=== PATIENT | female | born 1940 | race Caucasian/White ===

== ENCOUNTER 2019-10-26 15:22 | Emergency (ER) | payer MEDICARE, OTHER, SELFPAY ==
--- NOTE | ~2019-10-26 | XR_ITS ---
EXAMINATION: XR chest 2V INDICATION: Wheezing and cough for 5 days PROCEDURE: 2 view chest COMPARISON: No prior studies for comparison. FINDINGS: The lungs are clear. Postsurgical changes consistent with CABG. The lungs are hyperinflated which is consistent with, but not diagnostic of chronic obstructive pulmonary disease. The cardiomed iastinal silhouette is within normal limits. There are no pleural effusions. There is no pneumothor ax suspected. IMPRESSION: 1: NO ACUTE CARDIOPULMONARY DISEASE. Reviewed, dictated and finalized at location A.
[2019-10-26 15:30] VITALS: BP 154/79; PULSE 75; RESP 16; TEMP 36.8; O2SAT 98
--- NOTE | 2019-10-26 15:44 | ED.URI ---
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 Patient her cough is from sinus drainage in her throat; denies fever nausea vomiting diarrhea, her O2 sats are stable at 90% Related Data Home Medications Medication Instructions Recorded Confirmed aspirin 81 mg PO DAILY 10/26/19 10/26/19 hydrochlorothiazide 25 mg PO DAILY 10/26/19 10/26/19 hydroxychloroquine 200 mg PO BID 10/26/19 10/26/19 leflunomide 20 mg PO DAILY 10/26/19 10/26/19 Allergies Allergy/AdvReac Type Severity Reaction Status Date / Time No Known Allergies Allergy Verified 10/26/19 15:41 Review of Systems Review of Systems: Narrative: CONSTITUTIONAL: Denies fever, chills, sweats. EYES: Denies visual changes, redness, discharge. ENT: Has rhinorrhea, sinus congestion, sore throat, otalgia. CARDIOVASCULAR: Denies chest pain, palpitations, edema. RESPIRATORY: Denies dyspnea, wheezing, occasional cough GASTROINTESTINAL: Denies abdominal pain, nausea, vomiting, diarrhea. GENITOURINARY: Denies dysuria, hematuria, abnormal discharge SKIN: Denies rash or itching. NEUROLOGIC: Denies numbness, or focal weakness. PSYCHIATRIC: Denies anxiety or depression. [facility] Past Medical History Medical History (Updated 10/26/19 @ 16:31 by Kelly Casiano CNP) Chronic anticoagulation HTN (hypertension) Surgical History Surgical History (Updated 10/26/19 @ 15:52 by Kelly Casiano CNP) Heart valve replaced Family History Family History Other Diabetes mellitus Social History Social History (Updated 10/26/19 @ 15:54 by Kelly Casiano CNP) Smoking status: Former smoker Alcohol intake: never Comments At time of signature, I agree with nursing past medical, surgical, social and family history. There is no relevant family history pertinent to the presenting complaint. Exam Narrative: Exam Narrative: GENERAL: This is a well-nourished, well-developed patient, in mild distress. Patient is very hard of hearing HEAD: normocephalic, atraumatic. EYES: PERRL. Sclera clear/white. Vision is grossly intact. EARS: External ears normal, auditory canals clear and without drainage, TMs normal without perforation. Hearing grossly intact. NOSE: External nose normal without nasal discharge, nares without redness, no rhinorrhea. THROAT: Mucous membranes moist, posterior pharynx NECK: Neck supple, non-tender CARDIOVASCULAR: Regular rate and rhythm without murmurs, gallops, or rubs. RESPIRATORY: Diminished to auscultation. Breath sounds equal bilaterally. Has random wheezes, no rales, or rhonchi. GASTROINTESTINAL: Abdomen soft, non-tender, SKIN: warm, intact with no suspicious lesions or rash, good texture and turgor. NEURO: awake, alert, and oriented to person, place and time. There were no obvious focal neurologic abnormalities. Steady gait EXTREMITIES: Normal range of motion. BACK: Nontender without deformity Course Course Emergency Course: Chest [id number] Vital Signs Vital signs: Vital Signs Temperature 98.3 F 10/26/19 15:30 Pulse Rate 75 10/26/19 15:30 Respiratory Rate 16 10/26/19 15:30 Blood Pressure 154/79 H 10/26/19 15:30 Pulse Oximetry 98 10/26/19 15:30 Temperature 98.3 F 10/26/19 15:30 Pulse Rate 75 10/26/19 15:30 Respiratory Rate 16 10/26/19 15:30 Blood Pressure 154/79 H 10/26/19 15:30 Pulse Oximetry 98 10/26/19 15:30 MDM
== END 2019-10-26 16:38 | disposition home or self-care (01) ==
PROVIDERS: Emergency Provider Nurse Practitioner; PCP Family Medicine
DX: J05.0 Acute obstructive laryngitis [croup] (principal); J01.10 Acute frontal sinusitis, unspecified; Z87.891 Personal history of nicotine dependence; I10 Essential (primary) hypertension; Z95.2 Presence of prosthetic heart valve; Z79.01 Long term (current) use of anticoagulants
CPT/HCPCS: 71046; 99203; G0463

== ENCOUNTER 2020-11-28 17:19 | Emergency (ER) | payer MEDICARE, OTHER, SELFPAY ==
--- NOTE | ~2020-11-28 | XR_ITS ---
EXAMINATION: XR chest 2V DATE: 11/28/2020 17:47 INDICATION: Cough and coarse breath sounds TECHNIQUE: PA and lateral views of the chest are obtained. COMPARISON: 10/26/2019 FINDINGS: The lungs are free of acute opacities. There is no pleural effusion or pneumothorax. The ca rdiomediastinal silhouette is normal. There is mild thoracic spondylosis. IMPRESSION: 1. No acute cardiopulmonary abnormality. Reviewed, dictated and finalized at location A.
[2020-11-28 17:29] VITALS: BP 157/83; PULSE 77; RESP 16; TEMP 36.8; O2SAT 99
[2020-11-28 17:41] VITALS: BP 157/83; PULSE 77; RESP 16; TEMP 36.8; O2SAT 99
--- NOTE | 2020-11-28 17:43 | ED.URI ---
HPI - URI/Sore Throat General Chief Complaint: Upper Respiratory Infection Stated Complaint: cough History of Present Illness HPI Narrative: This is a 80-year-old female presents to the urgent care complaining of cough congestion has been going on for approximately 2 to 3 weeks. Patient denies any fever nausea and/or vomiting 2 weeks ago patient states she was diagnosed with Covid. Related Data Home Medications Medication Instructions Recorded Confirmed aspirin 81 mg PO DAILY 10/26/19 11/28/20 hydrochlorothiazide 25 mg PO DAILY 10/26/19 11/28/20 hydroxychloroquine 200 mg PO BID 10/26/19 11/28/20 leflunomide 20 mg PO DAILY 10/26/19 11/28/20 cholecalciferol (vitamin D3) 25 mcg PO DAILY 11/28/20 11/28/20 [Vitamin D3] tramadol 50 mg PO Q6H PRN 11/28/20 11/28/20 Allergies Allergy/AdvReac Type Severity Reaction Status Date / Time No Known Allergies Allergy Verified 11/28/20 17:40 Review of Systems Review of Systems: CONSTITUTIONAL: Denies fever, chills, or sweats. EYES: Denies visual changes, redness, or discharge. ENT: Denies rhinorrhea, congestion, sore throat, or otalgia. CARDIOVASCULAR:Denies chest pain, palpitations, or edema. RESPIRATORY: Reports cough or dyspnea. GASTROINTESTINAL: Denies abdominal pain, nausea, vomiting, or diarrhea. GENITOURINARY: Denies dysuria or hematuria. SKIN:[Denies rash or itching. MUSCULOSKELETAL:Denies back pain, joint pain, or myalgia. NEUROLOGIC: Denies headache, numbness, or weakness. PSYCHIATRIC:Denies anxiety or depression [facility] Past Medical History Medical History (Updated 11/29/20 @ 00:01 by Serene Quintero) Chronic anticoagulation HTN (hypertension) Surgical History Surgical History (Updated 10/26/19 @ 15:52 by Kelly Casiano CNP) Heart valve replaced Family History Family History Other Diabetes mellitus Social History Social History (Updated 10/26/19 @ 15:54 by Kelly Casiano CNP) Smoking status: Former smoker Alcohol intake: never Comments At time as signature, I have reviewed and agree with nursing past medical, social, surgical and family history. Please see nursing chart for further information. There is no relevant family history pertinent to the presenting complaint. Exam Narrative: GENERAL:Well-appearing, well-nourished, and in no acute distress. HEAD:Normocephalic, atraumatic. EYES: PERRLA ENT: Nares clear, no rhinorrhea or epistaxis. Mucous membranes moist. NECK: Supple. CHEST: Clear to auscultation in upper lobes decrease in lower lobes. No respiratory distress. HEART: Regular rate and rhythm.Normal peripheral pulses. ABDOMEN: Soft, nontender, nondistended, normal active bowel sounds. EXTREMITIES: Normal range of motion. Trace edema. SKIN: Warm, dry, no rash. NEURO: No focal deficits. Alert and oriented x3. Course Course Emergency Course: Ordering Physician: Nate Mckeon APN Date of Service: 11/28/20 Procedure(s): XR chest 2V Accession Number(s): [id number] cc: Nate Mckeon APN; Venus, Esdras Douglass MD~ EXAMINATION: XR chest 2V DATE: 11/28/2020 17:47 INDICATION: Cough and coarse breath sounds TECHNIQUE: PA and lateral views of the chest are obtained. COMPARISON: 10/26/2019 FINDINGS: The lungs are free of acute opacities. There is no pleural effusion or pneumothorax. The cardiomediastinal silhouette is normal. There is mild thoracic spondylosis. IMPRESSION: 1. No acute cardiopulmonary abnormality. Vital Signs Vital signs: Vital Signs Temperature 98.3 F 11/28/20 17:29 Pulse Rate 77 11/28/20 17:29 Respiratory Rate 16 11/28/20 17:29 Blood Pressure 157/83 H 11/28/20 17:29 Pulse Oximetry 99 11/28/20 17:29 Temperature 98.3 F 11/28/20 17:41 Pulse Rate 77 11/28/20 17:41 Respiratory Rate 16 11/28/20 17:41 Blood Pressure 157/83 H 11/28/20 17:41 Pulse Oximetry 99 11/28/20 17:41 MDM - URI/So
== END 2020-11-28 18:27 | disposition home or self-care (01) ==
PROVIDERS: Emergency Provider Nurse Practitioner Family; PCP Family Medicine
DX: U07.1 COVID-19 (principal); R05.9 Cough, unspecified; Z87.891 Personal history of nicotine dependence; Z79.01 Long term (current) use of anticoagulants; I10 Essential (primary) hypertension; Z95.2 Presence of prosthetic heart valve
CPT/HCPCS: 71046; 99213; G0463

== ENCOUNTER 2021-07-19 10:06 | Emergency (ER) | payer MEDICARE, OTHER, SELFPAY ==
--- NOTE | ~2021-07-19 | XR_ITS ---
EXAMINATION: XR chest 2V DATE: 07/19/2021 11:31 INDICATION: Cough. TECHNIQUE: Frontal and lateral views of the chest were obtained. COMPARISON: Chest 2 views 11/28/2020 FINDINGS: There is mild atelectasis at left lung base. No pleural effusion or pneumothorax. The heart size is normal. There are surgical clips in the mediastinum. Radiopaque markers overlying the heart may be from aortic valve replacement. IMPRESSION: 1. Mild atelectasis at left lung base. Reviewed, dictated and finalized at location A.
[2021-07-19 10:11] VITALS: BP 164/64; PULSE 72; RESP 16; TEMP 36.2; O2SAT 100
--- NOTE | 2021-07-19 11:10 | ED.URI ---
HPI - URI/Sore Throat General Chief Complaint: Upper Respiratory Infection Stated Complaint: sinus infection Time Seen by Provider: 07/19/21 11:10 Source: patient and RN notes reviewed Mode of arrival: ambulatory Limitations: no limitations History of Present Illness HPI Narrative: 81-year-old female presents with concern for 4 to 5-day history of sinus congestion, headache, sinus pressure, green nasal drainage, ear fullness, muffled hearing, postnasal drainage. Is not vaccinated for flu or COVID. She denies taking her temperature, she denies nausea, vomiting, abdominal pain, fever. MD elicited complaint: cough and nasal congestion Related Data Home Medications Medication Instructions Recorded Confirmed aspirin 81 mg tablet,delayed 81 mg PO DAILY 10/26/19 07/19/21 release hydrochlorothiazide 25 mg tablet 25 mg PO DAILY 10/26/19 07/19/21 hydroxychloroquine 200 mg tablet 200 mg PO BID 10/26/19 07/19/21 leflunomide 20 mg tablet 20 mg PO DAILY 10/26/19 07/19/21 cholecalciferol (vitamin D3) 25 25 mcg PO DAILY 11/28/20 07/19/21 mcg (1,000 unit) tablet (Vitamin D3) tramadol 50 mg tablet 50 mg PO Q6H PRN Pain (Scale Score 11/28/20 07/19/21 7-10) Allergies Allergy/AdvReac Type Severity Reaction Status Date / Time No Known Allergies Allergy Verified 07/19/21 10:17 Review of Systems Review of Systems: CONSTITUTIONAL: Report malaise. Denies chills, sweats, or fever. EYES: Denies visual changes, redness, or discharge. ENT: Reports rhinorrhea, congestion, sinus pain, otalgia. Denies sore throat. CARDIOVASCULAR: Denies chest pain, palpitations, or edema. RESPIRATORY: Reports cough. Denies dyspnea. GASTROINTESTINAL: Denies abdominal pain, nausea, vomiting, diarrhea SKIN: Denies rash or itching. MUSCULOSKELETAL: Denies myalgia. NEUROLOGIC: Reports headache. All systems reviewed & are unremarkable except as noted in HPI and below PMFSH Past Medical History Medical History (Updated 07/19/21 @ 12:04 by Brielle Ross NP) Chronic anticoagulation HTN (hypertension) Surgical History Surgical History (Updated 10/26/19 @ 15:52 by Kelly Casiano CNP) Heart valve replaced Family History Family History Other Diabetes mellitus Social History Social History (Updated 10/26/19 @ 15:54 by Kelly Casiano CNP) Smoking status: Former smoker Alcohol intake: never Comments At time of signature, agree with nursing past medical, surgical, social and family history. There is no relevant family history pertinent to the presenting complaint Exam Narrative: GENERAL: Nontoxic-appearing and in no acute distress. HEAD: Normocephalic EYES: PERRLA, conjunctivae clear ENT: Nares clear, turbinates edematous and erythematous, clear discharge. Mucous membranes moist. TM pearly sifuentes with dull light reflex bilaterally; no tragal tenderness. Oropharynx not erythematous without lesions. Tonsils not enlarged and without exudate, no drooling, no hoarseness, no trismus, uvula midline. NECK: Supple. No lymphadenopathy CHEST: Clear to auscultation, breath sounds diminished on the left. No wheezing, rhonchi, rales, or stridor. No respiratory distress, speaks in full sentences. HEART: Regular rate and rhythm. No murmur heard. SKIN: Warm, dry, no rash. NEURO: Alert and oriented x3. PSYCH: Normal mood and affect Course Course Emergency Course: Patient is aware of diagnosis, understands and agrees to treatment plan. Anticipatory guidance given. Patient agrees to follow-up as directed and is aware of reasons to seek care at the emergency department. Portions of this record may have been created with voice recognition software Level of Care: Express Care Visit Vital Signs Vital signs: Vital Signs Temperature 97.2 F L 07/19/21 10:11 Pulse Rate 72 07/19/21 10:11 Respiratory Rate 16 07/19/21 10:11 Blood Pressure 164/64 H 07/19/21 10:11 Pulse Oximetry 100 05/2
== END 2021-07-19 12:10 | disposition home or self-care (01) ==
PROVIDERS: Emergency Provider Nurse Practitioner; PCP Family Medicine
DX: J06.9 Acute upper respiratory infection, unspecified (principal); R05.9 Cough, unspecified; Z20.822 Contact with and (suspected) exposure to COVID-19; Z87.891 Personal history of nicotine dependence; I10 Essential (primary) hypertension; Z79.82 Long term (current) use of aspirin
CPT/HCPCS: 71046; 87426; 87804; 99213; C9803; G0463

== ENCOUNTER 2021-12-05 10:57 | Emergency (ER) | payer MEDICARE, OTHER, SELFPAY ==
--- NOTE | 2021-12-05 11:03 | ED.URI ---
HPI - URI/Sore Throat General Chief Complaint: Upper Respiratory Infection Stated Complaint: sinus issues Time Seen by Provider: 12/05/21 11:03 Source: patient and RN notes reviewed History of Present Illness HPI Narrative: Patient is an 81-year-old female who presents the urgent care with complaints of sinus pressure, drainage and postnasal drainage. Patient states its been ongoing for approximately 1 week and she does tend to get it every time the weather changes. Patient states that she has been using Claritin without much relief. Denies of any fevers, nausea, vomiting, shortness of breath. No other acute complaints. No acute distress noted. Patient aware of the plan of care. Some parts of this dictation were generated by voice recognition software and may contain typographical and/or grammatical inaccuracies. Related Data Home Medications Medication Instructions Recorded Confirmed aspirin 81 mg tablet,delayed 81 mg PO DAILY 10/26/19 12/05/21 release hydrochlorothiazide 25 mg tablet 25 mg PO DAILY 10/26/19 12/05/21 hydroxychloroquine 200 mg tablet 200 mg PO BID 10/26/19 12/05/21 leflunomide 20 mg tablet 20 mg PO DAILY 10/26/19 12/05/21 cholecalciferol (vitamin D3) 25 25 mcg PO DAILY 11/28/20 12/05/21 mcg (1,000 unit) tablet (Vitamin D3) tramadol 50 mg tablet 50 mg PO Q6H PRN Pain (Scale Score 11/28/20 12/05/21 7-10) Allergies Allergy/AdvReac Type Severity Reaction Status Date / Time No Known Allergies Allergy Verified 12/05/21 11:16 Review of Systems Review of Systems: CONSTITUTIONAL: Denies fever, chills, or sweats. EYES: Denies visual changes, redness, or discharge. ENT: Reports of postnasal drainage, intermittent rhinorrhea and sinus congestion/pressure CARDIOVASCULAR: Denies chest pain, palpitations, or edema. RESPIRATORY: Denies cough or dyspnea. GASTROINTESTINAL: Denies abdominal pain, nausea, vomiting, or diarrhea. GENITOURINARY: Denies dysuria or hematuria. SKIN: Denies rash or itching. MUSCULOSKELETAL: Denies back pain, joint pain, or myalgia. NEUROLOGIC: Denies headache, numbness, or weakness. All other systems reviewed are negative, except as documented in HPI. PMFSH Past Medical History Medical History (Updated 12/05/21 @ 11:21 by EKATERINA Allen) Chronic anticoagulation HTN (hypertension) Surgical History Surgical History (Updated 10/26/19 @ 15:52 by Kelly Casiano, HENNY) Heart valve replaced Family History Family History Other Diabetes mellitus Social History Social History (Updated 10/26/19 @ 15:54 by Kelly Casiano, HENNY) Smoking status: Former smoker Alcohol intake: never Comments At the time of my signature, I reviewed and agree with the nursing past medical, surgical, social, and family history. There is no relevant family history pertinent to the patient complaint. Exam Narrative: GENERAL: This is a well-nourished, well-developed patient, in no apparent distress. HEAD: normocephalic, atraumatic. Frontal sinus tenderness EYES: PERRL. Sclera clear/white. Vision is grossly intact. EARS: External ears normal, auditory canals clear and without drainage, TMs normal without perforation. Hearing grossly intact. NOSE: External nose normal with no obvious nasal discharge, nares without redness, clear rhinorrhea. THROAT: Mucous membranes moist, posterior pharynx clear. Moderate postnasal drainage NECK: Neck supple, CARDIOVASCULAR: Regular rate and rhythm with murmur RESPIRATORY: Clear to auscultation. Breath sounds equal bilaterally. No wheezes, rales, or rhonchi. SKIN: warm, intact with no suspicious lesions or rash, good texture and turgor. NEURO: awake, alert, and oriented to person, place and time. There were no obvious focal neurologic abnormalities. EXTREMITIES: No clubbing, cyanosis, or edema. Course Course Level of Care: Express Care Visit Vital Signs Vital signs: Vital Signs
[2021-12-05 11:04] VITALS: BP 157/65; PULSE 98; RESP 14; TEMP 36.9; O2SAT 100
== END 2021-12-05 11:23 | disposition home or self-care (01) ==
PROVIDERS: Emergency Provider Nurse Practitioner Family
DX: J32.9 Chronic sinusitis, unspecified (principal); I10 Essential (primary) hypertension; Z79.01 Long term (current) use of anticoagulants; Z87.891 Personal history of nicotine dependence; Z79.82 Long term (current) use of aspirin
CPT/HCPCS: 99213; G0463

== ENCOUNTER 2021-12-10 09:01 | Emergency (ER) | payer MEDICARE, OTHER, SELFPAY ==
[2021-12-10 09:36] VITALS: BP 156/70; PULSE 88; RESP 20; TEMP 36.8; O2SAT 99
--- NOTE | 2021-12-10 10:03 | ED.GENADULT ---
HPI - General Adult General Chief complaint: Upper Respiratory Infection Stated complaint: Cough/Chest Congestion Source: patient Mode of arrival: ambulatory Limitations: no limitations History of Present Illness HPI narrative: Patient presents for evaluation of sick symptoms. She was seen here on 12/05/2021 was diagnosed with sinusitis. She was given steroids. She states that her symptoms of not improved with those. She reports sinus congestion, mucopurulent discharge from her nares, and productive cough of green/yellow sputum. She denies any fever, chills, nausea, vomiting, sore throat. No recent sick contacts. She does not smoke. She did not receive COVID vaccination. No additional complaints or concerns. Related Data Home Medications Medication Instructions Recorded Confirmed aspirin 81 mg tablet,delayed 81 mg PO DAILY 10/26/19 12/05/21 release hydrochlorothiazide 25 mg tablet 25 mg PO DAILY 10/26/19 12/05/21 hydroxychloroquine 200 mg tablet 200 mg PO BID 10/26/19 12/05/21 leflunomide 20 mg tablet 20 mg PO DAILY 10/26/19 12/05/21 cholecalciferol (vitamin D3) 25 25 mcg PO DAILY 11/28/20 12/05/21 mcg (1,000 unit) tablet (Vitamin D3) tramadol 50 mg tablet 50 mg PO Q6H PRN Pain (Scale Score 11/28/20 12/05/21 7-10) Allergies Allergy/AdvReac Type Severity Reaction Status Date / Time No Known Allergies Allergy Verified 12/05/21 11:16 Review of Systems Review of Systems: CONSTITUTIONAL: Denies fever, chills, or sweats. EYES: Denies visual changes, redness, or discharge. ENT: Reports sinus congestion and mucopurulent discharge from nares. CARDIOVASCULAR: Denies chest pain, palpitations, or edema. RESPIRATORY: Reports productive cough of green/yellow sputum. Denies SOB. GASTROINTESTINAL: Denies abdominal pain, nausea, vomiting, or diarrhea. GENITOURINARY: Denies dysuria or hematuria. SKIN: Denies rash or itching. MUSCULOSKELETAL: Denies back pain, joint pain, or myalgia. NEUROLOGIC: Denies headache, numbness, dizziness, or weakness. PSYCHIATRIC: Denies anxiety or depression. [facility] Past Medical History Medical History (Updated 12/10/21 @ 10:03 by Armin Arceo, [employer], [employer]) Chronic anticoagulation HTN (hypertension) Surgical History Surgical History (Updated 10/26/19 @ 15:52 by Kelly Casiano, HENNY) Heart valve replaced Family History Family History Other Diabetes mellitus Social History Social History (Updated 10/26/19 @ 15:54 by Kelly Casiano, HENNY) Smoking status: Former smoker Alcohol intake: never Course Course Emergency Course: This is an 81-year-old female who presented for evaluation of sick symptoms. I recommended she have a chest x-ray to rule out pneumonia. She refused. She states that her insurance will charge her $1200 for that. She has rales on exam and is coughing up green/yellow sputum. Clinically, her exam is consistent with pneumonia. I will treat her for this. Her saturations are normal. Advised to go to the emergency department for worsening symptoms. She should follow-up this coming week regarding her hydroxychloroquine to see if she can restart it as there appears to be a potential interaction with her antibiotics. She is in agreement with plan of care Level of Care: Express Care Visit Vital Signs Vital signs: Vital Signs Temperature 36.8 C 12/10/21 09:36 Pulse Rate 88 12/10/21 09:36 Respiratory Rate 20 12/10/21 09:36 Blood Pressure 156/70 H 12/10/21 09:36 Pulse Oximetry 99 12/10/21 09:36 Oxygen Delivery Room Air 12/10/21 09:36 Temperature 36.8 C 12/10/21 09:36 Pulse Rate 88 12/10/21 09:36 Respiratory Rate 20 12/10/21 09:36 Blood Pressure 156/70 H 12/10/21 09:36 Pulse Oximetry 99 12/10/21 09:36 Oxygen Delivery Room Air 12/10/21 09:36 Medical Decision Making Vital Signs Vital Signs: Vital Signs Temperature 36.8 C 12/10/21 09:36
== END 2021-12-10 10:09 | disposition home or self-care (01) ==
PROVIDERS: Emergency Provider Nurse Practitioner; PCP Family Medicine
DX: J18.9 Pneumonia, unspecified organism (principal); I10 Essential (primary) hypertension; Z79.01 Long term (current) use of anticoagulants; Z28.310 Unvaccinated for COVID-19
CPT/HCPCS: 99213; G0463

== ENCOUNTER 2023-01-08 09:35 | Emergency (ER) | payer MEDICARE, OTHER, SELFPAY ==
[2023-01-08 09:42] VITALS: BP 148/67; PULSE 91; RESP 18; TEMP 36.6; O2SAT 96
--- NOTE | 2023-01-08 10:02 | ED.URI ---
HPI - URI/Sore Throat General Chief Complaint: Upper Respiratory Infection Stated Complaint: Sinus Congestion/Ear Problem/Cough Time Seen by Provider: 01/08/23 10:12 Source: patient and RN notes reviewed Mode of arrival: ambulatory Limitations: no limitations History of Present Illness HPI Narrative: 82-year-old female presents concern for 4 day history of nasal congestion, cough, ears feeling full, decreased hearing. She reports she has taken Benadryl without relief. She denies fever, aches, chills, sweats. MD elicited complaint: cough and nasal congestion Related Data Home Medications Medication Instructions Recorded Confirmed aspirin 81 mg tablet,delayed 81 mg PO DAILY 10/26/19 12/05/21 release hydrochlorothiazide 25 mg tablet 25 mg PO DAILY 10/26/19 12/05/21 hydroxychloroquine 200 mg tablet 200 mg PO BID 10/26/19 12/05/21 leflunomide 20 mg tablet 20 mg PO DAILY 10/26/19 12/05/21 cholecalciferol (vitamin D3) 25 25 mcg PO DAILY 11/28/20 12/05/21 mcg (1,000 unit) tablet (Vitamin D3) Allergies Allergy/AdvReac Type Severity Reaction Status Date / Time No Known Allergies Allergy Verified 12/05/21 11:16 Review of Systems Review of Systems: CONSTITUTIONAL: Reports malaise. Denies chills, sweats, or fever. EYES: Denies visual changes, redness, or discharge. ENT: Reports rhinorrhea, congestion, sinus pain, otalgia CARDIOVASCULAR: Denies chest pain, palpitations, or edema. RESPIRATORY: Reports cough and chest congestion. Denies dyspnea. GASTROINTESTINAL: Denies abdominal pain, nausea, vomiting, diarrhea SKIN: Denies rash or itching. MUSCULOSKELETAL: Denies myalgia. NEUROLOGIC: Denies headache. All systems reviewed & are unremarkable except as noted in HPI and below PMFSH Past Medical History Medical History (Updated 01/08/23 @ 10:21 by Brielle Ross NP) Chronic anticoagulation HTN (hypertension) Surgical History Surgical History (Updated 10/26/19 @ 15:52 by Kelly Casiano, [employer]) Heart valve replaced Family History Family History Other Diabetes mellitus Social History Social History (Updated 10/26/19 @ 15:54 by Kelly Casiano, [employer]ER) Smoking status: Former smoker Alcohol intake: never Comments At time of signature, agree with nursing past medical, surgical, social and family history. There is no relevant family history pertinent to the presenting complaint Exam Narrative: GENERAL: Nontoxic appearing and in no acute distress. HEAD: Normocephalic EYES: PERRLA, conjunctivae clear ENT: Nares clear, turbinates edematous and erythematous. Mucous membranes moist. TM pearly sifuentes with dull light reflex bilaterally; no tragal tenderness. Oropharynx not erythematous without lesions. Tonsils not enlarged and without exudate, no drooling, no hoarseness, no trismus, uvula midline. NECK: Supple. No lymphadenopathy CHEST: Scattered rhonchi and wheeze, breath sounds equal. No rales, or stridor. No respiratory distress, speaks in full sentences. HEART: Regular rate and rhythm. No murmur heard. SKIN: Warm, dry, no rash. NEURO: Alert and oriented x3. PSYCH: Normal mood and affect Course Course Emergency Course: Patient is aware of diagnosis, understands and agrees to treatment plan. Anticipatory guidance given. Patient agrees to follow-up as directed and is aware of reasons to seek care at the emergency department. Portions of this record may have been created with voice recognition software Level of Care: Express Care Visit Vital Signs Vital signs: Vital Signs Temperature 97.9 F 01/08/23 09:42 Pulse Rate 91 01/08/23 09:42 Respiratory Rate 18 01/08/23 09:42 Blood Pressure 148/67 H 01/08/23 09:42 Pulse Oximetry 96 01/08/23 09:42 Oxygen Delivery Room Air 01/08/23 09:42 Temperature 97.9 F 01/08/23 09:42 Pulse Rate 91 01/08/23 09:42 Respiratory Rate 18 01/08/23 09:42 Blood Pressure
== END 2023-01-08 10:27 | disposition home or self-care (01) ==
PROVIDERS: Emergency Provider Nurse Practitioner; PCP Family Medicine
DX: J06.9 Acute upper respiratory infection, unspecified (principal); R05.9 Cough, unspecified; Z87.891 Personal history of nicotine dependence; I10 Essential (primary) hypertension; Z79.82 Long term (current) use of aspirin
CPT/HCPCS: 99213; G0463

== ENCOUNTER 2023-05-05 08:03 | Emergency (ER) | payer MEDICARE, OTHER, SELFPAY ==
--- NOTE | 2023-05-05 08:07 | ED.URI ---
HPI - URI/Sore Throat General Chief Complaint: Upper Respiratory Infection Stated Complaint: cough / sob Time Seen by Provider: 05/05/23 08:13 Source: patient, RN notes reviewed and old records reviewed Mode of arrival: ambulatory Limitations: no limitations History of Present Illness HPI Narrative: 82-year-old female who presents to [facility] with complaints of cough with some dyspnea at times for the past 4-5 days. Patient reports that she has some sinus drainage, denies any fevers chills or sweats or body aches. Patient reports that she does have an inhaler and has used it a few times in the past few days. Patient reports that her cough does seem worse at night or if she is supine, reports cough is productive at times of clear mucous. MD elicited complaint: cough, rhinorrhea and nasal congestion Pertinent past history: immunosuppression and other (former smoker) Onset (ago): day(s) (4-5 days) Consistency: intermittent Severity: moderate Able to tolerate fluids by mouth: Yes Treatments prior to arrival: other (has used her inhaler) Related Data Home Medications Medication Instructions Recorded Confirmed aspirin 81 mg tablet,delayed 81 mg PO DAILY 10/26/19 05/05/23 release hydrochlorothiazide 25 mg tablet 25 mg PO DAILY 10/26/19 05/05/23 hydroxychloroquine 200 mg tablet 200 mg PO BID 10/26/19 05/05/23 leflunomide 20 mg tablet 20 mg PO DAILY 10/26/19 05/05/23 cholecalciferol (vitamin D3) 25 25 mcg PO DAILY 11/28/20 05/05/23 mcg (1,000 unit) tablet (Vitamin D3) cyanocobalamin (vitamin B-12) 500 500 mcg PO DAILY 05/05/23 05/05/23 mcg tablet gabapentin 100 mg capsule 100 mg PO TID 05/05/23 05/05/23 tramadol 50 mg tablet 50 mg PO QID PRN Pain 05/05/23 05/05/23 Allergies Allergy/AdvReac Type Severity Reaction Status Date / Time No Known Allergies Allergy Verified 12/05/21 11:16 Review of Systems Review of Systems: CONSTITUTIONAL: Reports malaise, no chills, sweats, or fever. EYES: Denies visual changes, redness, or discharge. ENT: Reports rhinorrhea, congestion, no sinus pain, no otalgia and no sore throat. CARDIOVASCULAR: Denies chest pain, palpitations, or edema. RESPIRATORY: Reports cough.? states some dyspnea at times GASTROINTESTINAL: Denies abdominal pain, nausea, vomiting, diarrhea SKIN: Denies rash or itching. MUSCULOSKELETAL: Denies myalgia. NEUROLOGIC: Denies headache. All systems reviewed & are unremarkable except as noted in HPI and below PMFSH Past Medical History Medical History Chronic anticoagulation HTN (hypertension) Rheumatoid arthritis Surgical History Surgical History Heart valve replaced Family History Family History Other Diabetes mellitus Social History Social History (Updated 05/05/23 @ 09:01 by Mirlande Sandhu NP) Smoking status: Former smoker Alcohol intake: never Living arrangements: alone Occupation/Education: retired Gender identity (if verbalized by the patient): Female Comments At time of signature, agree with nursing past medical, surgical, social and family history. There is no relevant family history pertinent to the presenting complaint Exam Narrative: GENERAL: Well-appearing, well-nourished, and in no acute distress. HEAD: Normocephalic EYES: PERRLA, conjunctivae clear ENT: Nares clear, turbinates edematous and erythematous, clear discharge. Mucous membranes moist. TM pearly sifuentes with dull light reflex bilaterally; no tragal tenderness. Oropharynx erythematous without lesions. Tonsils not enlarged and without exudate, no drooling, no hoarseness, no trismus, uvula midline.post nasal drainage NECK: Supple. No lymphadenopathy CHEST: Clear to auscultation, breath sounds equal. No wheezing, rhonchi, rales, or stridor. No respiratory distress, speaks i
[2023-05-05 08:08] VITALS: BP 148/72; PULSE 94; RESP 20; TEMP 36.1; O2SAT 97
[2023-05-05 08:15] VITALS: BP 148/72; PULSE 94; RESP 20; TEMP 36.1; O2SAT 97
== END 2023-05-05 08:35 | disposition home or self-care (01) ==
PROVIDERS: Emergency Provider Registered Nurse; PCP Family Medicine
DX: J06.9 Acute upper respiratory infection, unspecified (principal); Z87.891 Personal history of nicotine dependence; I10 Essential (primary) hypertension; M06.9 Rheumatoid arthritis, unspecified; Z79.82 Long term (current) use of aspirin
CPT/HCPCS: 99213; G0463

== ENCOUNTER 2023-08-11 09:36 | Emergency (ER) | payer MEDICARE, OTHER, SELFPAY ==
[2023-08-11 09:42] VITALS: BP 119/79; PULSE 61; RESP 20; TEMP 37; O2SAT 96
--- NOTE | 2023-08-11 09:47 | ED.URI ---
HPI - URI/Sore Throat General Chief Complaint: Upper Respiratory Infection Stated Complaint: head cold Time Seen by Provider: 08/11/23 09:47 Source: patient, RN notes reviewed and old records reviewed Mode of arrival: ambulatory Limitations: no limitations History of Present Illness HPI Narrative: 83 year old female who presents to [facility] with complaints of cough which is productive and also some nasal congestion with drainage, sinus pressure for the past week duration. Patient reports that she had noted some wheezing initially but that has improved, but cough is productive and is constant denies any dyspnea. Patient reports that nasal congestion and drainage is constant and is also been yellow tinged. Patient reports no fevers, chills or sweats. Patient states that she has an inhaler at home but it is old. MD elicited complaint: cough, rhinorrhea and nasal congestion Pertinent past history: pneumonia, sinusitis and immunosuppression Onset (ago): week(s) (1) Consistency: constant Severity: moderate Description of mucous: clear and yellow Able to tolerate fluids by mouth: Yes Treatments prior to arrival: none Related Data Home Medications Medication Instructions Recorded Confirmed aspirin 81 mg tablet,delayed 81 mg PO DAILY 10/26/19 05/05/23 release hydrochlorothiazide 25 mg tablet 25 mg PO DAILY 10/26/19 05/05/23 hydroxychloroquine 200 mg tablet 200 mg PO BID 10/26/19 05/05/23 leflunomide 20 mg tablet 20 mg PO DAILY 10/26/19 05/05/23 cholecalciferol (vitamin D3) 25 25 mcg PO DAILY 11/28/20 05/05/23 mcg (1,000 unit) tablet (Vitamin D3) cyanocobalamin (vitamin B-12) 500 500 mcg PO DAILY 05/05/23 05/05/23 mcg tablet gabapentin 100 mg capsule 100 mg PO TID 05/05/23 05/05/23 tramadol 50 mg tablet 50 mg PO QID PRN Pain 05/05/23 05/05/23 Allergies Allergy/AdvReac Type Severity Reaction Status Date / Time No Known Allergies Allergy Verified 12/05/21 11:16 Review of Systems Review of Systems: CONSTITUTIONAL: Denies malaise, chills, sweats, or fever. EYES: Denies visual changes, redness, or discharge. ENT: Reports rhinorrhea, congestion, sinus pain,no otalgia and no sore throat. CARDIOVASCULAR: Denies chest pain, palpitations, or edema. RESPIRATORY: Reports productive cough.? Denies dyspnea. GASTROINTESTINAL: Denies abdominal pain, nausea, vomiting, diarrhea SKIN: Denies rash or itching. MUSCULOSKELETAL: Denies myalgia. NEUROLOGIC: Denies headache. All systems reviewed & are unremarkable except as noted in HPI and below PMFSH Past Medical History Medical History Chronic anticoagulation HTN (hypertension) Rheumatoid arthritis Surgical History Surgical History Heart valve replaced Family History Family History Other Diabetes mellitus Social History Social History (Updated 05/05/23 @ 09:01 by Mirlande Sandhu NP) Smoking status: Former smoker Alcohol intake: never Living arrangements: alone Occupation/Education: retired Gender identity (if verbalized by the patient): Female Comments At time of signature, agree with nursing past medical, surgical, social and family history. There is no relevant family history pertinent to the presenting complaint Exam Narrative: GENERAL: Well-appearing, well-nourished, and in no acute distress. HEAD: Normocephalic EYES: PERRLA, conjunctivae clear ENT: Nares clear, turbinates edematous and erythematous, clear to yellow discharge. Mucous membranes moist. TM pearly sifuentes with dull light reflex bilaterally; no tragal tenderness. Oropharynx erythematous without lesions. Tonsils not enlarged and without exudate, no drooling, no hoarseness, no trismus, uvula midline.post nasal drainage noted. NECK: Supple. No lymphadenopathy CHEST: Clear to auscultation, breat
== END 2023-08-11 10:17 | disposition home or self-care (01) ==
PROVIDERS: Emergency Provider Registered Nurse; PCP Family Medicine
DX: R05.9 Cough, unspecified (principal); J01.40 Acute pansinusitis, unspecified; I10 Essential (primary) hypertension; M06.9 Rheumatoid arthritis, unspecified; Z95.2 Presence of prosthetic heart valve; Z79.82 Long term (current) use of aspirin
CPT/HCPCS: 99213; G0463

== ENCOUNTER 2024-04-14 10:21 | Emergency (ER) | payer MEDICARE, OTHER, SELFPAY ==
--- NOTE | ~2024-04-14 | XR_ITS ---
XR chest 2V 04/14/2024 12:28 Indication: Cough and congestion Procedure: 2 view chest Comparison: 07/19/2021 Findings: Heart size normal. There is left basilar atelectasis. No focal pneumonia, pleural effusion or pneumothorax. No acute osseous abnormality. The lungs are hyperinflated which is consistent with, but not diagnostic of chronic obstructive pulmonary disease. Impression: 1: Left basilar atelectasis. Reviewed, dictated and finalized at location B. UNICATIONS OFFICER Impression: 1: Left basilar atelectasis.
[2024-04-14 10:27] VITALS: BP 137/54; PULSE 63; RESP 20; TEMP 36.6; O2SAT 98
--- NOTE | 2024-04-14 12:11 | ED_ITS ---
HPI - URI/Sore Throat General Chief Complaint: Upper Respiratory Infection Stated Complaint: Cough/Chest Congestion Time Seen by Provider: 04/14/24 12:00 Source: patient, RN notes reviewed and old records reviewed Mode of arrival: ambulatory Limitations: no limitations History of Present Illness HPI Narrative: 83-year-old female who presents to [facility] with complaints cough and congestion for the past 2 days with expectoration of yellow mucous. Patient reports no known fevers or chills or body aches states that she feels tired. Patient has noted harsh productive cough denies any shortness of breath has noted some wheezes at time.Patient has not taken any OTC medication for her symptoms MD elicited complaint: cough, rhinorrhea, nasal congestion and other (productive cough) Pertinent past history: COPD and other (aortic valve replacement) Onset (ago): day(s) (2) Severity: moderate Description of mucous: yellow Able to tolerate fluids by mouth: Yes Treatments prior to arrival: none Related Data Home Medications ?Medication ?Instructions ?Recorded ?Confirmed ?Last Taken ?Type aspirin 81 mg tablet,delayed 81 mg PO DAILY 10/26/19 05/05/23 Unknown History release hydrochlorothiazide 25 mg tablet 25 mg PO DAILY 10/26/19 05/05/23 Unknown History leflunomide 20 mg tablet 20 mg PO DAILY 10/26/19 05/05/23 Unknown History cyanocobalamin (vitamin B-12) 500 500 mcg PO DAILY 05/05/23 05/05/23 Unknown History mcg tablet gabapentin 100 mg capsule 100 mg PO TID 05/05/23 05/05/23 Unknown History tramadol 50 mg tablet 50 mg PO QID PRN Pain 05/05/23 05/05/23 Unknown History carvedilol 3.125 mg tablet mg 04/14/24 Unknown History Allergies Allergy/AdvReac Type Severity Reaction Status Date / Time No Known Allergies Allergy Verified 04/14/24 10:32 Review of Systems Review of Systems: CONSTITUTIONAL: Reports malaise,no chills, sweats, or fever. reports feels tired EYES: Denies visual changes, redness, or discharge. ENT: Reports rhinorrhea, congestion,no sinus pain, no otalgia and no sore throat. CARDIOVASCULAR: Denies chest pain, palpitations, or edema. RESPIRATORY: Reports productive cough.? Denies dyspnea. GASTROINTESTINAL: Denies abdominal pain, nausea, vomiting, diarrhea SKIN: Denies rash or itching. MUSCULOSKELETAL: Denies myalgia. NEUROLOGIC: Denies headache. All systems reviewed & are unremarkable except as noted in HPI and below PMFSH Past Medical History Medical History Rheumatoid arthritis Chronic anticoagulation HTN (hypertension) Surgical History Surgical History Heart valve replaced Family History Family History Other Diabetes mellitus Social History Social History Smoking status: Former smoker Alcohol intake: never Living arrangements: alone Occupation/Education: retired Gender identity (if verbalized by the patient): Female Comments At time of signature, agree with nursing past medical, surgical, social and family history. There is no relevant family history pertinent to the presenting complaint Exam Narrative: GENERAL: Chronic ill appearing, well-nourished, and in no acute distress. HEAD: Normocephalic EYES: PERRLA, conjunctivae clear ENT: Nares clear, turbinates edematous and erythematous, clear discharge. Mucous membranes moist. TM pearly sifuentes with dull light reflex bilaterally; no tragal tenderness. Oropharynx erythematous without lesions. Tonsils not enlarged and without exudate, no drooling, no hoarseness, no trismus, uvula midline.post nasal drainage noted NECK: Supple. No lymphadenopathy CHEST: Scattered rhonchi on auscultation, breath sounds equal. No wheezing, +rhonchi,no rales, or stridor. No respiratory distress, speaks in full sentences.productive cough SAO2 98% on room air HEART: Regular rate and rhythm. No murmur heard. SKIN: Warm, dry, no rash. NEURO: Alert and oriented x3. PSYCH: Normal mood and affect Course Course Emergency Course: Patient is aware of diagnosis, understands and agrees to treatment plan.? Anticipatory guidance given.? Patient agrees to follow-up as directed and is aware of reasons to seek care at the emergency department. Portions of this record may have been created with voice recognition software Level of Care: Express Care Visit Vital Signs Vital signs: Vital Signs Temperature 36.6 C 04/14/24 10:27 Pulse Rate 63 04/14/24 10:27 Respiratory Rate 20 04/14/24 10:27 Blood Pressure 137/54 L 04/14/24 10:27 Pulse Oximetry 98 04/14/24 10:27 Oxygen Delivery Room Air 04/14/24 10:27 Temperature 36.6 C 04/14/24 10:27 Pulse Rate 63 04/14/24 10:27 Respiratory Rate 20 04/14/24 10:27 Blood Pressure 137/54 L 04/14/24 10:27 Pulse Oximetry 98 04/14/24 10:27 Oxygen Delivery Room Air 04/14/24 10:27 Reviewed MDM - URI/Sore Throat MDM Narrative Medical decision making narrative: Differential diagnosis considered: Cole virus, strep pharyngitis, allergic rhinitis, upper respiratory tract infection, sinusitis, rhinosinusitis, nasopharyngitis. viral pharyngitis, otitis media, otitis externa, pneumonia, bronchitis, viral cough syndrome, viral syndrome, and influenza.? Exam findings show no acute concerns or changes; patient is non-toxic appearing and is in no distress.? Patient is appropriate for outpatient treatment and follow-up. Differential Diagnosis Differential diagnosis: Likely upper respiratory infection, viral infection, bronchitis, influenza and other (COVID, cough and congestion, exacerbation of COPD) Medical Records Attestation: I reviewed the patient's medical records. Lab Data Attestation: I reviewed the patient's lab results. Lab results narrative: Influenza A negative, Influenza B negative, COVID antigen negative Labs: Lab Results 04/14/24 Range/Units 10:47 POC Influenza A Ag Negative (Negative) POC Influenza B Ag Negative (Negative) POC SARS CoV-2 Ag Negative (Negative) reviewed Imaging Data Attestation: I personally reviewed and interpreted this imaging study as follows: My impression: left basilar atelectasis Radiologist's impression: [facility] [address] [place] [address] XRay Report Signed Patient: Jocelyn Tlelo : 1940 MR#: [id number] Age: 83 Acct:[id number] Loc: [facility] ADM Date: 04/14/24Attending Dr: Ordering Physician: Mirlande Sandhu APRN Date of Service: 04/14/24 Procedure(s): XR chest 2V Accession Number(s): [id number] cc: Venus, Esdras Douglass MD; Mirlande Sandhu APRN~ XR chest 2V 04/14/2024 12:28 Indication: Cough and congestion Procedure: 2 view chest Comparison: 07/19/2021 Findings: Heart size normal. There is left basilar atelectasis. No focal pneumonia, pleural effusion or pneumothorax. No acute osseous abnormality. The lungs are hyperinflated which is consistent with, but not diagnostic of chronic obstructive pulmonary disease. Impression: 1: Left basilar atelectasis. Reviewed, dictated and finalized at location B. E ENTERTAINER Please be advised this is a medical document. It is intended for [id number] communication. It is written in medical language and may contain unfamiliar abbreviations or verbiage. Medical documents are intended to carry relevant information, facts as evident, and the clinical opinion of the practitioner at the time of the encounter. This report may have been done utilizing a voice recognition system. Attempts have been made to correct errors. However, there may be uncorrected grammatical, spelling, and recognition errors present. The file time of this note does not necessarily represent the time of service. Dictated By: Darion Warren MD 04/14/24 1228 Signed By: <Electronically signed by Darion Warren MD in OV> Critical Care Time Critical Care Time Critical Care Time: No Discharge Plan Discharge Clinical Impression: Upper respiratory infection with cough and congestion Patient Disposition: Home, Self-Care Condition: Stable Instructions: Antibiotic Form, Upper Respiratory Infection (ED), Acute Cough (ED) Additional Instructions: Increase fluids especially juices and water Cjjw-[id number] cough and cold medicine of your choice for your symptoms Mucinex daily and increase oral fluids while taking Continue your inhaler/nebulizer as directed Steroids as directed--take with food heat to the face 20-30 minutes 4-6 times a day for pain Salt water gargles, throat lozenges or throat sprays as desired Antibiotic as directed--finished the medication If your symptoms persist, change or worsen significantly before you can contact your personal physician then please, without delay, go to the emergency department for further evaluation. Follow-up with PCP in 7-10 days or sooner if needed Follow up with PCP soon in regards to your blood pressure which is elevated above threshold for referral. Blood pressure above 120/80 may indicate pre- hypertension. 137/54 Patient Language: Icelandic Prescriptions: New prednisone 20 mg tablet 20 mg PO BID Qty: 10 0RF amoxicillin-pot clavulanate 875-125 mg tablet 1 tablet PO Q12H Qty: 20 0RF albuterol sulfate [Ventolin HFA] 90 mcg/actuation HFA aerosol inhaler 2 puff inhalation QID PRN (Reason: shortness of breath or wheezing) Qty: 6.7 0RF Rx Instructions: use for any shortness of breath No Action gabapentin 100 mg capsule 100 mg PO TID tramadol 50 mg tablet 50 mg PO QID PRN (Reason: Pain) cyanocobalamin (vitamin B-12) 500 mcg tablet 500 mcg PO DAILY carvedilol 3.125 mg tablet aspirin 81 mg Tablet,Delayed Release (Dr/Ec) 81 mg PO DAILY leflunomide 20 mg Tablet 20 mg PO DAILY hydrochlorothiazide 25 mg Tablet 25 mg PO DAILY (DME) BreatheRite Spacer-Mask,Adult Spacer See Rx Instructions .Route Qty: 1 0RF Rx Instructions: As directed Follow-up/Referrals: Venus,Esdras Douglass MD [Primary Care Provider] - Time of Disposition: 12:45 Quality [place] Coma Scale Eyes: Open Verbal: Oriented and Alert Motor: Follows Commands Laura Coma Total Score: 15
--- OUTSIDE RECORDS SUMMARY | 2024-04-14 13:22 | XMS_ITS | Encounter Summary ---
Author Organization [facility] Address [address] [place], [place] [address] [place] [address] Phone Care Team Providers Care Film Painter Name Role Phone Esdras Donovan MD Primary Care Provider [phone] Murray Saab MD Unavailable Unavailabl e Geronimo Coe MD Unavailable [phone] Ravi Tanner PAC Unavailable [phone] Reason for Visit * Reason Comments Medication Refill Encounter Details Date Type Department Care Team (Late st Contact Info) Description 09/22/2021 Refill [facility] - Family Medicine [facility] [address] [place] [address] Esdras Donovan MD [address] [address] Medication Refill Social History Tobacco Use Types Packs/Day Years Used Date Smoking Tobacco: Never Smokeless Tobacco: Never Alcohol Use Standard Drinks/Week Comments No 0 (1 standard drink = 0.6 oz pur e alcohol) PHQ-2 Answer Date Recorded Total Score - Questions 1-9 0 08/27 Sexually Active Control Partners Comments Not Currently Comments No Sex and Gender Information Value Date Recorded Sex Assigned at Not on file Legal Sex Female 9:52 PM CDT Gender Identity Not on file Sexual Orientation Not on file COVID-19 Exposure Response Date Recorded In the last 10 days, have yo u been in contact with someone who was confirmed or suspected to have Coronavirus/COVID-19? No / Unsure 09/14/2021 8:52 AM CDT documented as of this encounter Miscellaneous Notes * Telephone Encounter - Laura Rizvi RN - 09/23/2021 9:02 AM CDT Medication failed the protocol, provider to review and approve the medication order if appropriate. Requested Prescriptions Pending Prescriptions Disp Refills hydroCHLOROthiazide 25 MG Tablet [Pharmacy Med Name: HYDROCHLOROTHIAZIDE TABS 25MG] 90 Tablet 3 Sig: TAKE 1 TABLET DAILY Diuretics Protocol Failed - 09/22/2021 11:19 PM Failed - Serum potassium on record in past 12 months No results found for: POTASSIUM, POCTK Failed - Serum sodium on record in past 12 months No results found for: SODIUM Failed - GFR on record in past 12 months No results found for: GFRNA Passed - Blood pressure on record in past 12 months Clinician-entered: BP Readings from Last 3 Encounters: 09/14/21 138/72 12/31/20 132/84 09/30/20 122/66 Patient-entered: No data recorded Passed - Visit with relevant provider in past 12 months or upcoming 90 days Recent Visits Date Type Provider Dept 09/14/21 Office Visit Esdras Donovan MD [facility] 12/31/20 Office Visit Esdras Donovan MD [facility] 09/30/20 Office Visit Jono Maynard APRN, RELIGIOUS EDUCATION COORDINATOR [facility] Showing recent visits within past 365 days and meeting all other requirements Future Appointments Date Type Provider Dept 12/19/21 Appointment Esdras Donovan MD [facility] Showing future appointments within next 90 days and meeting all other requirements documented in this encounter Plan of Treatment Upcoming Encounters Date Type Department Care Team (Late st Contact Info) Description 04/22/2024 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 Office Visit [facility] - Family Medicine - [place] [address] [place] [address] Esdras Donovan MD [id number] [place] [address] documented as of this encounter Visit Diagnoses Not on filedocumented in this encounter Additional Health Concerns Assessment Noted Time PHQ-9 Depression Total Score: 0 04/02/19 20 8:40 AM SANDING MACHINE BUFFER documented as of this encounter Care Teams Film Painter Relationship Specialty Start Date End Date Esdras Donovan MD [address] [address] PCP - General Family Medicine 09/06/16 Murray Saab MD [address] [address] Pain Medicine-Pain Management 09/06/16 Geronimo Coe MD [address] [address] Rheumatology 09/06/16 Ravi Tanner PAC [address] [place] [address] Physician Paper Box Maker Physician Paper Box Maker 12/20/23 documented as of this encounter
--- OUTSIDE RECORDS SUMMARY | 2024-04-14 13:22 | XMS_ITS | Patient Health Summary ---
Author Organization [facility] Address [address] [place] [address] Care Team Providers Care Armature Tester Name Role Phone Evangelina Coe MD Unavailable Juan Miguel Monique MD Unavailable [phone] Esdras Donovan MD Primary Care Provider [phone] Note from [facility],non-owned Affiliates and Associated Physician Practices is amultiple site organization consisting of ambulatory clinics and hospital sitesin [place], [place], [place]. This disclosure is being madepursuant to the Care Everywhere program and may not contain all information available regarding this patient. Last updated 17.[facility] Allergies No known active allergies* Hydroxychloroquine(Other),Inactive * Leflunomide(Other),Inactive Medications * Be aware that medications may not be up to date on this document. Alwaysverify current medications with the patient. * hydroCHLOROthiazide (HYDRODIURIL) 25 MG tablet(Started 10/08/2017) Take 1 (one) tablet by mouth once daily * aspirin EC (ECOTRIN) 81 MG tablet Take 1 (one) tablet by mouth once daily * vitamin D, cholecalciferol, 2000 units tablet Take 0.5 (one-half) tablet by mouth once daily * fluticasone propionate (FLONASE) 50 MCG/ACT nasal spray(Started 12/09/2018) [place] 2 sprays into each nostril once daily * D 1000 25 MCG (1000 UT) capsule(Started 03/22/2019) Take 1 (one) capsule by mouth once daily * cyanocobalamin (VITAMIN B-12) 500 MCG tablet(Started 09/19/2019) * predniSONE (Deltasone) 10 MG tablet(Started 03/02/2022) 1 tab po qday for 10 days * gabapentin (Neurontin) 100 MG capsule(Started 07/06/2022) Take 1 (one) capsule by mouth * traMADol (Ultram) 50 MG tablet(Started 07/06/2022) Take 1 (one) tablet by mouth every 6 hours as needed * hydroxychloroquine (Plaquenil) 200 MG tablet(Started 03/27/2023) Take 1 (one) tablet by mouth 2 times daily * albuterol HFA (Proventil; Ventolin; Proair) 108 (90 Base) MCG/ACT inhaler (Started 08/11/2023) Inhale 2 (two) puffs by mouth every 6 hours as needed * carvedilol (Coreg) 3.125 MG tablet(Started 05/18/2023) Take 1 (one) tablet by mouth 2 times daily * empagliflozin (Jardiance) 10 MG tablet(Started 05/18/2023) Take 1 (one) tablet by mouth once daily * furosemide (Lasix) 40 MG tablet(Started 05/18/2023) Take 1 (one) tablet by mouth once daily * pantoprazole EC (Protonix) 40 MG tablet(Started 05/18/2023) Take 1 (one) tablet by mouth once daily * sacubitril-valsartan (Entresto) 24-26 MG tablet(Started 05/18/2023) Take 1 (one) tablet by mouth every morning * predniSONE (Deltasone) 10 MG tablet(Started 10/09/2023) 1 tab po q day as needed 1 refill by 10/08/2024 * leflunomide (Arava) 20 MG tablet(Started 10/12/2023) Take 1 (one) tablet by mouth once daily * leflunomide (Arava) 20 MG tablet(Started 12/20/2023) Take 1 (one) tablet by mouth once daily Active Problems Problem Noted Date Diagnosed Date B12 deficiency 09/20/2018 Rheumatoid arthritis with positive rheumatoid fa ctor 10/11/2017 High blood pressure 06/14/2017 Vitamin D insufficiency 05/27/2017 Chronic pain disorder 09/06/2016 Sciatica 09/06/2016 Rheumatoid arthritis involvi ng multiple sites with positive rheumatoid factor 04/27/2015 Aortic valve disorder 07/12/2013 Chronic rhinitis 07/12/2013 Hyperlipidemia 07/12/2013 Immunizations * INFLUENZA VACCINE, TRIV. (AFLURIA, FLUZONE TRIVALENT; 6MO+) (IIV3)(Given 11/27/2011, 11/25/2010, 12/11/2008) * PNEUMOCOCCAL PPSV23(Given 11/27/2011) * TD (ADULT), 5 LF TETANUS TOXOID, ADSORBED, PF(Given 10/04/2012) * TD (AGE 6-ADULT)(Given 10/04/2012) * Td (Adult), 2 Lf Tetanus Toxoid, Adsorbed, Pf(Given 10/04/2012) Social History Tobacco Use Types Packs/Day Years Used Date Smoking Tobacco: Former Cigarettes Q uit: 04/26/2005 Smokeless Tobacco: Never Tobacco Cessation:Counseling Given: Not Answered Alcohol Use Standard Drinks/Week Comments No 0 (1 standard drink = 0.6 oz pur e alcohol) PHQ-2 Answer Date Recorded Patient Health Questionnaire-2 Score 0 10/09/2023 Sex and Gender Information Value Date Recorded Sex Assigned at Not on file Gender Identity Not on file Sexual Orientation Not on file Last Filed Vital Signs Vital Sign Reading Time Taken Comments Blood Pressure 154/78 12/20/2023 10:49 AM CDT Pulse 51 12/20/2023 10:49 AM CDT Temperature 36.2 C (97.2 F) 03/01/2021 8:51 AM TELEPHONE INTERVIEWER Respiratory Rate 18 12/20/2023 10:49 AM CDT Oxygen Saturation 98% 12/20/2023 10:49 AM CDT Inhaled Oxygen Concentration - - Weight 57 kg (125 lb 9.6 oz) 12/20/2023 10:49 AM CDT Height 157.5 cm (5' 2 ) 12/20/2023 10:49 AM CDT Body Mass Index 22.97 12/20/2023 10:49 AM CDT Procedures * C-REACTIVE PROTEIN(Performed 02/28/2023) * CBC W AUTO DIFFERENTIAL(Performed 02/28/2023) * ERYTHROCYTE SEDIMENTATION RATE(Performed 02/28/2023) * COMPREHENSIVE METABOLIC PANEL(Performed 02/28/2023) * ERYTHROCYTE SEDIMENTATION RATE(Performed 09/04/2022) Performed for Rheumatoid arthritis involving multiple sites with positive rheumatoid factor (HCC) * C-REACTIVE PROTEIN(Performed 09/04/2022) Performed for Rheumatoid arthritis involving multiple sites with positive rheumatoid factor (HCC) * COMPREHENSIVE METABOLIC PANEL(Performed 09/04/2022) Performed for Rheumatoid arthritis involving multiple sites with positive rheumatoid factor (HCC) * CBC W AUTO DIFFERENTIAL(Performed 09/04/2022) Performed for Rheumatoid arthritis involving multiple sites with positive rheumatoid factor (HCC) * HEPATITIS SCREEN ACUTE(Performed 03/30/2022) * ERYTHROCYTE SEDIMENTATION RATE(Performed 03/30/2022) Performed for Rheumatoid arthritis involving multiple sites with positive rheumatoid factor (HCC) * C-REACTIVE PROTEIN(Performed 03/30/2022) Performed for Rheumatoid arthritis involving multiple sites with positive rheumatoid factor (HCC) * COMPREHENSIVE METABOLIC PANEL(Performed 03/30/2022) Performed for Rheumatoid arthritis involving multiple sites with positive rheumatoid factor (HCC) * CBC W AUTO DIFFERENTIAL(Performed 03/30/2022) Performed for Rheumatoid arthritis involving multiple sites with positive rheumatoid factor (HCC) * C-REACTIVE PROTEIN(Performed 12/21/2021) Performed for Rheumatoid arthritis involving multiple sites with positive rheumatoid factor (HCC), Medication monitoring encounter * CBC W AUTO DIFFERENTIAL(Performed 12/21/2021) Performed for Rheumatoid arthritis involving multiple sites with positive rheumatoid factor (HCC), Medication monitoring encounter * ERYTHROCYTE SEDIMENTATION RATE(Performed 12/21/2021) Performed for Rheumatoid arthritis involving multiple sites with positive rheumatoid factor (HCC), Medication monitoring encounter * COMPREHENSIVE METABOLIC PANEL(Performed 12/21/2021) Performed for Rheumatoid arthritis involving multiple sites with positive rheumatoid factor (HCC), Medication monitoring encounter * C-REACTIVE PROTEIN(Performed 08/16/2021) * CBC W AUTO DIFFERENTIAL(Performed 08/16/2021) * ERYTHROCYTE SEDIMENTATION RATE(Performed 08/16/2021) * COMPREHENSIVE METABOLIC PANEL(Performed 08/16/2021) * C-REACTIVE PROTEIN(Performed 02/08/2021) * CBC W AUTO DIFFERENTIAL(Performed 02/08/2021) * ERYTHROCYTE SEDIMENTATION RATE(Performed 02/08/2021) * COMPREHENSIVE METABOLIC PANEL(Performed 02/08/2021) * C-REACTIVE PROTEIN(Performed 01/29/2020) * CBC W AUTO DIFFERENTIAL(Performed 01/29/2020) * ERYTHROCYTE SEDIMENTATION RATE(Performed 01/29/2020) * COMPREHENSIVE METABOLIC PANEL(Performed 01/29/2020) * C-REACTIVE PROTEIN(Performed 09/15/2019) * CBC W AUTO DIFFERENTIAL(Performed 09/15/2019) * ERYTHROCYTE SEDIMENTATION RATE(Performed 09/15/2019) * COMPREHENSIVE METABOLIC PANEL(Performed 09/15/2019) * C-REACTIVE PROTEIN(Performed 05/16/2019) * CBC W AUTO DIFFERENTIAL(Performed 05/16/2019) * ERYTHROCYTE SEDIMENTATION RATE(Performed 05/16/2019) * COMPREHENSIVE METABOLIC PANEL(Performed 05/16/2019) * COMPREHENSIVE METABOLIC PANEL(Performed 11/29/2018) Performed for Rheumatoid arthritis involving multiple sites with positive rheumatoid factor (HCC) * CBC W AUTO DIFFERENTIAL(Performed 11/29/2018) Performed for Rheumatoid arthritis involving multiple sites with positive rheumatoid factor (HCC) * COMPREHENSIVE METABOLIC PANEL(Performed 06/03/2018) Performed for Rheumatoid arthritis involving multiple sites with positive rheumatoid factor (HCC) * CBC W AUTO DIFFERENTIAL(Performed 06/03/2018) Performed for Rheumatoid arthritis involving multiple sites with positive rheumatoid factor (HCC) * CBC W AUTO DIFFERENTIAL(Performed 03/04/2018) * COMPREHENSIVE METABOLIC PANEL(Performed 03/04/2018) * COMPREHENSIVE METABOLIC PANEL(Performed 09/07/2017) Performed for Rheumatoid arthritis involving multiple sites with positive rheumatoid factor (HCC) * CBC W AUTO DIFFERENTIAL(Performed 09/07/2017) Performed for Rheumatoid arthritis involving multiple sites with positive rheumatoid factor (HCC) * COMPREHENSIVE METABOLIC PANEL(Performed 05/23/2017) Performed for Rheumatoid arthritis involving multiple sites with positive rheumatoid factor (HCC) * CBC W AUTO DIFFERENTIAL(Performed 05/23/2017) Performed for Rheumatoid arthritis involving multiple sites with positive rheumatoid factor (HCC) * CBC W AUTO DIFFERENTIAL(Performed 03/28/2017) * COMPREHENSIVE METABOLIC PANEL(Performed 02/23/2017) Performed for Rheumatoid arthritis involving multiple sites with positive rheumatoid factor (HCC) * CBC W AUTO DIFFERENTIAL(Performed 02/23/2017) Performed for Rheumatoid arthritis involving multiple sites with positive rheumatoid factor (HCC) * COMPREHENSIVE METABOLIC PANEL(Performed 11/24/2016) Performed for Rheumatoid arthritis involving multiple sites with positive rheumatoid factor (HCC) * CBC W AUTO DIFFERENTIAL(Performed 11/24/2016) Performed for Rheumatoid arthritis involving multiple sites with positive rheumatoid factor (HCC) * CBC W AUTO DIFFERENTIAL(Performed 08/21/2016) * COMPREHENSIVE METABOLIC PANEL(Performed 08/21/2016) * CBC W AUTO DIFFERENTIAL(Performed 04/05/2016) * COMPREHENSIVE METABOLIC PANEL(Performed 04/05/2016) * HEPATIC FUNCTION PANEL(Performed 11/23/2015) Performed for Rheumatoid arthritis involving multiple sites with positive rheumatoid factor (HCC) * CBC W AUTO DIFFERENTIAL(Performed 11/23/2015) Performed for Rheumatoid arthritis involving multiple sites with positive rheumatoid factor (HCC) * BASIC METABOLIC PANEL (CALCIUM TOTAL)(Performed 10/04/2015) * CBC W AUTO DIFFERENTIAL(Performed 08/26/2015) * COMPREHENSIVE METABOLIC PANEL(Performed 08/26/2015) * HEPATITIS SCREEN ACUTE W/ REFLX CONFIRM(Performed 04/27/2015) * ERYTHROCYTE SEDIMENTATION RATE(Performed 04/27/2015) Performed for Rheumatoid arthritis involving multiple sites with positive rheumatoid factor (HCC), Malaise and fatigue * C-REACTIVE PROTEIN(Performed 04/27/2015) Performed for Rheumatoid arthritis involving multiple sites with positive rheumatoid factor (HCC), Malaise and fatigue * CBC W AUTO DIFFERENTIAL(Performed 04/27/2015) Performed for Rheumatoid arthritis involving multiple sites with positive rheumatoid factor (HCC), Malaise and fatigue * COMPREHENSIVE METABOLIC PANEL(Performed 04/27/2015) Performed for Rheumatoid arthritis involving multiple sites with positive rheumatoid factor (HCC), Malaise and fatigue * GROSS + MICRO EXAM(Performed 04/02/2007) Results * C-REACTIVE PROTEIN (02/28/2023 7:08 AM TELEPHONE INTERVIEWER) Only the most recent of10 resultswithin the time period is included. Pathologist [facility] C-Reactive Protein 3.3 <8.0 mg/L [facility] Comment: REPORT COMMENT: FASTING:YES Test Performed at: [facility] [place] [address] [place]OR[place] CHAU MD 02/28/2023 7:08 AM TELEPHONE INTERVIEWER 02/28/2023 7:11 AM TELEPHONE INTERVIEWER Evangelina Coe MD LAB - CHEMISTRY ARMAND LOPEZ [facility] [address] [place] [address] * ERYTHROCYTE SEDIMENTATION RATE (02/28/2023 7:08 AM TELEPHONE INTERVIEWER) Only the most recent of10 resultswithin the time period is included. Pathologist [facility] Erythrocyte Sedimentation Rate Westergren 11 < OR = 30 mm/h [facility] Comment: Test Performed at: [place] [address] [place]OR[place] CHAU MD 02/28/2023 7:08 AM TELEPHONE INTERVIEWER 02/28/2023 7:11 AM TELEPHONE INTERVIEWER Evangelina Coe MD LAB - HEMATOLOGY ORD ERABLES Performing Organization Address [facility] Co de Phone Number [facility] [address] [place] [phone] * CBC WITH DIFFERENTIAL (02/28/2023 7:08 AM TELEPHONE INTERVIEWER) Only the most recent of22 resultswithin the time period is included. White Blood Cell Count 5.2 3.8 - 10.8 Thousand/u L [facility] RBC 4.34 3.80 - 5.10 Million/uL [facility] Hemoglobin 11.9 11.7 - 15.5 g/dL [facility] Hematocrit 36.5 35.0 - 45.0 % [facility] MCV 84.1 80.0 - 100.0 fL [facility] MCH 27.4 27.0 - 33.0 pg [facility] MCHC 32.6 32.0 - 36.0 g/dL [facility] RDW 14.8 11.0 - 15.0 % [facility] Platelet Count 245 140 - 400 Thousand/u L [facility] MPV 11.4 7.5 - 12.5 fL [facility] Neutrophil Absolute 2673 1500 - 7800 cells/uL [facility] Lymphocytes Absolute 1742 850 - 3900 cells/uL [facility] Absolute Monocytes 504 200 - 950 cells/uL [facility] Eosinophils Absolute 250 15 - 500 cells/uL [facility] Basophils Absolute 31 0 - 200 cells/uL [facility] Granulocytes % 51.4 % [facility] Lymphocytes % 33.5 % [facility] Monocytes % 9.7 % [facility] Eosinophils % 4.8 % [facility] Basophils % 0.6 % [facility] Comment: Test Performed at: [facility] [address] [facility] [address] [place]OR[place] CHAU MD 02/28/2023 7:08 AM TELEPHONE INTERVIEWER 02/28/2023 7:11 AM TELEPHONE INTERVIEWER Evangelina Coe MD LAB - HEMATOLOGY ORD ERABLES Performing Organization Address [facility] Co de Phone Number [facility] [address] [place] [phone] * (ABNORMAL) COMPREHENSIVE METABOLIC PANEL (02/28/2023 7:08 AM TELEPHONE INTERVIEWER) Only the most recent of20 resultswithin the time period is included. Pathologist [facility] Glucose 105(H) 65 - 99 mg/dL [facility] Comment: Fasting reference interval For someone without known diabetes, a glucose value between 100 and 125 mg/dL is consistent with prediabetes and should be confirmed with a follow-up test. BUN 19 7 - 25 mg/dL [facility] Creatinine 1.27(H) 0.60 - 0.95 mg/dL [facility] eGFR by Cystatin C 42(L) > OR = 60 mL/min/1.7 3m2 [facility] BUN/Creatinine Ratio 15 6 - 22 (calc) [facility] Sodium 141 135 - 146 mmol/L [facility] Potassium 4.7 3.5 - 5.3 mmol/L [facility] Chloride 106 98 - 110 mmol/L [facility] CO2 26 20 - 32 mmol/L [facility] Calcium 9.6 8.6 - 10.4 mg/dL [facility] Protein Total 6.5 6.1 - 8.1 g/dL [facility] Albumin 3.8 3.6 - 5.1 g/dL [facility] Globulin Total 2.7 1.9 - 3.7 g/dL (calc) [facility] Albumin/Globulin Ratio 1.4 1.0 - 2.5 (calc) [facility] Bilirubin Total 0.4 0.2 - 1.2 mg/dL [facility] Alkaline Phosphatase 147 37 - 153 U/L [facility] AST 19 10 - 35 U/L [facility] ALT 15 6 - 29 U/L [facility] Comment: Test Performed at: [facility] [address] [place] [address] [place]OR[place] CHAU MD 02/28/2023 7:08 AM TELEPHONE INTERVIEWER 02/28/2023 7:11 AM TELEPHONE INTERVIEWER Evangelina Coe MD LAB - CHEMISTRY ARMAND LOPEZ [facility] Organization Address City/State/ZIP Co de Phone Number [facility] [address] [place] [address] * HEPATITIS SCREEN ACUTE (03/30/2022 7:39 AM TELEPHONE INTERVIEWER) [facility] Hepatitis A Virus Antibody IgM NON-REACTI VE NON-REACT JIM [facility] Comment: For additional information, please refer to http://education.[employer]/faq/JVK314 (This link is being provided for informational/ educational purposes only.) Hepatitis B Virus Surface Antigen NON-REACTI VE NON-REACT JIM [facility] Hepatitis B Core Virus Antibody IgM NON-REACTI VE NON-REACT JIM [facility] Hepatitis C Antibody NON-REACTI VE NON-REACT JIM [facility] Signal to Cut-Off 0.04 <1.00 [facility] Comment: HCV antibody was non-reactive. There is no laboratory evidence of HCV infection. In most cases, no further action is required. However, if recent HCV exposure is suspected, a test for HCV RNA (test code 70313) is suggested. For additional information please refer to http://education.SpiceCSM/faq/MCF86k9 (This link is being provided for informational/ educational purposes only.) Test Performed at: [facility] [address] [place] [address] FLOR[place] CHAU MD 03/30/2022 7:39 AM TELEPHONE INTERVIEWER 03/30/2022 7:39 AM TELEPHONE INTERVIEWER Evangelina Coe MD [facility] Organization Address City/State/ZIP Co de Phone Number [facility] [address] [place] [phone] * HEPATIC FUNCTION PANEL (11/23/2015 1:45 PM CDT) Protein Total 6.8 6.1 - 8.1 g/dL [facility] Albumin 4.0 3.6 - 5.1 g/dL [facility] Globulin Total 2.8 1.9 - 3.7 g/dL (calc) [facility] Albumin/Globulin Ratio 1.4 1.0 - 2.5 (calc) [facility] Bilirubin Total 0.4 0.2 - 1.2 mg/dL [facility] Bilirubin Direct 0.1 < OR = 0.2 mg/dL [facility] Bilirubin Indirect 0.3 0.2 - 1.2 mg/dL (calc) [facility] Alkaline Phosphatase 70 33 - 130 U/L [facility] AST 25 10 - 35 U/L [facility] ALT 19 6 - 29 U/L [facility] Comment: Test Performed at: [facility] [address] [place] [address] GERHARD MEIER DO,MPH Blood specimen (specimen) BLOOD SPECIMEN / Unknown 11/23/2015 1:45 PM CDT 11/23/2015 1:46 PM CDT Evangelina Coe MD LAB - CHEMISTRY ARMAND LOPEZ Performing Organization Address [facility] Co de Phone Number [facility] [address] [place] [address] * (ABNORMAL) BASIC METABOLIC PANEL (CALCIUM TOTAL) (10/04/2015 8:04 AM CDT) Pathologist [facility] Glucose 99 65 - 99 mg/dL [facility] Comment: Fasting reference interval BUN 15 7 - 25 mg/dL [facility] Creatinine 1.21(H) 0.60 - 0.93 mg/dL [facility] Comment: For patients >49 years of age, the reference limit for Creatinine is approximately 13% higher for people identified as -Ugandan. eGFR by MDRD 43(L) > OR = 60 mL/min/1. 73m2 [facility] eGFR by MDRD 50(L) > OR = 60 mL/min/1. 73m2 [facility] BUN/Creatinine Ratio 12 6 - 22 (calc) [facility] Sodium 139 135 - 146 mmol/L [facility] Potassium 4.3 3.5 - 5.3 mmol/L [facility] Chloride 106 98 - 110 mmol/L [facility] CO2 25 20 - 31 mmol/L [facility] Calcium 9.5 8.6 - 10.4 mg/dL [facility] Comment: REPORT COMMENT: FASTING:NO Test Performed at: [facility] [address] GERHARD MEIER DO,MPH 10/04/2015 8:04 AM CDT 10/04/2015 8:05 AM CDT Evangelina Coe MD LAB - CHEMISTRY ARMAND LOPEZ Performing Organization Address [facility] Co de Phone Number [facility] [address] [place] [address] * HEPATITIS SCREEN ACUTE W/ REFLX CONFIRM (04/27/2015 1:40 PM TELEPHONE INTERVIEWER) Pathologist [facility] Hepatitis A Virus Antibody IgM NON-REACTI VE NON-REACT JIM [facility] Comment: Test Performed at: [facility] [address] GERHARD MEIER DO,MPH Hepatitis B Virus Surface Antigen NON-REACTI VE NON-REACT JIM [facility] Hepatitis B Core Virus Antibody IgM NON-REACTI VE NON-REACT JIM [facility] Hepatitis C Antibody NON-REACTI VE NON-REACT JIM [facility] Signal to Cut-Off 0.02 <1.00 [facility] Comment: REPORT COMMENT: FASTING:NO 04/27/2015 1:40 PM TELEPHONE INTERVIEWER 04/27/2015 1:55 PM TELEPHONE INTERVIEWER Evangelina Coe MD LAB - CHEMISTRY ARMAND LOPEZ [facility] [address] [place] [address] * GROSS + MICRO EXAM (04/02/2007 3:06 PM TELEPHONE INTERVIEWER) Result CASE NUMBER [id number] Comment: ORDERING PHYSICIAN AUGIE JOE SPECIMEN TYPE Tissue-aortic valve Surgeon DR. AUGIE JOE Gross Exam JESSICA NEW Gross Report COPY TO INDICATION FOR PROCEDURE OPERATION AORTIC VALVE REPLACEMENT GROSS THE SPECIMEN IS RECEIVED IN ONE CONTAINER LABELED WITH THE PATIENT'S NAME AND AORTIC VALVE TISSUE . THE SPECIMEN IS RECEIVED IN FORMALIN AND CONSISTS OF A 3 X 3 X 2 CM. AGGREGATE OF MULTIPLE GRITTY CALCIFIED YELLOW, KNOWLES FRAGMENTS OF TISSUE, GROSSLY RESEMBLING SEMILUNAR VALVE. AREAS OF THICKENING MEASURING UP TO 1 CM. IS SEEN ON THE CUT SURFACES. A LIEUTENANT SHIFT SUPERVISOR PORTION OF THE SPECIMEN IS SUBMITTED IN A SINGLE CASSETTE FOLLOWING DECALCIFICATION. 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 A FOCUS OF CHRONIC INFLAMMATION COMPOSED OF LYMPHOCYTES AND PLASMA CELLS ARE ALSO NOTED. 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 JW/CS Released By ARGENIS MCCRACKEN CPT Code 31561 MISCELLANEOUS SAMPLES / Unknown 04/02/2007 3:06 PM TELEPHONE INTERVIEWER 04/02/2007 3:07 PM TELEPHONE INTERVIEWER Historical Provider LAB - PATHOLOGY/C YTOLOGY ORDERABLES Care Teams Armature Tester Relationship Specialty Start Date End Date Esdras Donovan MD [address] [place] [address] PCP - General Family Medicine 08/28/16 [place] [address] [address] [facility] [address] [place] [address] Consulting Physician Internal Medicine 04/27/15 Juan Miguel Monique MD [address] [place] [address] Ophthalmology 09/13/15
--- OUTSIDE RECORDS SUMMARY | 2024-04-14 13:22 | XMS_ITS | Encounter Summary ---
Author Organization [facility] Address [address] [place], [place] [address] [place] [address] Phone Care Team Providers Care Hospice Art Therapist Name Role Phone Esdras Donovan MD Primary Care Provider [phone] Murray Saab MD Unavailable Unavailabl e Geronimo Coe MD Unavailable [phone] Ravi Tanner PAC Unavailable [phone] Reason for Visit * Reason Comments Medication Refill Encounter Details Date Type Department Care Team (Late st Contact Info) Description 01/04/2021 Refill [facility] - Family Medicine [facility] [address] [place] [address] Esdras Donovan MD [address] [address] Medication Refill Social History Tobacco Use Types Packs/Day Years Used Date Smoking Tobacco: Never Smokeless Tobacco: Never Alcohol Use Standard Drinks/Week Comments No 0 (1 standard drink = 0.6 oz pur e alcohol) PHQ-2 Answer Date Recorded PHQ-2 Score 0 11/09/2018 Sexually Active Control Partners Comments Not Currently Comments No Sex and Gender Information Value Date Recorded Sex Assigned at Not on file Legal Sex Female 9:52 PM CDT Gender Identity Not on file Sexual Orientation Not on file COVID-19 Exposure Response Date Recorded In the last month, have you been in contact with someone who was confirmed or suspected to have Coronavirus / COVID-19? No / Unsure 12/31/2020 8:26 AM CDT documented as of this encounter Plan of Treatment Upcoming Encounters Date Type Department Care Team (Late st Contact Info) Description 04/22/2024 1:00 PM FARM EQUIPMENT TECHNICIAN Office Visit [facility] - Family Medicine [facility] [address] [place] [address] Esdras Donovan MD [address] [address] documented as of this encounter Visit Diagnoses Not on filedocumented in this encounter Additional Health Concerns Assessment Noted Time PHQ-9 Depression Total Score: 0 04/02/19 8:40 AM FARM EQUIPMENT TECHNICIAN documented as of this encounter Care Teams Hospice Art Therapist Relationship Specialty Start Date End Date Esdras Donovan MD [address] [address] PCP - General Family Medicine 09/06/16 Murray Saab MD [address] [place] [address] Pain Medicine-Pain Management 09/06/16 Geronimo Coe MD [address] [address] Rheumatology 09/06/16 Ravi Tanner PAC [address] [facility] [place] [address] Physician House Servant Physician House Servant 12/20/23 documented as of this encounter
--- OUTSIDE RECORDS SUMMARY | 2024-04-14 13:22 | XMS_ITS | Encounter Summary ---
Author Organization [facility] Health Address [address] [place] [address] Care Team Providers Care Derrick Man Name Role Phone Unknown, Provider Primary Care Provider Unavaila Evangelina Lin MD Unavailable Esdras Donovan MD Primary Care Provider [phone] Juan Miguel Monique MD Unavailable [phone] Esdras Donovan MD Primary Care Provider [phone] Encounter Details Date Type Department Care Team (Late st Contact Info) Description 11/25/2014 [facility] [address] [place] [address] [place] [address] [facility] [address] [address] Social History Tobacco Use Types Packs/Day Years Used Date Smoking Tobacco: Never Assessed Sex and Gender Information Value Date Recorded Sex Assigned at Not on file Gender Identity Not on file Sexual Orientation Not on file documented as of this encounter Plan of Treatment Upcoming Encounters Date Type Department Care Team (Late Contact Info) Description 04/29/2024 10:00 AM REMOTE SENSING SPECIALIST Office Visit [facility] - Rheumatology [id number] [place] [address] [place] [address] [address] documented as of this encounter Visit Diagnoses Not on filedocumented in this encounter Care Teams Derrick Man Relationship Specialty Start Date End Date Unknown, Provider PCP - General 04/27/15 04/29/15 [place] [address] [place] [address] PCP - General Family Medicine 05/04/15 08/27/16 Esdras Donovan MD [address] [place] [place] [address] PCP - General Family Medicine 08/28/16 [place] [address] [place] [id number] Consulting Physician Internal Medicine 04/27/15 Juan Miguel Monique MD [address] [place] [place] [address] Ophthalmology 09/13/15 documented as of this encounter
--- OUTSIDE RECORDS SUMMARY | 2024-04-14 13:22 | XMS_ITS | Encounter Summary ---
Author Organization [facility] Health Address [address] [place] [address] Care Team Providers Care Small Craft Operator Name Role Phone Evangelina Coe MD Unavailable Juan Miguel Monique MD Unavailable [phone] Esdras Donovan MD Primary Care Provider [phone] Encounter Details Date Type Department Care Team ([facility] Contact Info) Description 07/02/2017 [facility] Outpatient Visit [facility] [address] [place] [address] [place] [address] [address] Social History Tobacco Use Types Packs/Day Years Used Date Smoking Tobacco: Former Cigarettes Q uit: 04/26/2005 Smokeless Tobacco: Never Alcohol Use Standard Drinks/Week Comments No 0 (1 standard drink = 0.6 oz pur e alcohol) Sex and Gender Information Value Date Recorded Sex Assigned at Not on file Gender Identity Not on file Sexual Orientation Not on file documented as of this encounter Plan of Treatment Upcoming Encounters Date Type Department Care Team ([facility] Contact Info) Description 04/29/2024 10:00 AM MIRROR FABRICATION SUPERVISOR Office Visit [facility] - Rheumatology [id number] [place] [address] [place] [address] [place] [address] [facility] [address] [place] [address] documented as of this encounter Visit Diagnoses Not on filedocumented in this encounter Care Teams Small Craft Operator Relationship Specialty Start Date End Date Esdras Donovan MD [address] [place] [place] [address] PCP - General Family Medicine 08/28/16 [place] [address] [place] [address] Consulting Physician Internal Medicine 04/27/15 Juan Miguel Monique MD [address] [place] [place] [address] Ophthalmology 09/13/15 documented as of this encounter
--- OUTSIDE RECORDS SUMMARY | 2024-04-14 13:22 | XMS_ITS | Encounter Summary ---
Author Organization [facility] Address [address] [place], [place] [address] [place] [address] Phone Care Team Providers Care Natural Gas Engineer Name Role Phone Esdras Donovan MD Primary Care Provider Murray Saab MD Unavailable Unavailabl e Geronimo Coe MD Unavailable [phone] Ravi Tanner PAC Unavailable [phone] Reason for Visit * Reason Comments Medication Refill Encounter Details Date Type Department Care Team (Late st Contact Info) Description 03/13/2021 [facility]ill [facility] [address] [place] [address] Esdras Donovan MD [address] [address] Medication Refill Social History Tobacco Use Types [...] on file documented as of this encounter Miscellaneous Notes * Telephone Encounter - Jayna Amezcua RN - 03/14/2021 11:03 AM CST Medication failed the protocol, provider to review and approve the medication order if appropriate. Requested Prescriptions Pending Prescriptions Disp Refills vitamin b-12 (CYANOCOBALAMIN) 500 MCG Tablet [Pharmacy Med Name: VITAMIN B-12 TABS 500MCG] 90 Tablet 3 Sig: TAKE 1 TABLET DAILY Not Delegated - Off Protocol Failed - 03/13/2021 11:23 PM Failed - This refill cannot be delegated Passed - Visit with relevant provider in past 12 months or upcoming 90 days Recent Visits Date Type Provider Dept 12/31/20 Office Visit Esdras Donovan MD [facility] 09/30/20 Office Visit Jono Maynard APRN, CNP [facility] 04/02/20 Office Visit Jono Maynard APRN, HENNY [facility] Showing recent visits within past 365 days and meeting all other requirements Future Appointments No visits were found meeting these conditions. Showing future appointments within next 90 days and meeting all other requirements BASE MARKETING ANALYST documented in this encounter Plan of Treatment Upcoming Encounters Date Type Department Care Team (Late st Contact Info) Description 04/22/2024 1:00 PM DATABASE MARKETING ANALYST Office Visit [facility] - Family Medicine - [place] [address] [place] [address] Esdras Donovan MD [address] [address] documented as of this encounter Visit Diagnoses Not on filedocumented in this encounter Additional Health Concerns Assessment Noted Time PHQ-9 Depression Total Score: 0 04/02/19 20 8:40 AM DATABASE MARKETING ANALYST documented as of this encounter Care Teams Natural Gas Engineer Relationship Specialty Start Date End Date Esdras Donovan MD [address] [address] PCP - General Family Medicine 09/06/16 Murray Saab MD #[address] [address] Pain Medicine-Pain Management 09/06/16 Geronimo Coe MD #[address] [address] Rheumatology 09/06/16 Ravi Tanner PAC [address] [place] [address] Physician Manufacturing Team Member Physician Manufacturing Team Member 12/20/23 documented as of this encounter
--- OUTSIDE RECORDS SUMMARY | 2024-04-14 13:23 | XMS_ITS | Encounter Summary ---
Author Organization [facility] Address [address] [facility] [place] [address] Phone Care Team Providers Care Exhibit Builder Name Role Phone Esdras Donovan MD Primary Care Provider Murray Saab MD Unavailable Unavailabl e Geronimo Coe MD Unavailable [phone] Ravi Tanner PAC Unavailable [phone] Reason for Visit * Reason Comments Medication Refill Encounter Details Date Type Department Care Team (Late st Contact Info) Description 09/17/2022 Refill [facility] [address] [place] [address] Esdras Donovan MD [address] [address] Medication Refill Social History Tobacco Use Types Packs/Day Years Used Date Smoking Tobacco: Never Smokeless Tobacco: Never Alcohol Use Standard Drinks/Week Comments No 0 (1 standard drink = 0.6 oz pur e alcohol) PHQ-2 Answer Date Recorded Total Score - Questions 1-9 0 08/27 Education Answer Date Recorded What is the highest level of school you have completed or the highest degree you have received? 12th grade 07/26/2022 Sexually Active Control Partners Comments Not Currently Comments No Sex and Gender Information Value Date Recorded Sex Assigned at Not on file Legal Sex Female 9:52 PM CDT Gender Identity Not on file Sexual Orientation Not on file documented as of this encounter Miscellaneous Notes * Telephone Encounter - Sehr, Laura L, RN - 09/18/2022 11:40 AM CDT Medication failed the protocol, provider to review and approve the medication order if appropriate. Requested Prescriptions Pending Prescriptions Disp Refills hydroCHLOROthiazide 25 MG Tablet [Pharmacy Med Name: HYDROCHLOROTHIAZIDE TABS 25MG] 90 Tablet 3 Sig: TAKE 1 TABLET DAILY Diuretics Protocol Failed - 09/17/2022 11:22 PM Failed - Serum potassium on record in past 12 months No results found for: POTASSIUM, POCTK Failed - Serum sodium on record in past 12 months No results found for: SODIUM Failed - GFR on record in past 12 months No results found for: GFRNA Passed - Blood pressure on record in past 12 months Clinician-entered: BP Readings from Last 3 Encounters: 07/26/22 136/54 03/23/22 138/82 01/09/22 146/86 Patient-entered: No data recorded Passed - Visit with relevant provider in past 12 months or upcoming 90 days Recent Visits Date Type Provider Dept 07/26/22 Office Visit [facility] 03/23/22 Office Visit [facility]as [facility] MD [facility] 01/09/22 Office Visit Jono Maynard APRN, CNP [facility] 12/22/21 Office Visit Jono Maynard APRN, HENNY [facility] Showing recent visits within past 365 days and meeting all other requirements Future Appointments No visits were found meeting these conditions. Showing future appointments within next 90 days and meeting all other requirements documented in this encounter Plan of Treatment Upcoming Encounters Date Type Department Care Team (Late st Contact Info) Description 04/22/2024 1:00 PM EMERGENCY ROOM TECH Office Visit [facility] - Family Medicine - [place] [address] [place] [address] Esdras Donovan MD [address] [address] documented as of this encounter Visit Diagnoses Not on filedocumented in this encounter Additional Health Concerns Assessment Noted Time PHQ-9 Depression Total Score: 0 04/02/19 20 8:40 AM EMERGENCY ROOM TECH documented as of this encounter Care Teams Exhibit Builder Relationship Specialty Start Date End Date Esdras Donovan MD [address] [address] PCP - General Family Medicine 09/06/16 Murray Saab MD #[address] [address] Pain Medicine-Pain Management 09/06/16 Geronimo Coe MD #[address] [address] Rheumatology 09/06/16 Ravi Tanner PAC [address] [place] [address] Physician Grinder Operator External Tool Physician Grinder Operator External Tool 12/20/23 documented as of this encounter
--- OUTSIDE RECORDS SUMMARY | 2024-04-14 13:23 | XMS_ITS | Clinical Summary ---
Author Organization [facility] Address [address] [place] [address] Care Team Providers Care Mold Making Supervisor Name Role Phone Evangelina Coe MD Unavailable Juan Miguel Monique MD Unavailable [phone] Esdras Donovan MD Primary Care Provider [phone] Source Comments [facility],non-owned Affiliates and Associated Physician Practices is amultiple site organization consisting of ambulatory clinics and hospital sitesin [place], [place], [place] and [place]. This disclosure is being madepursuant to the Care Everywhere program and may not contain all information available regarding this patient. Last updated 17.[facility] Allergies No known active allergies Medications * Be aware that medications may not be up to date on this document. Alwaysverify current medications with the patient. Medication Sig Dispensed Refills Start Date End Date Status hydroCHLOROthiazid e (HYDRODIURIL) 25 MG tabletIndications: Rheumatoid arthritis involving multiple sites with positive rheumatoid factor (HCC) Take 1 (one) tablet by mouth once daily 10/08/2017 Active aspirin EC (ECOTRIN) 81 MG tablet Take 1 (one) tablet by mouth once daily Active vitamin D, cholecalciferol, 2000 units tablet Take 0.5 (one-half) tablet by mouth once daily Active fluticasone propionate (FLONASE) 50 MCG/ACT nasal spray [place] 2 sprays into each nostril once daily 1 bottles 12/09/2018 Active D 1000 25 MCG (1000 UT) capsule Take 1 (one) capsule by mouth once daily 03/22/2019 Active cyanocobalamin (VITAMIN B-12) 500 MCG tablet 09/19/2019 Active predniSONE (Deltasone) 10 MG tablet 1 tab po qday for 10 days 10 tablet 03/02/2022 Active Additional Information Patient not taking.Reported on 12/20/2023 gabapentin (Neurontin) 100 MG capsule Take 1 (one) capsule by mouth 07/06/2022 Active traMADol (Ultram) 50 MG tablet Take 1 (one) tablet by mouth every 6 hours as needed 07/06/2022 Active hydroxychloroquine (Plaquenil) 200 MG tablet Take 1 (one) tablet by mouth 2 times daily 180 tablet 03/27/2023 Active albuterol HFA (Proventil; Ventolin; Proair) 108 (90 Base) MCG/ACT inhaler Inhale 2 (two) puffs by mouth every 6 hours as needed 08/11/2023 Active carvedilol (Coreg) 3.125 MG tablet Take 1 (one) tablet by mouth 2 times daily 05/18/2023 Active empagliflozin (Jardiance) 10 MG tablet Take 1 (one) tablet by mouth once daily 05/18/2023 Active furosemide (Lasix) 40 MG tablet Take 1 (one) tablet by mouth once daily 05/18/2023 Active pantoprazole EC (Protonix) 40 MG tablet Take 1 (one) tablet by mouth once daily 05/18/2023 Active sacubitril-valsart an (Entresto) 24-26 MG tablet Take 1 (one) tablet by mouth every morning 05/18/2023 Active predniSONE (Deltasone) 10 MG tablet 1 tab po q day as needed 60 tablet 1 10/09/2023 Active Additional Information Patient not taking.Reported on 12/20/2023 leflunomide (Arava) 20 MG tablet Take 1 (one) tablet by mouth once daily 90 tablet 10/12/2023 Active leflunomide (Arava) 20 MG tablet Take 1 (one) tablet by mouth once daily 90 tablet 12/20/2023 Active Active Problems Problem Noted Date Diagnosed Date B12 deficiency 09/20/2018 Rheumatoid arthritis with positive rheumatoid fa ctor 10/11/2017 High blood pressure 06/14/2017 Vitamin D insufficiency 05/27/2017 Chronic pain disorder 09/06/2016 Sciatica 09/06/2016 Rheumatoid arthritis involvi ng multiple sites with positive rheumatoid factor 04/27/2015 Aortic valve disorder 07/12/2013 Overview (10/11/2017): Overview: AORTIC VALVE DISORDER Chronic rhinitis 07/12/2013 Overview (10/11/2017): Overview: CHRONIC RHINITIS Hyperlipidemia 07/12/2013 Overview (10/11/2017): Overview: HYPERLIPIDEMIA NEC/NOS Immunizations Name Administration Dates Next Due INFLUENZA VACCINE, TRIV. (AF LURIA, FLUZONE TRIVALENT; 6MO+) (IIV3) 11/27/2011,11/25/2010,12/11/2008 PNEUMOCOCCAL PPSV23 11/27/2011 TD (ADULT), 5 LF TETANUS TOX OID, ADSORBED, PF 10/04/2012 TD (AGE 6-ADULT) 10/04/2012 Td (Adult), 2 Lf Tetanus Tox oid, Adsorbed, Pf 10/04/2012 Family History Medical History Relation Name Comments Negative Family History Other for RA, Systmeic Lupus Erythematosus Relation Name Status Comments Other Social History Tobacco Use Types Packs/Day Years [...] 36.2 C (97.2 F) 03/01/2021 8:51 AM PHARMACY ACCOUNT DIRECTOR Respiratory Rate 18 12/20/2023 10:49 AM CDT Oxygen Saturation 98% 12/20/2023 10:49 AM CDT Inhaled Oxygen Concentration - - Weight 57 kg (125 lb 9.6 oz) 12/20/2023 10:49 AM CDT Height 157.5 cm (5' 2 ) 12/20/2023 10:49 AM CDT Body Mass Index 22.97 12/20/2023 10:49 AM CDT Plan of Treatment Upcoming Encounters Date Type Department Care Team (Late st Contact Info) Description 04/29/2024 10:00 AM PHARMACY ACCOUNT DIRECTOR Office Visit [facility] - Rheumatology [address] [facility] [facility] [address] [place] [address] [place] [address] [facility] [address] [place] [address] Health Maintenance Due Date Last Done Comments BONE DENSITY TESTING 1940 MEDICARE AWV 12 MONTHS 1940 ZOSTER VACCINE (1 of 2) 05/30/1989 PNEUMOCOCCAL VACCINE 50+ (2 of 2 - PCV) 11/26/2012 11/27/2011 Respiratory Syncytial Virus (RSV) Vaccine Pt: or over 60 yrs (1 - 1-dose 75+ series) 05/30/2014 DTAP/TDAP/TD VACCINES (4 - T d or Tdap) 10/04/2022 10/04/2012, 10/04/2012, 10/04/2012 COVID-19 VACCINE (2023-2 5 season) 2023 INFLUENZA VACCINE (#1) 2023 2, 11/25/2010, 12/11/2008 DEPRESSION SCREENING 02/27/2024 10/09/2023 HEPATITIS B VACCINE Aged Out No longe r eligible based on patient's age to complete this topic HIB VACCINE Aged Out No longer eligi ble based on patient's age to complete this topic HPV VACCINE Aged Out No longer eligi ble based on patient's age to complete this topic MENINGOCOCCAL (Group B) VACCINE Aged Out No longer eligible b ased on patient's age to complete this topic MENINGOCOCCAL VACCINE Aged Out No anjel tia eligible based on patient's age to complete this topic Care Teams Mold Making Supervisor Relationship Specialty Start Date End Date Esdras Donovan MD [address] [place] [place] [address] PCP - General Family Medicine 08/28/16 [place] [address] [address] Consulting Physician Internal Medicine 04/27/15 Juan Miguel Monique MD [address] [place] [address] Ophthalmology 09/13/15
--- OUTSIDE RECORDS SUMMARY | 2024-04-14 13:23 | XMS_ITS | Encounter Summary ---
Author Organization [facility] Healthcare Address [address] [place] [address] Care Team Providers Care Educational Director Name Role Phone Esdras Donovan MD Primary Care Provider [phone] Ajit Rivero MD Unavailable [phone] Antwan Keller MD Unavailable [phone] Slim Corado MD Unavailable Encounter Details Date Type Department Care Team (Late st Contact Info) Description 06/13/2022 Telephone [facility] [address] [place] [address] Ольга Coffey, RT Social History Tobacco Use Types Packs/Day Years Used Date Smoking Tobacco: Former Smokeless Tobacco: Never Alcohol Use Standard Drinks/Week Comments No 0 (1 standard drink = 0.6 oz pur e alcohol) PHQ-2 Answer Date Recorded PHQ-2 Total Score (If total score is 3 or more points, staff should administer the PHQ-9) 0 07/08/2020 Comments No Sex and Gender Information Value Date Recorded Sex Assigned at Not on file Legal Sex Female 6:40 PM FUEL PILOT ENGINEER Gender Identity Not on file Sexual Orientation Not on file documented as of this encounter Plan of Treatment Not on file documented as of this encounter Visit Diagnoses Not on filedocumented in this encounter Additional Health Concerns Infection Onset Date Last Indicated Resolved Time COVID: Suspected 05/05/2023 05/05/2023 05/05/2023 10:15 PM FUEL PILOT ENGINEER documented as of this encounter Care Teams Educational Director Relationship Specialty Start Date End Date Esdras Donovan MD [address] [place] [address] PCP - General 09/05/16 Ajit Rivero MD [address] [facility] [facility] [address] [place] [address] Consulting Physician Cardiovascular Disease 05/18/23 Antwan Keller MD [address] [facility] [facility] [address] [place] [address] Consulting Physician Nephrology 05/18/23 Slim Corado MD [address] [facility] [address] [place] [address] Consulting Physician Pulmonary Disease 05/18/23 documented as of this encounter
--- OUTSIDE RECORDS SUMMARY | 2024-04-14 13:23 | XMS_ITS | Clinical Summary ---
Author Organization [facility] Facility Address [address] [place] [address] Care Team Providers Care Software Design Manager Name Role Phone Esdras Donovan MD MPH Primary Care Provider [phone] Allergies No known active allergies Medications aspirin (ST DENZEL) 81 MG EC tablet Take 81 mg by mouth 1 (one) time each day Active cholecalcifero l (VITAMIN D-3) 25 MCG (1000 UT) tablet Take 1,000 Units by mouth in the morning. 04/06/19 19 Active cyanocobalamin 500 MCG tablet Take 1 tablet by mouth 1 (one) time each day 09/19/19 20 Active fluticasone (FLONASE) 50 MCG/ACT nasal spray Administer 1 spray into affected nostril(s) in the morning. 01/26/20 23 Active furosemide (LASIX) 40 MG tablet Take 40 mg by mouth in the morning. 05/18/19 24 Active gabapentin (NEURONTIN) 100 MG capsule Take 100 mg by mouth in the morning and 100 mg at noon and 100 mg in the evening. 07/07/19 23 Active leflunomide (ARAVA) 20 MG tablet 04/28/19 21 Active carvedilol (COREG) 3.125 MG tablet Take 3.125 mg by mouth in the morning and 3.125 mg in the evening. 05/18/19 24 025 Discontinued (Discontinue d by another clinician (does not appear on AVS)) midodrine (PROAMATINE) 10 MG tablet Take 10 mg by mouth in the morning and 10 mg at noon and 10 mg in the evening. 05/18/19 24 025 Discontinued (Therapy completed) Active Problems Problem Noted Date Diagnosed Date Acute nontraumatic kidney injury 05/09/2023 Serum creatinine above reference range 7 Aortic valve disorder 07/12/2013 Overview (05/30/2023): AORTIC VALVE DISORDER Overview: AORTIC VALVE DISORDER Chronic rhinitis Encounters Date Type Department Care Team Description 04/04/2024 Orders Only [facility]. [address] [facility] [address] [place] [id number] Antwan Keller MD Stage 3b chronic kidney disease (HCC); Hypertension; Anemia in chronic kidney disease; Secondary hyperparathyroidism of renal origin (HCC); Hypertensive chronic kidney disease, unspecified, with chronic kidney disease stage I through stage IV, or unspecified; Type 2 diabetes mellitus with diabetic chronic kidney disease (HCC) 04/02/2024 Orders Only [facility]. [address] [facility] [place] [id number] Antwan Keller MD Stage 3b chronic kidney disease (HCC); Hypertension; Anemia in chronic kidney disease; Secondary hyperparathyroidism of renal origin (HCC); Hypertensive chronic kidney disease, unspecified, with chronic kidney disease stage I through stage IV, or unspecified; Type 2 diabetes mellitus with diabetic chronic kidney disease (HCC) 04/01/2024 1:00 PM FLASK PUSHER Office Visit [facility]. [address] [facility] [place] [phone] Antwan Keller MD Stage 3b chronic kidney disease (HCC) (Primary Dx); Hypertension; Anemia in chronic kidney disease; Secondary hyperparathyroidism of renal origin (HCC); Hypertensive chronic kidney disease, unspecified, with chronic kidney disease stage I through stage IV, or unspecified; Type 2 diabetes mellitus with diabetic chronic kidney disease (HCC) from Last 3 Months Immunizations Name Administration Dates Next Due Influenza, Unspecified 11/27/2011,11/25/2010, Pneumococcal Polysaccharide 11/27/2011 TD Preservative Free 10/04/2012 Td 10/04/2012 Td, Unspecified 10/04/2012 Family History Medical History Relation Comments Heart disease Child Heart disease Father Dementia Mother Relation Status Comments Child Alive pacemaker Father Mother Social History Tobacco Use Types Packs/Day Years Used Date Smoking Tobacco: Former Cigarettes Smokeless Tobacco: Never Tobacco Cessation:Counseling Given: Not Answered Alcohol Use Standard Drinks/Week Comments Not Currently 0 (1 standard drink = 0.6 oz pur e alcohol) Comments Unknown Sex and Gender Information Value Date Recorded Sex Assigned at Not on file Legal Sex Female 11:17 AM EDT Gender Identity Not on file Sexual Orientation Not on file Last Filed Vital Signs Vital Sign Reading Time Taken Comments Blood Pressure 143/71 04/01/2024 12:35 PM FLASK PUSHER Pulse 67 04/01/2024 12:35 PM FLASK PUSHER Temperature 36.7 C (98 F) 04/01/2024 12:35 PM FLASK PUSHER Respiratory Rate - - Oxygen Saturation 97% 04/01/2024 12:35 PM FLASK PUSHER Inhaled Oxygen Concentration - - Weight 60.1 kg (132 lb 8 oz) 04/01/2024 12:35 PM FLASK PUSHER Height 157.5 cm (5' 2 ) 04/01/2024 12:35 PM FLASK PUSHER Body Mass Index 24.23 04/01/2024 12:35 PM FLASK PUSHER Plan of Treatment Upcoming Encounters Date Type Department Care Team (Late st Contact Info) Description 09/23/2024 1:15 PM CDT Office Visit [facility] [address] [facility] [address] [place] [address] Antwan Keller MD [address] [facility] [address] [place] [address] Health Maintenance Due Date Last Done Comments Pneumococcal Vaccine: 65+ Years (2 of 2 - PCV) 11/26/2012 11/27/2011 Influenza Vaccine (#1) 2023 2, 11/25/2010, 12/11/2008 Diabetes: Hemoglobin A1C 04/01/2024 Diabetes: Ophthalmology Exam 04/01/2024 Diabetes: Pedal Pulse Checked 04/01/2024 Diabetes: Sensory Foot Exam 04/01/2024 Diabetes: Visual Foot Exam 04/01/2024 Hepatitis B Vaccine Aged Out No longe r eligible based on patient's age to complete this topic Insurance MEDICARE [facility] MEDICARE Care Teams Software Design Manager Relationship Specialty Start Date End Date Esdras Donovan MD MPH [address] [address] PCP - General Family Medicine 05/14/23
--- OUTSIDE RECORDS SUMMARY | 2024-04-14 13:23 | XMS_ITS | Encounter Summary ---
Author Organization [facility] Address [address] [place] [address] Phone Care Team Providers Care Stone Rubber Name Role Phone Esdras Donovan MD Primary Care Provider Murray Saab MD Unavailable Unavailabl e Geronimo Coe MD Unavailable [phone] Ravi Tanner PAC Unavailable [phone] Reason for Visit * Reason Comments Medication Refill Encounter Details Date Type Department Care Team (Late st Contact Info) Description 09/27/2020 Refill [facility] [address] [place] [address] Esdras Donovan MD [address] [address] Medication Refill Social History Tobacco Use Types [...] have Coronavirus / COVID-19? No / Unsure 09/30/2020 8:01 AM CDT documented as of this encounter Miscellaneous Notes * Telephone Encounter - Jennifer Vickers RN - 09/28/2020 2:55 PM CDT Medication failed the protocol, provider to review and approve the medication order if appropriate. Requested Prescriptions Pending Prescriptions Disp Refills hydroCHLOROthiazide 25 MG Tablet [Pharmacy Med Name: HYDROCHLOROTHIAZIDE TABS 25MG] 90 Tablet 3 Sig: TAKE 1 TABLET DAILY Diuretics Protocol Failed - 09/28/2020 2:55 PM Failed - Serum potassium on record in past 12 months No results found for: POTASSIUM, POCTK Failed - Serum sodium on record in past 12 months No results found for: SODIUM Failed - GFR on record in past 12 months No results found for: GFRNA Passed - Blood pressure on record in past 12 months Clinician-entered: BP Readings from Last 3 Encounters: 04/02/20 128/90 10/01/19 124/70 04/02/19 130/80 Patient-entered: No data recorded Passed - Visit with relevant provider in past 12 months or upcoming 90 days Recent Visits Date Type Provider Dept 04/02/20 Office Visit Jono Maynard APN, [facility] 10/01/19 Office Visit Esdras Donovan MD [facility] Showing recent visits within past 365 days and meeting all other requirements Future Appointments Date Type Provider Dept 09/30/20 Appointment Jono Maynard APN, [facility] Showing future appointments within next 90 days and meeting all other requirements documented in this encounter Plan of Treatment Upcoming Encounters Date Type Department Care Team (Late st Contact Info) Description 04/22/2024 1:00 PM BATTERY WRECKER OPERATOR Office Visit [facility] - Family Medicine - [address] [place] [address] Esdras Donovan MD [id number] [address] documented as of this encounter Visit Diagnoses Not on filedocumented in this encounter Additional Health Concerns Assessment Noted Time PHQ-9 Depression Total Score: 0 04/02/19 20 8:40 AM BATTERY WRECKER OPERATOR documented as of this encounter Care Teams Stone Rubber Relationship Specialty Start Date End Date Esdras Donovan MD [address] [address] PCP - General Family Medicine 09/06/16 Murray Saab MD [address] [address] Pain Medicine-Pain Management 09/06/16 Geronimo Coe MD [address] [address] Rheumatology 09/06/16 Ravi Tanner PAC [address] [place] [address] Physician Plant Biology Professor Physician Plant Biology Professor 12/20/23 documented as of this encounter
--- OUTSIDE RECORDS SUMMARY | 2024-04-14 13:23 | XMS_ITS | Encounter Summary ---
Author Organization [facility] Address [address] [facility] [place] [address] Phone Care Team Providers Care Caustic Pump Operator Name Role Phone Esdras Donovan MD Primary Care Provider Murray Saab MD Unavailable Unavailabl e Geronimo Coe MD Unavailable [phone] aRvi Tanner PAC Unavailable Reason for Visit * Reason Comments Medication Refill Encounter Details Date Type Department Care Team (Late st Contact Info) Description 03/16/2020 Refill [facility] [address] [place] [address] Esdras Donovan MD [address] [address] Medication Refill Social History Tobacco Use Types [...] Telephone Encounter - Laura Rizvi RN - 03/17/2020 11:19 AM CST Medication failed the protocol, provider to review and approve the medication order if appropriate. Requested Prescriptions Pending Prescriptions Disp Refills vitamin b-12 (CYANOCOBALAMIN) 500 MCG Tablet [Pharmacy Med Name: VITAMIN B-12 TABS 500MCG] 90 Tab 3 Sig: TAKE 1 TABLET DAILY Off-Protocol Failed - 03/16/2020 11:18 PM Failed - Medication not assigned to a protocol, review manually. Passed - Valid encounter within last 12 months Past Office Visits Recent Outpatient Visits 5 months ago [facility]lipidemia, unspecified [facility] B12 deficiency [facility] Esdras Blackburn MD 1 year ago Vitamin D insufficiency [facility] Esdras Blackburn MD 1 year ago [facility] D [facility] 2 years [facility] Hyperlipidemia, unspecified hyper[facility] Upcoming Appointments Future Appointments In 2 weeks Jono Maynard APN, HEALTH CARE MARKETING SPECIALIST [facility] Saad [facility] EDI DEVELOPER - Recent and Past Visits Recent Visits Date Type Provider Dept 10/01/19 Office Visit Esdras Donovan MD [facility] 04/02/19 Office Visit Esdras Donovan MD [facility] 12/24/18 Office Visit Esdras Donovan MD [facility] Showing recent visits within past 460 days with a meds authorizing provider and meeting all other requirements Future Appointments Date Type Provider Dept 04/02/20 Appointment Jono Maynard APN, HEALTH CARE MARKETING SPECIALIST [facility] Showing future appointments within next 90 days with a meds authorizing provider and meeting all other requirements OWER DEVELOPMENT MANAGER documented in this encounter Plan of Treatment Upcoming Encounters Date Type Department Care Team (Late st Contact Info) Description 04/22/2024 1:00 PM MANPOWER DEVELOPMENT MANAGER Office Visit [facility] [address] [place] [address] Esdras Donovan MD [address] [address] documented as of this encounter Visit Diagnoses Not on filedocumented in this encounter Additional Health Concerns Assessment Noted Time PHQ-9 Depression Total Score: 0 04/02/19 20 8:40 AM MANPOWER DEVELOPMENT MANAGER documented as of this encounter Care Teams Caustic Pump Operator Relationship Specialty Start Date End Date Esdras Donovan MD [address] [address] PCP - General Family Medicine 09/06/16 Murray Saab MD [address] [place] [address] Pain Medicine-Pain Management 09/06/16 Geronimo Coe MD #[address] [address] Rheumatology 09/06/16 Ravi Tanner PAC [address] [place] [address] Physician Ross Carrier Driver Physician Ross Carrier Driver 12/20/23 documented as of this encounter
--- OUTSIDE RECORDS SUMMARY | 2024-04-14 13:23 | XMS_ITS | Referral Summary ---
Author Organization [facility] Address [address] [place] [address] Care Team Providers Care Supervisor Files Name Role Phone Esdras Donovan MD Primary Care Provider [phone] Ajit Rivero MD Unavailable [phone] Antwan Keller MD Unavailable [phone] Slim Corado MD Unavailable Encounters Date Type Department Care Team Description 04/10/2024 10:14 AM HOOK AND EYE ATTACHER - 04/10/2024 11:59 PM HOOK AND EYE ATTACHER Hospital Encounter [facility] [address] [place] [address] B[address], [address] [place] [address] Keshav Le MD Sacroiliitis (HCC) (Primary Dx); Lumbar radiculopathy; DDD (degenerative disc disease), lumbar Discharge Disposition: Discharge to home or self care 03/13/2024 10:00 AM HOOK AND EYE ATTACHER Office Visit [facility] at [address] [place] [id number] Mary Lou Costa MD Cardiomyopathy, dilated, nonischemic (CMS/HCC) (HCC) (Primary Dx) 03/10/2024 8:30 AM HOOK AND EYE ATTACHER Lab [facility] [address] [place] [address] 03/10/2024 8:15 AM HOOK AND EYE ATTACHER Lab [facility] [address] [place] [id number] from Last 3 Months Allergies No known active allergies Medications aspirin 81 mg enteric coated tablet daily Active cholecalciferol (VITAMIN D-3) 1,000 unit capsule Take 1 capsule (1,000 Units total) by mouth daily 0 Active cyanocobalamin (Vitamin B-12) 500 mcg tablet TAKE 1 TABLET DAILY 0 Active leflunomide (ARAVA) 20 mg tabletIndication s:hold at this time, discuss with rheumatology when it will be safe to resume 1 Active hydrOXYchloroQUI NE (PLAQUENIL) 200 mg tabletIndication s:hold at this time, discuss with rheumatology when safe to resume 1 Active carvediloL (COREG) 3.125 mg tablet Take 1 tablet (3.125 mg total) by mouth 2 (two) times a day with meals 60 tablet 3 4 Active empagliflozin (JARDIANCE) 10 mg tabletIndication s:Heart Failure Take 1 tablet (10 mg total) by mouth daily 30 tablet [address] (PROTONIX) 40 mg EC tabletIndication s:Treatment of Non-Bleeding Gastric Disorder Take 1 tablet (40 mg total) by mouth daily 30 tablet 3 4 Active sacubitriL-valsa rtan (ENTRESTO) 24-26 mg tabletIndication s:chronic heart failure Take 1 tablet by mouth daily 30 tablet 3 4 Active amoxicillin-clav ulanate (AUGMENTIN) 875-125 mg per tablet Take 1 tablet by mouth every 12 (twelve) hours 4 Active fluticasone propionate (FLONASE) 50 mcg/actuation nasal spray Administer 1 spray into affected nostril(s) daily 3 Active albuterol HFA (PROVENTIL HFA,VENTOLIN HFA,PROAIR HFA) 90 mcg/actuation inhaler Inhale 2 puffs every 6 (six) hours as needed 4 Active furosemide (LASIX) 40 mg tablet TAKE 1 TABLET(40 MG) BY MOUTH DAILY 30 tablet 3 4 Active midodrine (PROAMATINE) 10 mg tabletIndication s:Symptomatic Orthostatic Hypotension Take 1 tablet (10 mg total) by mouth as needed (Use as needed) 5 026 Active gabapentin (NEURONTIN) 300 mg capsuleIndicatio ns:Sacroiliitis (HCC),DDD (degenerative disc disease), lumbar Take 1 capsule (300 mg total) by mouth 3 (three) times a day 90 capsule 5 5 025 Active traMADoL (ULTRAM) 50 mg tabletIndication s:Sacroiliitis (HCC),DDD (degenerative disc disease), lumbar Take 1 tablet (50 mg total) by mouth every 6 (six) hours as needed for pain 120 tablet 5 5 025 Active traMADoL (ULTRAM) 50 mg tabletIndication s:Sacroiliitis (HCC),Lumbar radiculopathy,DD D (degenerative disc disease), lumbar Take 1 tablet (50 mg total) by mouth every 6 (six) hours as needed for pain 120 tablet 5 4 025 Discontin ued(Reord er) gabapentin (NEURONTIN) 300 mg capsuleIndicatio ns:Sacroiliitis (HCC),Lumbar radiculopathy,DD D (degenerative disc disease), lumbar Take 1 capsule (300 mg total) by mouth 3 (three) times a day 90 capsule 5 4 025 Discontin ued(Reord er) Active Problems Problem Noted Date Diagnosed Date H/O aortic valve replacement 05/11/2023 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) 05/11/2023 Atrial fibrillation (CMS/HCC) 05/11/2023 Acute renal failure with acu te tubular necrosis superimposed on stage 3a chronic kidney disease 05/11/2023 Ovarian mass 05/09/2023 Kidney lesion 05/09/2023 Lung mass 05/09/2023 Electrolyte abnormality 05/09/2023 WHITNEY (acute kidney injury) 05/09/2023 Degenerative lumbar spinal stenosis 04/21/2021 DDD (degenerative disc disease), lumbar 04/21/19 Rheumatoid arthritis involving multiple sites (C MS/HCC) 04/12/2021 Lumbar radiculopathy 02/09/2021 Sacroiliitis 07/08/2020 Chronic left-sided low back pain without sciatic a 07/08/2020 Chronic rhinitis 07/12/2013 Overview (06/02/2016): CHRONIC RHINITIS Hyperlipidemia 07/12/2013 Overview (06/02/2016): HYPERLIPIDEMIA NEC/NOS Aortic valve disorder 07/12/2013 Overview (06/02/2016): AORTIC VALVE DISORDER Immunizations Immunization Administration Dates Next Due Influenza, Trivalent, IM (MDV) 11/27/2011,2010,12/11/2008 Pneumococcal Polysaccharide PPV23 11/27/2011 TD Preservative Free 10/04/2012 Social History Tobacco Use Types Packs/Day Years Used Date Smoking Tobacco: Former Smokeless Tobacco: Never Tobacco Cessation:Counseling Given: Not Answered Alcohol Use Standard Drinks/Week Comments No 0 (1 standard drink = 0.6 oz pur e alcohol) OASIS D0700: Social Isolation Answer Da te Recorded Frequency of experiencing loneliness or isolatio n Never 06/07/2023 OASIS A1250: Transportation Answer Date Recorded Lack of Transportation (Medical) No 06/07/2023 Lack of Transportation (Non-Medical) No 06/07/2023 Patient Unable or Declines to Respond No 06/07/2023 OASIS B1300: Health Literacy Answer Robbie e Recorded Frequency of needing help to read materials from doctor or pharmacy Sometimes 06/07/2023 [facility] Utilities Answer Date Recorded In the past 12 months has e [employer], [employer], oil, or water [employer] threatened to shut off services in your home? No 05/10/2023 Social Connection and Isolat ion Panel [NHANES] Answer Date Recorded In a typical week, how many times do you talk on the phone with family, friends, or neighbors? More than three times a week 05/10/2023 How often do you get togethe r with friends or relatives? More than three times a week 05/10/2023 How often do you attend chur or evangelical services? More than 4 times per year 05/10/2023 Do you belong to any clubs o r organizations such as oriental orthodox groups, unions, fraternal or athletic groups, or school groups? No 05/10/2023 How often do you attend meet ings of the clubs or organizations you belong to? Never 05/10/2023 Are you , , di vorced, , never , or living with a partner? 05/10/2023 Overall Financial Resource Strain (CARDIA) Answe r Date Recorded How hard is it for you to pa y for the very basics like food, housing, medical care, and heating? Not hard at all 05/10/2023 PHQ-2 Answer Date Recorded PHQ-2 Total Score (If total score is 3 or more points, staff should administer the PHQ-9) 0 04/10/2024 Hunger Vital Sign Answer Date Recorded Within the past 12 months, y ou worried that your food would run out before you got the money to buy more. Never true 05/10/19 24 Within the past 12 months, t he food you bought just didn't last and you didn't have money to get more. Never true 05/10/2023 PRAPARE - Transportation Answer Date Re corded In the past 12 months, has l ack of transportation kept you from medical appointments or from getting medications? No 04/26 In the past 12 months, has l ack of transportation kept you from meetings, work, or from getting things needed for daily living? No 05/10/2023 Housing Stability Vital Sign Answer Robbie e Recorded In the last 12 months, was t here a time when you were not able to pay the mortgage or rent on time? No 05/10/2023 In the last 12 months, how many places have you lived? 1 05/10/2023 In the last 12 months, was t here a time when you did not have a steady place to sleep or slept in a mcc (including now)? No 05/10/2023 Personal Safety Answer Date Recorded Have you ever been in or are you currently in a harmful physical or emotional relationship or is someone making you feel afraid or unsafe? Denies 05/09/2023 Comments No Sex and Gender Information Value Date Recorded Sex Assigned at Not on file Legal Sex Female 6:40 PM HOOK AND EYE ATTACHER Gender Identity Not on file Sexual Orientation Not on file Last Filed Vital Signs Vital Sign Reading Time Taken Comments Blood Pressure 110/68 04/10/2024 10:41 AM HOOK AND EYE ATTACHER Pulse 70 04/10/2024 10:41 AM HOOK AND EYE ATTACHER Temperature 36.3 C (97.4 F) 08/17/2023 12:45 PM CDT Respiratory Rate 16 04/10/2024 10:41 AM HOOK AND EYE ATTACHER Oxygen Saturation 97% 04/10/2024 10:41 AM HOOK AND EYE ATTACHER Inhaled Oxygen Concentration - - Weight 59 kg (130 lb) 03/13/2024 9:58 AM HOOK AND EYE ATTACHER Height 157.5 cm (5' 2 ) 03/13/2024 9:58 AM HOOK AND EYE ATTACHER Body Mass Index 23.78 03/13/2024 9:58 AM HOOK AND EYE ATTACHER Plan of Treatment Not on file Procedures Procedure Name Priority Date/Time Associated Diagnosis Comments EGFR Routine 03/10/2024 8:42 AM HOOK AND EYE ATTACHER COMPREHENSIVE METABOLIC PANEL Routine 03/10/2024 8:42 AM HOOK AND EYE ATTACHER CRP (ACUTE PHASE) Routine 03/10/2024 8:4 2 AM HOOK AND EYE ATTACHER ERYTHROCYTE SEDIMENTATION RATE Routine 03/10/2024 8:42 AM HOOK AND EYE ATTACHER HEPATITIS PANEL, ACUTE Routine 8:42 AM HOOK AND EYE ATTACHER EGFR Routine 03/10/2024 8:39 AM HOOK AND EYE ATTACHER DIFFERENTIAL AUTO Routine 03/10/2024 8:3 9 AM HOOK AND EYE ATTACHER IRON PROFILE W/ IBC Routine 03/10/2024 8 :39 AM HOOK AND EYE ATTACHER PTH Routine 03/10/2024 8:39 AM HOOK AND EYE ATTACHER RENAL FUNCTION PANEL Routine 03/10/2024 8:39 AM HOOK AND EYE ATTACHER CBC WITH AUTO DIFFERENTIAL Routine 03/10/2024 8:39 AM HOOK AND EYE ATTACHER URINALYSIS AND REFLEX TO MICROSCOPIC AND CULTURE Routine 03/10/2024 8:39 AM HOOK AND EYE ATTACHER from Last 3 Months Results * (ABNORMAL) eGFR (03/10/2024 8:42 AM HOOK AND EYE ATTACHER) eGFR 28(L) >=60 mL/min/1. 73 m2 Comment: Interpretive Data Reference Interval Normal >/= 90 mL/min/1.73m2 Mildly decreased* 60 - 89 mL/min/1.73m2 Mildly to moderately decreased 45 - 59 mL/min/1.73m2 Moderately to severely decreased 30 - 44 mL/min/1.73m2 Severely decreased 15 - 29 mL/min/1.73m2 Kidney Failure < 15 mL/min/1.73m2 *Relative to young adult level Estimated glomerular filtration rate is determined by the 2020 CKD-EPI equation recommended by the National Kidney Foundation (A Unifying Approach to GFR Estimation: Recommendations of the NKF-ASK Task Force on Reassessing the Inclusion of Race in Diagnosing Kidney Disease, JASN 2020). The CKD-EPI equation should not be used for patients with unstable renal function and has not been validated in children and those over 70. Current interpretive data was last reviewed 2020. Testing performed by: [address] [address] Blood 03/10/2024 8:42 AM HOOK AND EYE ATTACHER 03/10/2024 12:52 PM HOOK AND EYE ATTACHER Esdras Donovan MD LAB BLOOD ORDERABLES Nakia lynn Result [facility] 1 [facility] Department [place] [address] * Hepatitis panel, acute Blood (03/10/2024 8:42 AM HOOK AND EYE ATTACHER) Hep A IgM Nonreactive Nonreactive Comment: Interpretive Data: If Hep A IgM Ab is reported as Equivocal, a new sample should be drawn in two weeks for testing. Current interpretive data was last revised on 19. Testing performed by: [address] [address] Hep B core IgM Nonreactive Nonreactive Umang [facility] Comment: Interpretive Data If HepB Core IgM Ab is reported as Equivocal, a new sample should be drawn in two weeks for testing. Current interpretive data was last revised on 19. Testing performed by: [facility], [address] [place] [address]., [address] Hep C Ab Nonreactive Nonreactive [facility] Comment: Interpretive Data Nonreactive: Antibodies to HCV not detected. Does NOT exclude the possibility of recent exposure to HCV. Equivocal: Equivocal for HCV antibodies. Supplemental molecular testing will be automatically performed to determine infection status in accordance with current CDC screening recommendations. Reactive: Positive for HCV antibodies. This may represent current or past HCV infection. Supplemental molecular testing will be automatically performed to determine current infection status in accordance with current CDC screening recommendations. Interpretive data was last revised on 2019. Testing performed by: [facility], [address] [place] [address]., [address] HepBsAg Nonreactive Nonreactive [facility] Comment:Testing performed by : [facility], [address] [place] [address]., [address] Blood 03/10/2024 8:42 AM HOOK AND EYE ATTACHER 03/10/2024 8:42 AM HOOK AND EYE ATTACHER Esdras Donovan MD LAB MICROBIOLOGY - GENERA L ORDERABLES Final Result Performing Organization Address City/[facility]/ZIP Co de Phone Number [facility] 1 [facility] [place] [address] * (ABNORMAL) Erythrocyte sedimentation rate (03/10/2024 8:42 AM HOOK AND EYE ATTACHER) Erythrocyte sedimentation rate 44(H) 1 - 30 mm/hr Comment:Testing performed by : [facility], [address] [place] [address]., [address] Blood 03/10/2024 8:42 AM HOOK AND EYE ATTACHER 03/10/2024 8:42 AM HOOK AND EYE ATTACHER Esdras Donovan MD LAB BLOOD ORDERABLES Nakia l Result [facility] 1 [facility] [place] [address] * (ABNORMAL) CRP (acute phase) (03/10/2024 8:42 AM HOOK AND EYE ATTACHER) CRP 14.4(H) <=10.0 mg/L Comment:Testing performed by : [address], [address] Blood 03/10/2024 8:42 AM HOOK AND EYE ATTACHER 03/10/2024 8:42 AM HOOK AND EYE ATTACHER Esdras Donovan MD LAB BLOOD ORDERABLES Nakia lynn Result [facility] ([place] 1 [facility] Department [place] [address] * (ABNORMAL) Comprehensive metabolic panel (03/10/2024 8:42 AM HOOK AND EYE ATTACHER) Pathologist [facility] Sodium 139 135 - 145 mmol/L Comment:Testing performed by : [address], [address] Potassium, pl 4.1 3.3 - 4.9 mmol/L [facility] ([place] Comment:Testing performed by : [address], [address] Chloride 101 97 - 110 mmol/L [facility] ([place] Comment:Testing performed by : [address] [address] CO2 27 22 - 32 mmol/L [facility] ([place] Comment:Testing performed by : [address], [address] Anion gap 11 2 - 15 mmol/L [facility] ([place]) Comment:Testing performed by : [address], [address] BUN 49(H) 6 - 25 mg/dL [facility] ([place]) Comment:Testing performed by : [address], [address] Creatinine 1.75(H) 0.60 - 1.10 mg/dL [facility] ([place]) Comment:Testing performed by : [address], [address] Glucose 101 70 - 199 mg/dL [facility] ([place]) Comment: Interpretive Data Fasting glucose >/= 126 mg/dl is diagnostic for diabetes. Fasting is defined as no caloric intake for at least 8 hours. Fasting glucose between 100 mg/dl to 125 mg/dl is diagnostic of prediabetes. In a patient with classic symptoms of hyperglycemia or hyperglycemic crisis, a random glucose >/= 200 mg/dl is diagnostic for diabetes. In the absence of unequivocal hyperglycemia, results should be confirmed by repeat testing. The classification and Diagnosis of Diabetes Diabetes Care 2021; 46: S19-S40. Current interpretive data was last revised 2022. Testing performed by: [address] [address] Calcium 9.3 8.5 - 10.3 mg/dL [facility] ([place]) Comment:Testing performed by : [address] [address] Bilirubin, total 0.2 0.1 - 1.2 mg/dL [facility] ([place]) Comment:Testing performed by : [address], [address] Protein, pl 6.8 6.5 - 8.5 g/dL [facility] ([place]) Comment:Testing performed by : [address], [address] Albumin 3.7 3.5 - 5.0 g/dL [facility] ([place]) Comment:Testing performed by : [address] [address] Alk phos 182(H) 40 - 130 Units/L [facility] ([place]) Comment:Testing performed by : [address], [address] ALT 11 7 - 45 Units/L [facility] ([place]) Comment:Testing performed by : [address], [address] AST 22 10 - 45 Units/L [facility] ([place]) Comment:Testing performed by : [address], [address] Blood 03/10/2024 8:42 AM HOOK AND EYE ATTACHER 03/10/2024 8:42 AM HOOK AND EYE ATTACHER Esdras Donovan MD LAB BLOOD ORDERABLES Nakia l Result Performing Organization Address City/[facility]/ZIP Co de Phone Number [facility] 1 [facility] [place] [address] * (ABNORMAL) eGFR (03/10/2024 8:39 AM HOOK AND EYE ATTACHER) eGFR 29(L) >=60 mL/min/1. 73 m2 Comment: Interpretive Data Reference Interval Normal >/= 90 mL/min/1.73m2 Mildly decreased* 60 - 89 mL/min/1.73m2 Mildly to moderately decreased 45 - 59 mL/min/1.73m2 Moderately to severely decreased 30 - 44 mL/min/1.73m2 Severely decreased 15 - 29 mL/min/1.73m2 Kidney Failure < 15 mL/min/1.73m2 *Relative to young adult level Estimated glomerular filtration rate is determined by the 2020 CKD-EPI equation recommended by the National Kidney Foundation (A Unifying Approach to GFR Estimation: Recommendations of the NKF-ASK Task Force on Reassessing the Inclusion of Race in Diagnosing Kidney Disease, JASN 2020). The CKD-EPI equation should not be used for patients with unstable renal function and has not been validated in children and those over 70. Current interpretive data was last reviewed 2020. Testing performed by: [address] [address] Blood 03/10/2024 8:39 AM HOOK AND EYE ATTACHER 03/10/2024 12:52 PM HOOK AND EYE ATTACHER us Antwan Keller MD LAB BLOOD ORDERABLES Final Re sult [facility] 1 [facility] [place] [address] * Differential, auto (03/10/2024 8:39 AM HOOK AND EYE ATTACHER) Neutrophil abs 2.7 1.5 - 6.5 K/cumm Comment:Testing performed by : [address] [address] Imm gran abs 0.0 0.0 - 0.1 K/cumm [facility] Comment:Testing performed by : [facility], [address] [place] [address]., [address] Lymphocyte abs 1.1 0.8 - 3.3 K/cumm [facility] ([place]) Comment:Testing performed by : [facility], [address] [place] [address]., [address] Monocyte abs 0.5 0.2 - 0.8 K/cumm [facility] ([place]) Comment:Testing performed by : [facility], [address] [place] [address]., [address] Eosinophil abs 0.2 0.0 - 0.5 K/cumm [facility] ([place]) Comment:Testing performed by : [facility], [address] [place] [address]., [address] Basophil abs 0.0 0.0 - 0.1 K/cumm [facility] ([place]) Comment:Testing performed by : [address] [address] Neutrophil pct 58.8 % [facility] ([place]) Comment: Interpretive Data Percent cell count reference ranges are not reported, since discordance with absolute values may lead to misinterpretation of CBC data. Current Interpretive Data was last revised on 2017. Testing performed by: [address] [address] Imm gran pct 0.2 % [facility] ([place]) Comment: Interpretive Data Percent cell count reference ranges are not reported, since discordance with absolute values may lead to misinterpretation of CBC data. Current Interpretive Data was last revised on 2017. Testing performed by: [facility], [address] [place] [address]., [address] Lymphocyte pct 24.3 % [facility] ([place]) Comment: Interpretive Data Percent cell count reference ranges are not reported, since discordance with absolute values may lead to misinterpretation of CBC data. Current Interpretive Data was last revised on 2017. Testing performed by: [address] [address] Monocyte pct 11.3 % [facility] ([place]) Comment: Interpretive Data Percent cell count reference ranges are not reported, since discordance with absolute values may lead to misinterpretation of CBC data. Current Interpretive Data was last revised on 2017. Testing performed by: [facility], [address] [place] [address]., [address] Eosinophil pct 5.0 % [facility] ([place]) Comment: Interpretive Data Percent cell count reference ranges are not reported, since discordance with absolute values may lead to misinterpretation of CBC data. Current Interpretive Data was last revised on 2017. Testing performed by: [facility], [address] [place] [address], [address] Basophil pct 0.4 % [facility] ([place]) Comment: Interpretive Data Percent cell count reference ranges are not reported, since discordance with absolute values may lead to misinterpretation of CBC data. Current Interpretive Data was last revised on 2017. Testing performed by: [address], [address] Blood 03/10/2024 8:39 AM HOOK AND EYE ATTACHER 03/10/2024 8:39 AM HOOK AND EYE ATTACHER Antwan Keller MD LAB BLOOD ORDERABLES Final Re sult [facility] 1 [facility] Department [place] [address] * (ABNORMAL) Iron profile w/ IBC (03/10/2024 8:39 AM HOOK AND EYE ATTACHER) Iron 51 35 - 145 mcg/dl Comment:Testing performed by : [address], [address] TIBC 281 250 - 400 mcg/dL [facility] Comment:Testing performed by : [address] [address] Transferrin saturation 18(L) 20 - 50 % [facility]) Comment:Testing performed by : [address] [address] Blood 03/10/2024 8:39 AM HOOK AND EYE ATTACHER 03/10/2024 8:39 AM HOOK AND EYE ATTACHER Antwan Keller MD LAB BLOOD ORDERABLES Final Re sult [facility] 1 [facility] Department [place] [address] * Urinalysis reflex to microscopic and culture Urine, clean voided (03/10/2024 8:39 AM HOOK AND EYE ATTACHER) Color, ur Yellow Yellow Comment:Testing performed by : [address] [address] Clarity, ur Clear Clear [facility] ([place]) Comment:Testing performed by : [address], [address] Specific gravity, ur 1.011 1.003 - 1.030 [facility]) Comment:Testing performed by : [address], [address] pH, urine 6.5 [facility]) Comment: Interpretive Data U rine pH is affected by diet, medications, systemic acid-base disturbances, and renal tubular function. pH may affect urinary stone formation. For example, urine pH below 6.0 may help reduce the tendency for calcium phosphate stones and pH greater than 6.0 may reduce the tendency for uric acid stone formation. Source: [facility] Current Interpretive Data was last revised on 2017 Testing performed by: [address] [address] Protein, ur ql Negative Negative [facility] ([place]) Comment:Testing performed by : [address], [address] Glucose, ur ql Negative Negative [facility] ([place]) Comment:Testing performed by : [address] [address] Ketones, ur Negative Negative [facility] A ([place]) Comment:Testing performed by : [address], [address] Bilirubin, ur Negative Negative [facility] ([place]) Comment:Testing performed by : [address], [address] Blood, ur Negative Negative [facility] ([place]) Comment:Testing performed by : [address], [address] Urobilinogen, ur <2.0 <2.0 mg/dL [facility] ([place]) Comment:Testing performed by : [facility], [address] [place] [address], [address] Nitrite, ur Negative Negative [facility] ([place]) Comment:Testing performed by : [address], [address] Leukocyte esterase, ur Negative Negative [facility] ([place]) Comment:Testing performed by : [address], [address] UA reflex comment Reflex conditions for microscopic UA and culture not met. [facility] ([place]) Comment:Testing performed by : [address], [address] Urine, clean voided 03/10/2024 8:39 AM HOOK AND EYE ATTACHER 03/10/2024 8:40 AM HOOK AND EYE ATTACHER Antwan Keller MD LAB MICROBIOLOGY - GENERAL OR DERABLES Final Result [facility] 1 [facility] Department [place] [address] * (ABNORMAL) CBC with auto differential (03/10/2024 8:39 AM HOOK AND EYE ATTACHER) WBC 4.6 3.8 - 9.9 K/cumm Comment:Testing performed by : [address], [address] Hgb 9.8(L) 11.9 - 15.5 g/dL [facility] ([place]) Comment:Testing performed by : [address], [address] Hct 32.7(L) 35.6 - 45.5 % [facility] ([place]) Comment:Testing performed by : [address], [address] Plt 212 150 - 400 K/cumm [facility] ([place]) Comment:Testing performed by : [address], [address] MPV 11.1 9.1 - 12.3 fL [facility] ([place]) Comment:Testing performed by : [facility], [address] [place] [address], [address] RBC 3.60(L) 3.90 - 5.20 M/cumm [facility] ([place]) Comment:Testing performed by : [facility], [address] [place] [address], [address] MCV 90.8 81.3 - 96.4 fL [facility] ([place]) Comment:Testing performed by : [facility], [address] [place] [address], [address] MCH 27.2 27.1 - 33.3 pg [facility] ([place]) Comment:Testing performed by : [address], [address] MCHC 30.0(L) 32.3 - 35.7 g/dL [facility] ([place]) Comment:Testing performed by : [address], [address] RDW CV 14.2 11.1 - 14.9 % [facility] ([place]) Comment:Testing performed by : [facility], [address] [place] [address], [address] RDW SD 47.3 35.7 - 48.1 fL [facility] ([place]) Comment:Testing performed by : [address], [address] NRBC abs 0.00 0.00 - 0.01 K/cumm [facility] ([place]) Comment:Testing performed by : [address], [address] Blood 03/10/2024 8:39 AM HOOK AND EYE ATTACHER 03/10/2024 8:39 AM HOOK AND EYE ATTACHER us Antwan Keller MD LAB BLOOD ORDERABLES Final Re sult [facility] ([place]) 1 [facility] Department [place] [address] * (ABNORMAL) PTH (03/10/2024 8:39 AM HOOK AND EYE ATTACHER) PTH 199(H) 15 - 65 pg/mL Comment:Testing performed by : [address], [address] Blood 03/10/2024 8:39 AM HOOK AND EYE ATTACHER 03/10/2024 8:39 AM HOOK AND EYE ATTACHER us Antwan Keller MD LAB BLOOD ORDERABLES Final Re sult [facility] 1 [facility] Department [place] [address] * (ABNORMAL) Renal function panel (03/10/2024 8:39 AM HOOK AND EYE ATTACHER) Sodium 138 135 - 145 mmol/L Comment:Testing performed by : [address] [address] Potassium, pl 4.1 3.3 - 4.9 mmol/L [facility] ([place]) Comment:Testing performed by : [address], [address] Chloride 100 97 - 110 mmol/L [facility] ([place]) Comment:Testing performed by : [address], [address] CO2 27 22 - 32 mmol/L [facility] ([place]) Comment:Testing performed by : [address], [address] Anion gap 11 2 - 15 mmol/L [facility] ([place]) Comment:Testing performed by : [address], [address] BUN 51(H) 6 - 25 mg/dL [facility] ([place]) Comment:Testing performed by : [address], [address] Creatinine 1.71(H) 0.60 - 1.10 mg/dL [facility] ([place]) Comment:Testing performed by : [address], [address] Glucose 99 70 - 199 mg/dL [facility] ([place]) Comment: Interpretive Data Fasting glucose >/= 126 mg/dl is diagnostic for diabetes. Fasting is defined as no caloric intake for at least 8 hours. Fasting glucose between 100 mg/dl to 125 mg/dl is diagnostic of prediabetes. In a patient with classic symptoms of hyperglycemia or hyperglycemic crisis, a random glucose >/= 200 mg/dl is diagnostic for diabetes. In the absence of unequivocal hyperglycemia, results should be confirmed by repeat testing. The classification and Diagnosis of Diabetes Diabetes Care 202; 46: S19-S40. Current interpretive data was last revised 2022. Testing performed by: [facility], [address] [place] [address]., [address] Calcium 9.2 8.5 - 10.3 mg/dL [facility] ([place]) Comment:Testing performed by : [facility], [address] [place] [address]., [address] Phosphorus, pl 3.4 2.3 - 4.5 mg/dL [facility] ([place]) Comment:Testing performed by : [facility], [address] [place] [address], [address] Albumin 3.7 3.5 - 5.0 g/dL [facility] ([place]) Comment:Testing performed by : [facility], [address] [place] [address], [address] Blood 03/10/2024 8:39 AM HOOK AND EYE ATTACHER 03/10/2024 8:39 AM HOOK AND EYE ATTACHER Antwan Keller MD LAB BLOOD ORDERABLES Final Re sult [facility] ([place]) 1 [facility] Department [place] [address] from Last 3 Months Insurance MEDICARE [facility] Advance Directives For more information, please contact: [phone] * Full Code (Latest Code Status on File) Date Activated Date Inactivated Comments 05/09/2023 9:56 PM 05/18/2023 12:32 PM Care Teams Supervisor Files Relationship Specialty Start Date End Date Esdras Donovan MD [address] [place] [address] PCP - General 09/05/16 Ajit Rivero MD [address] [place] [address] Consulting Physician Cardiovascular Disease 05/18/23 Antwan Keller MD [address] [place] [address] Consulting Physician Nephrology 05/18/23 Slim Corado MD [address] [place] [address] Consulting Physician Pulmonary Disease 05/18/23
--- OUTSIDE RECORDS SUMMARY | 2024-04-14 13:23 | XMS_ITS | Encounter Summary ---
Author Organization [facility] Address [address] [facility] [facility] [address] [place] [address] Phone Care Team Providers Care Rock Crusher Name Role Phone Esdras Donovan MD Primary Care Provider Murray Saab MD Unavailable Unavailabl e Geronimo Coe MD Unavailable [phone] Ravi Tanner PAC Unavailable [phone] Reason for Visit * Reason Comments Medication Refill Encounter Details Date Type Department Care Team (Late st Contact Info) Description 03/06/2022 Refill [facility] [address] [place] [address] Esdras Donovan MD [address] [address] Medication Refill Social History Tobacco Use Types [...] encounter Miscellaneous Notes * Telephone Encounter - Ольга Cameron RN - 03/07/2022 8:49 AM KITCHEN STEWARD Medication failed the protocol, provider to review and approve the medication order if appropriate. Requested Prescriptions Pending Prescriptions Disp Refills vitamin b-12 (CYANOCOBALAMIN) 500 MCG Tablet [Pharmacy Med Name: VITAMIN B-12 TABS 500MCG] 90 Tablet 3 Sig: TAKE 1 TABLET DAILY Not Delegated - Off Protocol Failed - 03/06/2022 11:20 PM Failed - This refill cannot be delegated Passed - Visit with relevant provider in past 12 months or upcoming 90 days Recent Visits Date Type Provider Dept 01/09/22 Office Visit Jono Maynard APRN, [facility] 12/22/21 Office Visit Jono Maynard APRN, [facility] 09/14/21 Office Visit Esdras Donovan MD [facility] Showing recent visits within past 365 days and meeting all other requirements Future Appointments Date Type Provider Dept 03/23/22 Appointment Esdras Donovan MD [facility] Showing future appointments within next 90 days and meeting all other requirements HEN STEWARD documented in this encounter Plan of Treatment Upcoming Encounters Date Type Department Care Team (Late st Contact Info) Description 04/22/2024 1:00 PM KITCHEN STEWARD Office Visit [facility] - Family Medicine [facility] [address] [place] [address] Esdras Donovan MD #[address] [address] documented as of this encounter Visit Diagnoses Not on filedocumented in this encounter Additional Health Concerns Assessment Noted Time PHQ-9 Depression Total Score: 0 04/02/19 8:40 AM KITCHEN STEWARD documented as of this encounter Care Teams Rock Crusher Relationship Specialty Start Date End Date Esdras Donovan MD #[address] [address] PCP - General Family Medicine 09/06/16 Murray Saab MD #[address] [address] Pain Medicine-Pain Management 09/06/16 Geronimo Coe MD #[address] [address] Rheumatology 09/06/16 Ravi Tanner PAC #1 [place] [address] Physician Guyline Operator Physician Guyline Operator 12/20/23 documented as of this encounter
--- OUTSIDE RECORDS SUMMARY | 2024-04-14 13:23 | XMS_ITS | Encounter Summary ---
Author Organization [facility] Address [address] [facility] [place] [address] Phone Care Team Providers Care Structural Mill Supervisor Name Role Phone Esdras Donovan MD Primary Care Provider [phone] Murray Saab MD Unavailable Unavailabl e Geronimo Coe MD Unavailable [phone] Ravi Tanner PAC Unavailable [phone] Reason for Visit * Reason Comments Medication Refill Encounter Details Date Type Department Care Team (Late st Contact Info) Description 09/10/2022 Refill [facility] [address]2 [place] [address] Esdras Donovan MD #[address] [address] Medication Refill Social History Tobacco Use Types [...] Encounter - Sehr, Laura L, RN - 09/11/2022 3:19 PM CDT Still shows on current medication list and pt is still receiving refills on this medication. Per nursing clinical judgement, provider to review and approve the medication(s) order(s) if appropriate. Requested Prescriptions Pending Prescriptions Disp Refills D 1000 25 MCG (1000 UT) Capsule [Pharmacy Med Name: VIT D-3 CAPS (CHOLECALCIFER) 1,000U] 90 Capsule3 Sig: TAKE 1000 UNITS (1 CAPSULE) DAILY Vitamin Supplements (Adult) Protocol Passed - 09/10/2022 11:23 PM Passed - Visit with relevant provider in past 12 months or upcoming 90 days Recent Visits Date Type Provider Dept 07/26/22 Office Visit Esdras Donovan MD [facility] 03/23/22 [facility]22 Office Visit Jono Maynard APRN, [facility] 12/22/21 Office Visit Jono Maynard APRN, [facility] 09/14/21 [facility] Show[facility] recent visits within past 365 days and meeting all other requirements Future Appointments No visits were found meeting these conditions. Showing future appointments within next 90 days and meeting all other requirements Passed - Vitamin D dose not greater than 1.25mg documented in this encounter Plan of Treatment Upcoming Encounters Date Type Department Care Team (Late st Contact Info) Description 04/22/2024 1:00 PM CHIEF TECHNICIAN Office Visit [facility] - Family Medicine - Saad [address] [place] [address] Esdras Donovan MD [address] [address] documented as of this encounter Visit Diagnoses Not on filedocumented in this encounter Additional Health Concerns Assessment Noted Time PHQ-9 Depression Total Score: 0 04/02/19 20 8:40 AM CHIEF TECHNICIAN documented as of this encounter Care Teams Structural Mill Supervisor Relationship Specialty Start Date End Date Esdras Donovan MD #[address] [address] PCP - General Family Medicine 09/06/16 Murray Saab MD #[address] [address] Pain Medicine-Pain Management 09/06/16 Geronimo Coe MD #[address] [address] Rheumatology 09/06/16 Ravi Tanner PAC [address]1 [place] [address] Physician Bullet Slug Casting Machine Operator Physician Bullet Slug Casting Machine Operator 12/20/23 documented as of this encounter
--- OUTSIDE RECORDS SUMMARY | 2024-04-14 13:23 | XMS_ITS | Referral Summary ---
Author Organization [facility] Address [address] [place] [address] Care Team Providers Care Animal Care Assistant Name Role Phone Evangelina Coe MD Unavailable Juan Miguel Monique MD Unavailable [phone] Esdras Donovan MD Primary Care Provider [phone] [facility],non-owned Affiliates and Associated Physician Practices is amultiple site organization consisting of ambulatory clinics and hospital sitesin [place], [place], [place] and [place]. This disclosure is being madepursuant to the Care Everywhere program and may not contain all information available regarding this patient. Last updated 17.[facility] Yunzhisheng Allergies No known active allergies Medications * [...] fluticasone propionate (FLONASE) 50 MCG/ACT nasal spray [place] 2 sprays into each nostril once daily [...] Lf Tetanus Tox oid, Adsorbed, Pf 10/04/2012 Social History Tobacco Use Types Packs/Day [...] 36.2 C (97.2 F) 03/01/2021 8:51 AM DISASTER DIRECTOR Respiratory Rate 18 12/20/2023 10:49 AM [...] st Contact Info) Description 04/29/2024 10:00 AM DISASTER DIRECTOR Office Visit [facility] - Rheumatology [address] [facility] [address] [place] [address] [place] [address] [place] [address] Care Teams Animal Care Assistant Relationship Specialty Start Date End Date Esdras Donovan MD [address] [address] PCP - General Family Medicine 08/28/16 [place] [address] [facility] [address] [place] [address] Consulting Physician Internal Medicine 04/27/15 Juan Miguel Monique MD [address] [address] Ophthalmology 09/13/15
--- OUTSIDE RECORDS SUMMARY | 2024-04-14 13:23 | XMS_ITS | Encounter Summary ---
Author Organization [facility] Address [address] [place] [address] Phone Care Team Providers Care Bath Mix Operator Name Role Phone Esdras Donovan MD Primary Care Provider Murray Saab MD Unavailable Unavailabl e Geronimo Coe MD Unavailable [phone] Ravi Tanner PAC Unavailable [phone] Reason for Visit * Reason Comments Medication Refill Encounter Details Date Type Department Care Team (Late st Contact Info) Description 09/17/2020 Refill [facility] [address] [place] [address] Esdras Donovan MD [address] [address] Medication Refill Social History Tobacco Use Types [...] Telephone Encounter - Laura Rizvi RN - 09/20/2020 8:44 AM CDT Medication failed the protocol, provider to review and approve the medication order if appropriate. Requested Prescriptions Pending Prescriptions Disp Refills D 1000 25 MCG (1000 UT) Capsule [Pharmacy Med Name: VIT D-3 CAPS (CHOLECALCIFER) 1,000U] 90 Capsule3 Sig: TAKE 1000 UNITS (1 CAPSULE) DAILY healthfinch Off-Protocol Failed - 09/17/2020 11:16 PM Failed - Medication not assigned to a protocol, review manually. Passed - Valid encounter within last 12 months Past Office Visits Recent Outpatient Visits 5 months ago [facility] 11 months [facility] Hyperlipidemia, unspecified [facility]lipidemia [facility] 1 year [facility] B12 [facility] 1 year ago Vitamin D [facility] 2 years ago Vitamin D [facility] Upcoming Appointments Future Appointments In 1 week Jono Maynard APN, H[facility], [facility] TARRING MACHINE OPERATOR - Recent and Past Visits Recent Visits Date Type Provider Dept 04/02/20 Office Visit Jono Maynard APN, [facility] 10/01/19 Office Visit Esdras Donovan MD [facility] Saad Showing recent visits within past 460 days with a meds authorizing provider and meeting all other requirements Future Appointments Date Type Provider Dept 09/30/20 Appointment Jono Maynard APN, [facility] Showing future appointments within next 90 days with a meds authorizing provider and meeting all other requirements documented in this encounter Plan of Treatment Upcoming Encounters Date Type Department Care Team (Late st Contact Info) Description 04/22/2024 1:00 PM TELETRAY OPERATOR Office Visit [facility] [place] [address] Esdras Donovan MD #[address] [address] documented as of this encounter Visit Diagnoses Not on filedocumented in this encounter Additional Health Concerns Assessment Noted Time PHQ-9 Depression Total Score: 0 04/02/19 20 8:40 AM TELETRAY OPERATOR documented as of this encounter Care Teams Bath Mix Operator Relationship Specialty Start Date End Date Esdras Donovan MD #[address] [address] PCP - General Family Medicine 09/06/16 Murray Saab MD #[address] [address] Pain Medicine-Pain Management 09/06/16 Geronimo Coe MD #[address] [address] Rheumatology 09/06/16 Ravi Tanner PAC #1 [place] [address] Physician Senior Application Security Consultant Physician Senior Application Security Consultant 12/20/23 documented as of this encounter
--- OUTSIDE RECORDS SUMMARY | 2024-04-14 13:23 | XMS_ITS | Clinical Summary ---
Author Organization [facility] Address [address] [place] [address] Phone Care Team Providers Care Products Mechanical Design Engineer Name Role Phone Esdras Donovan MD Primary Care Provider Murray Saab MD Unavailable Unavailabl e Geronimo Coe MD Unavailable [phone] Ravi Tanner PAC Unavailable Allergies Active Allergy Reactions Criticality Noted Date Comments Leflunomide Other (see Comments) 09/04/2023 CHF Hydroxychloroquine Other (see Comments) 024 CHF Medications traMADol (ULTRAM) 50 MG Tablet Take 50 mg by mouth every 6 hours as needed. 9 Active Aspirin Low Dose 81 MG Chewable Tablet Take 81 mg by mouth daily. 4 Active albuterol 108 (90 Base) MCG/ACT Aerosol Solution take 2 Puffs by inhalation every 6 hours as needed for Wheezing. 4 Active D3-1000 25 MCG (1000 UT) Capsule TAKE 1000 UNITS (1 CAPSULE) DAILY 90 Capsule 3 4 Active fluticasone (FLONASE) 50 MCG/ACT Suspension 1 [place] by Nasal route daily. Use in each nostril as directed. 16 g 1 4 Active furosemide (LASIX) 40 MG Tablet Take by mouth. 4 Active gabapentin (NEURONTIN) 100 MG Capsule 4 Active vitamin b-12 (CYANOCOBALAMIN ) 500 MCG Tablet TAKE 1 TABLET DAILY 90 Tablet 3 4 Active carvedilol (COREG) 3.125 MG Tablet TAKE 1 TABLET BY MOUTH TWICE DAILY 180 Tablet 1 5 Active Active Problems Problem Noted Date Diagnosed Date Cardiomyopathy 12/19/2023 Dizziness 12/19/2023 Acute maxillary sinusitis 09/19/2023 Chronic kidney disease 09/04/2023 URI, acute 09/04/2023 Systolic congestive heart failure 09/04/2023 Postmenopausal 01/25/2023 Hyperkalemia 01/25/2023 Claudication in peripheral vascular disease 05/27 Leg swelling 03/23/2022 Claudication of both lower extremities 3 Easy bruising 09/14/2021 Fingernail abnormalities 09/14/2021 Ankle mass, left 09/14/2021 Abnormal CXR 09/14/2021 Atelectasis of left lung 09/14/2021 COVID-19 12/31/2020 Stage 3b chronic kidney disease 10/05/2020 Seasonal allergies 10/01/2019 Noncompliance 12/24/2018 B12 deficiency 09/20/2018 Overweight (BMI 25.0-29.9) 09/20/2017 Ex-smoker 09/20/2017 High blood pressure 06/14/2017 Vitamin D insufficiency 05/27/2017 Hyperlipidemia 05/27/2017 Elevated serum creatinine 09/06/2016 Chronic pain syndrome 09/06/2016 Sciatica 09/06/2016 Rheumatoid arthritis with positive rheumatoid fa ctor Encounters Date Type Department Care Team Description 03/12/2024 [facility] [address] [place] [address] Esdras Donovan MD Medication Refill 02/24/2024 [facility] [address] [place] [address] Esdras Donovan MD Medication Refill 01/22/2024 10:15 AM PURCHASING DEPARTMENT CLERK Office Visit [facility] - Orthopedic Surgery - [place] [address] [place] [address] Ravi Tanner, PAC Olecranon bursitis of right elbow (Primary Dx) Discharge Disposition: Discharged to home or Selfcare 01/22/2024 Travel from Last 3 Months Immunizations Immunization Administration Dates Next Due Influenza Vaccine,unspecified Formulation 2011,11/25/2010,12/11/2008 Influenza, Seasonal, Injectable, Undefined 11/26,11/25/2010,12/11/2008 PNEUMONIA ADULT IM [id number] 11/27/2011 Pneumococcal Vaccine Adult - 23 Valent 2 TD VACCINE 10/04/2012 Td (Adult) 10/04/2012 Td Vaccine (preservative free) 10/04/2012 Social History Tobacco Use Types Packs/Day Years Used Date Smoking Tobacco: Never Smokeless Tobacco: Never Alcohol Use Standard Drinks/Week Comments No 0 (1 standard drink = 0.6 oz pur e alcohol) [facility] Utilities Answer Date Recorded In the past 12 months has th e electric, gas, oil, or water company threatened to shut off services in your home? No 11/08/2023 Social Connection and Isolation Panel [NHANES] A nswer Date Recorded In a typical week, how many times do you talk on the phone with family, friends, or neighbors? Once a week 11/08/2023 Frequency of Social Gatherings with Friends and Family Not on file 11/08/2023 Attends Islam Services Not on file 11/07 Active Member of Clubs or Organizations Not on f ile 11/08/2023 Attends Club or Organization Meetings Not on alice e 11/08/2023 Marital Status Not on file 11/08/2023 AUDIT-C Answer Date Recorded Q1: How often do you have a drink containing alc ohol? Never 11/08/2023 Average Number of Drinks Not on file 024 Frequency of Binge Drinking Not on file 10/27 Overall Financial Resource Strain (CARDIA) Answe r Date Recorded How hard is it for you to pa y for the very basics like food, housing, medical care, and heating? Not hard at all 11/08/2023 PHQ-2 Answer Date Recorded Total Score - Questions 1-9 0 08/27 [facility] - Occupational Stress Questionnaire Answer Date Recorded Do you feel stress - tense, restless, nervous, or anxious, or unable to sleep at night because your mind is troubled all the time - these days? Not at all 11/08/2023 Exercise Vital Sign Answer Date Recorde d On average, how many days pe r week do you engage in moderate to strenuous exercise (like a brisk walk)? 5 days Minutes of Exercise per Session Not on file 11/08/2023 Hunger Vital Sign Answer Date Recorded Within the past 12 months, y ou worried that your food would run out before you got the money to buy more. Never true 11/08/19 24 Ran Out of Food in the Last Year Not on file 11/08/2023 PRAPARE - Transportation Answer Date Re corded In the past 12 months, has l ack of transportation kept you from medical appointments or from getting medications? No 11/08/2023 Lack of Transportation (Non-Medical) Not on file 11/08/2023 Housing Stability Vital Sign Answer Robbie e Recorded In the last 12 months, was t here a time when you were not able to pay the mortgage or rent on time? No 11/08/2023 Number of Times Moved in the Last Year Not on fi le 11/08/2023 Homeless in the Last Year Not on file 2023 Education Answer Date Recorded What is the [...] Sign Reading Time Taken Comments Blood Pressure 124/78 01/22/2024 10:03 AM PURCHASING DEPARTMENT CLERK Pulse 74 01/22/2024 10:03 AM PURCHASING DEPARTMENT CLERK Temperature 36.1 C (96.9 F) 01/22/2024 10:03 AM PURCHASING DEPARTMENT CLERK Respiratory Rate 16 01/22/2024 10:03 AM PURCHASING DEPARTMENT CLERK Oxygen Saturation 99% 01/22/2024 10:03 AM PURCHASING DEPARTMENT CLERK Inhaled Oxygen Concentration - - Weight 58.5 kg (129 lb) 01/22/2024 10:03 AM PURCHASING DEPARTMENT CLERK Height 157.5 cm (5' 2 ) 01/22/2024 10:03 AM PURCHASING DEPARTMENT CLERK Body Mass Index 23.59 01/22/2024 10:03 AM PURCHASING DEPARTMENT CLERK Plan of Treatment Upcoming Encounters Date Type Department Care Team (Late st Contact Info) Description 04/22/2024 1:00 PM PURCHASING DEPARTMENT CLERK Office Visit [facility] - Family Medicine - [place] [address] [place] [address] Esdras Donovan MD [address] [facility] [address] [place] [address] Health Maintenance Due Date Last Done Comments DEXA Bone Density 1940 TdaP Immunization 1940 Zoster Immunization (1 of 2) 05/30/1989 Pneumococcal Immunization (50+ years) (3 of 3 - PCV) 11/26/2012 11/27/2011, 11/27/2011 Respiratory Syncytial Virus (RSV) Immunization (Adult) (1 - 1-dose 75+ series) 05/30/2014 Influenza Immunization (#1) 10/28/202302/2011, 11/25/2010, 12/11/2008 SARS-COV-2 Immunization ( season) 2023 Pneumococcal Immunization Combined Discontinued 11/27/2011, 11/27/2011 Hepatitis C Virus (HCV) Screening Completed 03/10/2024, 03/30/2022, 12/30/2013 Hepatitis B Immunization Aged Out No longer eligible based on patient's age to complete this topic Meningococcal Immunization (ACWY) Aged Out No longer eligible based on patient's age to complete this topic Rotavirus Immunization Aged Out No lo nger eligible based on patient's age to complete this topic Procedures Procedure Name Priority Date/Time Associated Diagnosis Comments C-REACTIVE PROTEIN (CRP) QUANT 03/10/2024 12:00 AM PURCHASING DEPARTMENT CLERK HEPATITIS PANEL ACUTE (AHP) 03/10/2024 12:00 AM PURCHASING DEPARTMENT CLERK ERYTHROCYTE SEDIMENTATION RATE (ESR) 03/10/2024 12:00 AM PURCHASING DEPARTMENT CLERK CMP (COMPREHENSIVE METABOLIC PANEL) 03/10/2024 12:00 AM PURCHASING DEPARTMENT CLERK from Last 3 Months Results * ERYTHROCYTE SEDIMENTATION RATE (ESR) (03/10/2024 12:00 AM PURCHASING DEPARTMENT CLERK) 03/10/2024 us Provider Scan HEMATOLOGY ORDERABLES Final Resu lt SCAN * HEPATITIS PANEL ACUTE (AHP) (03/10/2024 12:00 AM PURCHASING DEPARTMENT CLERK) 03/10/2024 us Provider Scan HEMATOLOGY ORDERABLES Final Resu lt SCAN * CMP (COMPREHENSIVE METABOLIC PANEL) (03/10/2024 12:00 AM PURCHASING DEPARTMENT CLERK) 03/10/2024 us Provider Scan CHEMISTRY ORDERABLES Final Resul t SCAN * C-REACTIVE PROTEIN (CRP) QUANT (03/10/2024 12:00 AM PURCHASING DEPARTMENT CLERK) 03/10/2024 us Provider Scan CHEMISTRY ORDERABLES Final Resul t SCAN from Last 3 Months Insurance SHARED carbon sequestration plant manager MEDICARE Care Teams Products Mechanical Design Engineer Relationship Specialty Start Date End Date Esdras Donovan MD [address] [address] PCP - General Family Medicine 09/06/16 Murray Saab MD [address] [address] Pain Medicine-Pain Management 09/06/16 Geronimo Coe MD #[address] [address] Rheumatology 09/06/16 Ravi Tanner PAC [address] [place] [address] Physician Android Architect Physician Android Architect 12/20/23
--- OUTSIDE RECORDS SUMMARY | 2024-04-14 13:24 | XMS_ITS | Encounter Summary ---
Author Organization [facility] Address [address] [place] [address] Phone Care Team Providers Care Epic Kaleidoscope Analyst Name Role Phone Esdras Donovan MD Primary Care Provider Murray Saab MD Unavailable Unavailabl e Geronimo Coe MD Unavailable [phone] Ravi Tanner PAC Unavailable [phone] Encounter Details Date Type Department Care Team (Late Contact Info) Description 06/07/2023 Telephone [facility] [address] [place] [address] Esdras Donovan MD [address] [address] Social History Tobacco Use Types Packs/Day Years [...] Department Care Team (Late Contact Info) Description 04/22/2024 1:00 PM OFFICE SERVICES MANAGER Office Visit [facility] - Family Medicine - [place] [address] [place] [address] Esdras Donovan MD [address] [place] [address] documented as of this encounter Visit Diagnoses Not on filedocumented in this encounter Additional Health Concerns Assessment Noted Time PHQ-9 Depression Total Score: 0 04/02/19 20 8:40 AM OFFICE SERVICES MANAGER documented as of this encounter Care Teams Epic Kaleidoscope Analyst Relationship Specialty Start Date End Date Esdras Donovan MD [address] [address] PCP - General Family Medicine 09/06/16 Murray Saab MD [address] [place] [address] Pain Medicine-Pain Management 09/06/16 Geronimo Coe MD #[address] [address] Rheumatology 09/06/16 Ravi Tanner PAC [address] [place] [address] Physician Garbage Depot Worker Physician Garbage Depot Worker 12/20/23 documented as of this encounter
--- OUTSIDE RECORDS SUMMARY | 2024-04-14 13:24 | XMS_ITS | Encounter Summary ---
Author Organization [facility] Address [address] [place] [address] Phone Care Team Providers Care Ecological Risk Assessor Name Role Phone Esdras Donovan MD Primary Care Provider Murray Saab MD Unavailable Unavailabl e Geronimo Coe MD Unavailable [phone] Ravi Tanner PAC Unavailable [phone] Reason for Visit * Reason Comments Medication Refill Encounter Details Date Type Department Care Team (Late st Contact Info) Description 03/01/2023 [facility]ill [facility] [address] [place] [address] Esdras Donovan MD [address] [address] Medication Refill Social History Tobacco Use Types [...] Encounter - Sehr, Laura L, RN - 03/02/2023 9:55 AM CST Medication failed the protocol, provider to review and approve the medication order if appropriate. Requested Prescriptions Pending Prescriptions Disp Refills vitamin b-12 (CYANOCOBALAMIN) 500 MCG Tablet [Pharmacy Med Name: VITAMIN B-12 TABS 500MCG] 90 Tablet 3 Sig: TAKE 1 TABLET DAILY Not Delegated - Off Protocol Failed - 03/01/2023 11:17 PM Failed - This refill cannot be delegated Passed - Visit with relevant provider in past 12 months or upcoming 90 days Recent Visits Date Type Provider Dept 01/25/23 Office Visit Esdras Donovan MD [facility] 07/26/22 Office Visit Esdras Donovan MD [facility] 03/23/22 Office Visit Esdras Donovan MD [facility] Showing recent visits within past 365 days and meeting all other requirements Future Appointments Date Type Provider Dept 05/09/23 Appointment Esdras Donovan MD [facility] Showing future appointments within next 90 days and meeting all other requirements LINE TEAMSTER documented in this encounter Plan of Treatment Upcoming Encounters Date Type Department Care Team (Late st Contact Info) Description 04/22/2024 1:00 PM LONG LINE TEAMSTER Office Visit [facility] - Family Medicine - [place] [address] [place] [address] Esdras Donovan MD [address] [address] documented as of this encounter Visit Diagnoses Not on filedocumented in this encounter Additional Health Concerns Assessment Noted Time PHQ-9 Depression Total Score: 0 04/02/19 20 8:40 AM LONG LINE TEAMSTER documented as of this encounter Care Teams Ecological Risk Assessor Relationship Specialty Start Date End Date Esdras Donovan MD [address] [address] PCP - General Family Medicine 09/06/16 Murray Saab MD [address] [address] Pain Medicine-Pain Management 09/06/16 Geronimo Coe MD #[address] [address] Rheumatology 09/06/16 Ravi Tanner PAC [address] [place] [address] Physician Enrobing Machine Operator Physician Enrobing Machine Operator 12/20/23 documented as of this encounter
--- OUTSIDE RECORDS SUMMARY | 2024-04-14 13:24 | XMS_ITS | Clinical Summary ---
Author Organization [facility] Address [address] [place] [address] Care Team Providers Care Senior Policy Associate Name Role Phone Esdras Donovan MD Primary Care Provider [phone] Ajit Rivero MD Unavailable [phone] Antwan Keller MD Unavailable [phone] Slim Corado MD Unavailable Allergies No known active allergies Medications aspirin [...] disorder 07/12/2013 Overview (06/02/2016): AORTIC VALVE DISORDER Encounters Date Type Department Care Team Description 04/10/2024 10:14 AM VP SECURITY - 04/10/2024 11:59 PM VP SECURITY Hospital Encounter [facility] [address] [place] [address] Bld[address], [address] [place] [address] Keshav Le MD Sacroiliitis (HCC) (Primary Dx); Lumbar radiculopathy; DDD (degenerative disc disease), lumbar Discharge Disposition: Discharge to home or self care 03/13/2024 10:00 AM VP SECURITY Office Visit [facility] at [address] [place] [address] Mary Lou Costa MD Cardiomyopathy, dilated, nonischemic (CMS/HCC) (HCC) (Primary Dx) 03/10/2024 8:30 AM VP SECURITY Lab [facility] [address] [place] [address] 03/10/2024 8:15 AM VP SECURITY Lab [facility] [address] [place] [address] from Last 3 Months Immunizations Immunization Administration Dates Next Due Influenza, Trivalent, IM (MDV) 11/27/2011,2010,12/11/2008 Pneumococcal Polysaccharide PPV23 11/27/2011 TD Preservative Free 10/04/2012 Surgical History Surgery Date Site/Laterality Comments OTHER SURGICAL HISTORY 02 - cards: Dr Elizabeth OTHER SURGICAL HISTORY Left Hearing Loss: Aid OTHER SURGICAL HISTORY Porcine Aortic valve replacement 2007: declined cardiology, echo f/u; dr coko OTHER SURGICAL HISTORY Heart valve IR INJECTION ARTHROGRAM SI JOINT LEFT INCLUDES IMAGING GUIDANCE 06/14/2022 Left Medical History Medical History Date Comments Hx 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 Hx Other Medical chronic rhiniti s Hx Other Medical Prehypertension Urticaria Urticaria Hx Other Medical 02 - cards Hx Other Medical Left Hearing Lo ss Hx Other Medical Porcine Aortic valve replacement 2007 Arthritis Low back pain Family History Medical History Relation Name Comments Other Father ; Cause of : /Aortic Valve Disease; Dementia Mother Dementia; Other Mother ; Alzheimer's disease Other 1 Family h istory of Alzheimer's Disease; Osteoarthritis Other 2 Family histor y of Osteoarthritis; Other Son pacer placed; Relation Name Status Comments Father (Age 80) Mother Alive Other 1 Other 2 Son Social History Tobacco Use Types Packs/Day Years [...] materials from doctor or pharmacy Sometimes 06/07/2023 [facility] Utilities Answer Date Recorded In the [...] 05/10/2023 How often do you attend chur ch or lutheran services? More than 4 times per year 05/10/2023 Do you belong to any clubs o r organizations such as hinduism groups, unions, fraternal or athletic groups, or [...] place to sleep or slept in a residential (including now)? No 05/10/2023 Personal Safety Answer Date Recorded Have you ever been in or are you currently in a harmful physical or emotional relationship or is someone making you feel afraid or unsafe? Denies 05/09/2023 Comments No Sex and Gender Information Value Date Recorded Sex Assigned at Not on file Legal Sex Female 6:40 PM VP SECURITY Gender Identity Not on file Sexual Orientation Not on file Obstetrics History Last Filed Vital Signs Vital Sign Reading Time Taken Comments Blood Pressure 110/68 04/10/2024 10:41 AM VP SECURITY Pulse 70 04/10/2024 10:41 AM VP SECURITY Temperature 36.3 C (97.4 F) 08/17/2023 12:45 PM CDT Respiratory Rate 16 04/10/2024 10:41 AM VP SECURITY Oxygen Saturation 97% 04/10/2024 10:41 AM VP SECURITY Inhaled Oxygen Concentration - - Weight 59 kg (130 lb) 03/13/2024 9:58 AM VP SECURITY Height 157.5 cm (5' 2 ) 03/13/2024 9:58 AM VP SECURITY Body Mass Index 23.78 03/13/2024 9:58 AM VP SECURITY Plan of Treatment Health Maintenance Due Date Last Done Comments Osteoporosis Screening-Bone Density Scan 1940 Hepatitis B Screening 05/30/1957 Zoster Vaccine (1 of 2) 05/30/1958 Well Visit 65+ 05/30/2004 DTaP/Tdap/Td Vaccine (1 - Tdap) 10/05/2012 3 Pneumococcal vaccine 65+ (2 of 2 - PCV) 11/26/2012 11/27/2011 Influenza Vaccine (#1) 2023 2, 11/25/2010, 12/11/2008 Fall Risk Assessment 05/17/2024 05/18/2023 Depression Screening 04/10/2025 04/10/2024, 04/10/2024, 10/23/2023, Additional history exists Procedures Procedure Name Priority Date/Time Associated Diagnosis Comments EGFR Routine 03/10/2024 8:42 AM VP SECURITY COMPREHENSIVE METABOLIC PANEL Routine 03/10/2024 8:42 AM VP SECURITY CRP (ACUTE PHASE) Routine 03/10/2024 8:4 2 AM VP SECURITY ERYTHROCYTE SEDIMENTATION RATE Routine 03/10/2024 8:42 AM VP SECURITY HEPATITIS PANEL, ACUTE Routine 8:42 AM VP SECURITY EGFR Routine 03/10/2024 8:39 AM VP SECURITY DIFFERENTIAL AUTO Routine 03/10/2024 8:3 9 AM VP SECURITY IRON PROFILE W/ IBC Routine 03/10/2024 8 :39 AM VP SECURITY PTH Routine 03/10/2024 8:39 AM VP SECURITY RENAL FUNCTION PANEL Routine 03/10/2024 8:39 AM VP SECURITY CBC WITH AUTO DIFFERENTIAL Routine 03/10/2024 8:39 AM VP SECURITY URINALYSIS AND REFLEX TO MICROSCOPIC AND CULTURE Routine 03/10/2024 8:39 AM VP SECURITY from Last 3 Months Results * (ABNORMAL) eGFR (03/10/2024 8:42 AM VP SECURITY) eGFR 28(L) >=60 mL/min/1. 73 m2 Comment: [...] was last reviewed 2020. Testing performed by: [address] [address] Blood 03/10/2024 8:42 AM VP SECURITY 03/10/2024 12:52 PM VP SECURITY Esdras Donovan MD LAB BLOOD ORDERABLES Nakia lynn Result [facility] ([place]) 1 [facility] [place] [address] * Hepatitis panel, acute Blood (03/10/2024 8:42 AM VP SECURITY) Hep A IgM Nonreactive Nonreactive Comment: Interpretive Data: If Hep A IgM Ab is reported as Equivocal, a new sample should be drawn in two weeks for testing. Current interpretive data was last revised on 19. Testing performed by: [address] [address] Hep B core IgM Nonreactive Nonreactive [facility] ([place]) Comment: Interpretive Data If HepB Core IgM Ab is reported as Equivocal, a new sample should be drawn in two weeks for testing. Current interpretive data was last revised on 19. Testing performed by: [address] [address] Hep C Ab Nonreactive Nonreactive [facility] ([place]) Comment: Interpretive Data Nonreactive: Antibodies to [...] last revised on 2019. Testing performed by: [facility], [address] [place] [address]., [address] HepBsAg Nonreactive Nonreactive [facility] ([place]) Comment:Testing performed by : [address] [address] Blood 03/10/2024 8:42 AM VP SECURITY 03/10/2024 8:42 AM VP SECURITY Esdras Donovan MD LAB MICROBIOLOGY - GENERA L ORDERABLES Final Result Performing Organization Address [facility]/ZIP Co de Phone Number [facility] ([place]) [address] [place] [address] [place] [address] * (ABNORMAL) Erythrocyte sedimentation rate (03/10/2024 8:42 AM VP SECURITY) Erythrocyte sedimentation rate 44(H) 1 - 30 mm/hr Comment:Testing performed by : [facility], [address] [place] [address], [address] Blood 03/10/2024 8:42 AM VP SECURITY 03/10/2024 8:42 AM VP SECURITY Result [facility] Esdras Donovan MD LAB BLOOD ORDERABLES Nakia l Result Performing Organization Address [facility] Co de Phone Number [facility] ([place]) 1 [facility] [place] [address] * (ABNORMAL) CRP (acute phase) (03/10/2024 8:42 AM VP SECURITY) CRP 14.4(H) <=10.0 mg/L Comment:Testing performed by : [address] [address] Blood 03/10/2024 8:42 AM VP SECURITY 03/10/2024 8:42 AM VP SECURITY Esdras Donovan MD LAB BLOOD ORDERABLES Nakia l Result [facility] ([place]) 1 [facility] Department [place] [address] * (ABNORMAL) Comprehensive metabolic panel (03/10/2024 8:42 AM VP SECURITY) Sodium 139 135 - 145 mmol/L Comment:Testing performed by : [facility], [address] [place] [address]., [address] Potassium, pl 4.1 3.3 - 4.9 mmol/L [facility] ([place]) Comment:Testing performed by : [facility], [address] [place] [address], [address] Chloride 101 97 - 110 mmol/L [facility] ([place]) Comment:Testing performed by : [facility], [address] [place] [address], [address] CO2 27 22 - 32 mmol/L [facility] ([place]) Comment:Testing performed by : [address], [address] Anion gap 11 2 - 15 mmol/L [facility] ([place]) Comment:Testing performed by : [facility], [address] [place] [address], [address] BUN 49(H) 6 - 25 mg/dL [facility] ([place]) Comment:Testing performed by : [address] [address] Creatinine 1.75(H) 0.60 - 1.10 mg/dL [facility] ([place]) Comment:Testing performed by : [address], [address] Glucose 101 70 - 199 mg/dL [facility] ([place]) Comment: Interpretive Data Fasting glucose [...] was last revised 2022. Testing performed by: [facility], [address] [place] [address], [address] Calcium 9.3 8.5 - 10.3 mg/dL [facility] ([place]) Comment:Testing performed by : [address] [address] Bilirubin, total 0.2 0.1 - 1.2 mg/dL [facility] ([place]) Comment:Testing performed by : [facility], [address] [place] [address], [address] Protein, pl 6.8 6.5 - 8.5 g/dL [facility] ([place]) Comment:Testing performed by : [facility], [address] [place] [address], [address] Albumin 3.7 3.5 - 5.0 g/dL [facility] ([place]) Comment:Testing performed by : [address], [address] Alk phos 182(H) 40 - 130 Units/L [facility] ([place]) Comment:Testing performed by : [address], [address] ALT 11 7 - 45 Units/L [facility] ([place]) Comment:Testing performed by : [address], [address] AST 22 10 - 45 Units/L [facility] ([place]) Comment:Testing performed by : [address], [address] Blood 03/10/2024 8:42 AM VP SECURITY 03/10/2024 8:42 AM VP SECURITY Esdras Donovan MD LAB BLOOD ORDERABLES Nakia lynn Result [facility] ([place]) 1 [facility] Department [place] [address] * (ABNORMAL) eGFR (03/10/2024 8:39 AM VP SECURITY) eGFR 29(L) >=60 mL/min/1. 73 m2 Comment: [...] was last reviewed 2020. Testing performed by: [address] [address] Blood 03/10/2024 8:39 AM VP SECURITY 03/10/2024 12:52 PM VP SECURITY us Antwan Keller MD LAB BLOOD ORDERABLES Final Re sult [facility] ([place]) 1 [facility] Department [place] [address] * Differential, auto (03/10/2024 8:39 AM VP SECURITY) Neutrophil abs 2.7 1.5 - 6.5 K/cumm Comment:Testing performed by : [address] [address] Imm gran abs 0.0 0.0 - 0.1 K/cumm [facility] ([place]) Comment:Testing performed by : [address] [address] Lymphocyte abs 1.1 0.8 - 3.3 K/cumm [facility] ([place]) Comment:Testing performed by : [address] [address] Monocyte abs 0.5 0.2 - 0.8 K/cumm [facility] ([place]) Comment:Testing performed by : [address] [address] Eosinophil abs 0.2 0.0 - 0.5 K/cumm [facility] ([place]) Comment:Testing performed by : [facility], [address] [place] [address]., [address] Basophil abs 0.0 0.0 - 0.1 K/cumm [facility] ([place]) Comment:Testing performed by : [facility], [address] [place] [address]., [address] Neutrophil pct 58.8 % [facility] ([place]) Comment: Interpretive Data Percent cell count reference ranges are not reported, since discordance with absolute values may lead to misinterpretation of CBC data. Current Interpretive Data was last revised on 2017. Testing performed by: [facility], [address] [place] [address]., [address] Imm gran pct 0.2 % [facility] ([place]) Comment: Interpretive Data Percent cell count reference ranges are not reported, since discordance with absolute values may lead to misinterpretation of CBC data. Current Interpretive Data was last revised on 2017. Testing performed by: [facility], [address] [place] [address]., [address] Lymphocyte pct 24.3 % [facility] ([place]) Comment: Interpretive Data Percent cell count reference ranges are not reported, since discordance with absolute values may lead to misinterpretation of CBC data. Current Interpretive Data was last revised on 2017. Testing performed by: [facility], [address] [place] [address]., [address] Monocyte pct 11.3 % [facility] ([place]) Comment: Interpretive Data Percent cell count reference ranges are not reported, since discordance with absolute values may lead to misinterpretation of CBC data. Current Interpretive Data was last revised on 2017. Testing performed by: [address] [address] Eosinophil pct 5.0 % [facility] ([place]) Comment: Interpretive Data Percent cell count reference ranges are not reported, since discordance with absolute values may lead to misinterpretation of CBC data. Current Interpretive Data was last revised on 2017. Testing performed by: [address] [address] Basophil pct 0.4 % [facility] ([place]) Comment: Interpretive Data Percent cell count reference ranges are not reported, since discordance with absolute values may lead to misinterpretation of CBC data. Current Interpretive Data was last revised on 2017. Testing performed by: [facility], [address] [place] [address], [address] Blood 03/10/2024 8:39 AM VP SECURITY 03/10/2024 8:39 AM VP SECURITY Antwan Keller MD LAB BLOOD ORDERABLES Final Re sult Performing Organization Address [facility] Co de Phone Number [facility] ([place]) 1 [facility] [place] [address] * (ABNORMAL) Iron profile w/ IBC (03/10/2024 8:39 AM VP SECURITY) Iron 51 35 - 145 mcg/dl Comment:Testing performed by : [facility], [address] [place] [address], [address] TIBC 281 250 - 400 mcg/dL [facility] ([place]) Comment:Testing performed by : [facility], [address] [place] [address], [address] Transferrin saturation 18(L) 20 - 50 % [facility] ([place]) Comment:Testing performed by : [facility], [address] [place] [address], [address] Blood 03/10/2024 8:39 AM VP SECURITY 03/10/2024 8:39 AM VP SECURITY Antwan Keller MD LAB BLOOD ORDERABLES Final Re sult Performing Organization Address [facility] Co de Phone Number [facility] ([place]) 1 [facility] [place] [employer] [place] [address] * Urinalysis reflex to microscopic and culture Urine, clean voided (03/10/2024 8:39 AM VP SECURITY) Color, ur Yellow Yellow Comment:Testing performed by : [address], [address] Clarity, ur Clear Clear [facility] ([place]) Comment:Testing performed by : [address] [address] Specific gravity, ur 1.011 1.003 - 1.030 [facility] ([place]) Comment:Testing performed by : [address], [address] pH, urine 6.5 [facility] ([place]) Comment: Interpretive Data U rine pH is affected by diet, medications, systemic acid-base disturbances, and renal tubular function. pH may affect urinary stone formation. For example, urine pH below 6.0 may help reduce the tendency for calcium phosphate stones and pH greater than 6.0 may reduce the tendency for uric acid stone formation. Source: [facility] [employer] Current Interpretive Data was last revised on 2017 Testing performed by: [address] [address] Protein, ur ql Negative Negative [facility] ([place]) Comment:Testing performed by : [address], [address] Glucose, ur ql Negative Negative [facility] ([place]) Comment:Testing performed by : [address], [address] Ketones, ur Negative Negative [facility] ([place]) Comment:Testing performed by : [address] [address] Bilirubin, ur Negative Negative [facility] ([place]) Comment:Testing performed by : [address], [address] Blood, ur Negative Negative [facility] ([place]) Comment:Testing performed by : [address], [address] Urobilinogen, ur <2.0 <2.0 mg/dL [facility] ([place]) Comment:Testing performed by : [address], [address] Nitrite, ur Negative Negative [facility] A ([place]) Comment:Testing performed by : [address], [address] Leukocyte esterase, ur Negative Negative [facility] ([place]) Comment:Testing performed by : [address], [address] UA reflex comment Reflex conditions for microscopic UA and culture not met. [facility] ([place]) Comment:Testing performed by : [facility], [address] [place] [address], [address] Urine, clean voided 03/10/2024 8:39 AM VP SECURITY 03/10/2024 8:40 AM VP SECURITY Antwan Keller MD LAB MICROBIOLOGY - GENERAL OR DERABLES Final Result [facility] ([place]) 1 [facility] Department [place] [address] * (ABNORMAL) CBC with auto differential (03/10/2024 8:39 AM VP SECURITY) WBC 4.6 3.8 - 9.9 K/cumm Comment:Testing performed by : [address], [address] Hgb 9.8(L) 11.9 - 15.5 g/dL [facility] ([place]) Comment:Testing performed by : [address], [address] Hct 32.7(L) 35.6 - 45.5 % [facility] ([place]) Comment:Testing performed by : [facility], [address] [place] [address], [address] Plt 212 150 - 400 K/cumm [facility] ([place]) Comment:Testing performed by : [address], [address] MPV 11.1 9.1 - 12.3 fL [facility] ([place]) Comment:Testing performed by : [address], [address] RBC 3.60(L) 3.90 - 5.20 M/cumm [facility] ([place]) Comment:Testing performed by : [address], [address] MCV 90.8 81.3 - 96.4 fL [facility] ([place]) Comment:Testing performed by : [facility], [address], [place]., [address] MCH 27.2 27.1 - 33.3 pg [facility] ([place]) Comment:Testing performed by : [facility], [address] [place] [address], [address] MCHC 30.0(L) 32.3 - 35.7 g/dL [facility] ([place]) Comment:Testing performed by : [facility], [address] [place] [address], [address] RDW CV 14.2 11.1 - 14.9 % [facility] ([place]) Comment:Testing performed by : [facility], [address] [place] [address], [address] RDW SD 47.3 35.7 - 48.1 fL [facility] ([place]) Comment:Testing performed by : [facility], [address] [place] [address], [address] NRBC abs 0.00 0.00 - 0.01 K/cumm [facility] ([place]) Comment:Testing performed by : [facility], [address] [place] [address], [address] Blood 03/10/2024 8:39 AM VP SECURITY 03/10/2024 8:39 AM VP SECURITY Antwan Keller MD LAB BLOOD ORDERABLES Final Re sult [facility] ([place]) 1 [facility] [employer] [place] [address] * (ABNORMAL) PTH (03/10/2024 8:39 AM VP SECURITY) PTH 199(H) 15 - 65 pg/mL Comment:Testing performed by : [facility], [address] [place] [address], [address] Blood 03/10/2024 8:39 AM VP SECURITY 03/10/2024 8:39 AM VP SECURITY Anwtan Keller MD LAB BLOOD ORDERABLES Final Re sult [facility] ([place]) 1 [facility] [place] [address] * (ABNORMAL) Renal function panel (03/10/2024 8:39 AM VP SECURITY) Sodium 138 135 - 145 mmol/L Comment:Testing performed by : [address] [address] Potassium, pl 4.1 3.3 - 4.9 mmol/L [facility] ([place]) Comment:Testing performed by : [facility], [address] [place] [address], [address] Chloride 100 97 - 110 mmol/L [facility] ([place]) Comment:Testing performed by : [address], [address] CO2 27 22 - 32 mmol/L [facility] ([place]) Comment:Testing performed by : [address], [address] Anion gap 11 2 - 15 mmol/L [facility] ([place]) Comment:Testing performed by : [address], [address] BUN 51(H) 6 - 25 mg/dL [facility] ([place]) Comment:Testing performed by : [address], [address] Creatinine 1.71(H) 0.60 - 1.10 mg/dL [facility] ([place]) Comment:Testing performed by : [address], [address] Glucose 99 70 - 199 mg/dL [facility] ([place]) [...] was last revised 2022. Testing performed by: [address], [address] Calcium 9.2 8.5 - 10.3 mg/dL [facility] ([place]) Comment:Testing performed by : [facility], [address] [place] [address]., [address] Phosphorus, pl 3.4 2.3 - 4.5 mg/dL [facility] ([place]) Comment:Testing performed by : [facility], [address] [place] [address]., [address] Albumin 3.7 3.5 - 5.0 g/dL [facility] ([place]) Comment:Testing performed by : [facility], [address] [place] [address]., [address] Blood 03/10/2024 8:39 AM VP SECURITY 03/10/2024 8:39 AM VP SECURITY Antwan Keller MD LAB BLOOD ORDERABLES Final Re sult [facility] ([place]) 1 [facility] [place] [address] from Last 3 Months Insurance MEDIC[facility] Address: [facility] [address] [place] [address] [facility] Advance Directives For more information, please contact: [phone] * Full Code (Latest Code Status on File) Date Activated Date Inactivated Comments 05/09/2023 9:56 PM 05/18/2023 12:32 PM Care Teams Senior Policy Associate Relationship Specialty Start Date End Date Esdras Donovan MD [address] [facility] [address] [place] [address] PCP - General 09/05/16 Ajit Rivero MD [address] [facility] [address] [place] [address] Consulting Physician Cardiovascular Disease 05/18/23 Antwan Keller MD [address] [facility] [place] [address] Consulting Physician Nephrology 05/18/23 Slim Corado MD [address] [facility] [place] [address] Consulting Physician Pulmonary Disease 05/18/23
[2024-04-14 13:36] LABS: EDCOVIDSCREEN Negative (Negative); EDINFLUASCREEN Negative (Negative); EDINFLUBSCREEN Negative (Negative)
== END 2024-04-14 12:50 | disposition home or self-care (01) ==
PROVIDERS: Emergency Provider Registered Nurse; PCP Family Medicine
DX: J06.9 Acute upper respiratory infection, unspecified (principal); R05.9 Cough, unspecified; Z20.822 Contact with and (suspected) exposure to COVID-19; I10 Essential (primary) hypertension; M06.9 Rheumatoid arthritis, unspecified; Z87.891 Personal history of nicotine dependence
CPT/HCPCS: 71046; 87426; 87804; 99213; G0463

== ENCOUNTER 2024-07-02 10:55 | Emergency (ER) | payer MEDICARE, SELFPAY ==
--- NOTE | ~2024-07-02 | XR_ITS ---
XR chest 2V Ordering provider: Abelino Enriquez APRN History: 84 years Female with . cough, chills, crackles for 2 days, HX valve replacement . Comparison: April 14, 2024 FINDINGS: MEDIASTINUM: The cardiac silhouette is not enlarged. LUNGS: No , effusions or pneumothorax. Vague opacity in the right perihilar area which may be a nodul e or artifactual is noted. Further evaluation advised. OTHER: No free air under the diaphragm. IMPRESSION: Possible vague opacity in the right perihilar area. Further evaluation advised. Reviewed, dictated and finalized at location A.
[2024-07-02 11:01] VITALS: BP 145/66; PULSE 83; RESP 18; TEMP 36.8; O2SAT 100
--- NOTE | 2024-07-02 11:19 | ED_ITS ---
HPI - URI/Sore Throat General Chief Complaint: Upper Respiratory Infection Stated Complaint: cold symptoms Time Seen by Provider: 07/02/24 11:10 Source: patient and RN notes reviewed Mode of arrival: ambulatory Limitations: no limitations History of Present Illness HPI Narrative: 84-year-old female presents Express Care complaining of cough, congestion, malaise for 2 days. Patient reports having a productive cough and coughing up yellow and green sputum. Patient denies any sore throat, earache, headache, fevers, chest pain, or shortness of breath. Patient has been taking Benadryl home for symptoms with some relief. Patient denies any significant past medical history. Related Data Home Medications ?Medication ?Instructions ?Recorded ?Confirmed ?Last Taken ?Type aspirin 81 mg tablet,delayed 81 mg PO DAILY 10/26/19 07/02/24 Unknown History release hydrochlorothiazide 25 mg tablet 25 mg PO DAILY 10/26/19 07/02/24 Unknown Histo ry leflunomide 20 mg tablet 20 mg PO DAILY 10/26/19 07/02/24 Unknown History cyanocobalamin (vitamin B-12) 500 500 mcg PO DAILY 05/05/23 07/02/24 Unknown History mcg tablet gabapentin 100 mg capsule 100 mg PO TID 05/05/23 07/02/24 Unknown History tramadol 50 mg tablet 50 mg PO QID PRN Pain 05/05/23 07/02/24 Unknown History carvedilol 3.125 mg tablet mg 04/14/24 Unknown History Allergies Allergy/AdvReac Type Severity Reaction Status Date / Time No Known Allergies Allergy Verified 07/02/24 11:08 Review of Systems Review of Systems: CONSTITUTIONAL: Denies fever, or sweats. Positive for chills and malaise. EYES: Denies visual changes, redness, or discharge. ENT: Denies rhinorrhea, or otalgia. Positive for congestion and sore throat. CARDIOVASCULAR: Denies chest pain, palpitations, or edema. RESPIRATORY: Positive for cough, negative for dyspnea. GASTROINTESTINAL: Denies abdominal pain, nausea, vomiting, or diarrhea. GENITOURINARY: Denies dysuria or hematuria. SKIN: Denies rash or itching. MUSCULOSKELETAL: Denies back pain, joint pain, or myalgia. NEUROLOGIC: Denies headache, numbness, or weakness. PSYCHIATRIC: Denies anxiety or depression. All other systems reviewed are negative, except as documented in HPI. [facility] Past Medical History Medical History Rheumatoid arthritis Chronic anticoagulation HTN (hypertension) Surgical History Surgical History Heart valve replaced Family History Family History Other Diabetes mellitus Social History Social History Smoking status: Former smoker Alcohol intake: never Living arrangements: alone Occupation/Education: retired Gender identity (if verbalized by the patient): Female Comments At the time of my signature, I reviewed and agree with the nursing past medical, surgical, social, and family history. There is no relevant family history pertinent to the patient complaint. Exam Narrative: GENERAL: This is a well-nourished, well-developed adult, in no apparent distress. They are non ill-appearing, nontoxic appearing. HEAD: normocephalic, atraumatic. EYES: Sclera clear/white. Conjunctiva normal. Vision is grossly intact. Extraocular movements intact EARS: External ears normal, auditory canals clear and without drainage, TMs normal without perforation. Hearing grossly intact. NOSE: External nose normal with no obvious nasal discharge, nasal turbinates are erythematous bilaterally, no rhinorrhea. THROAT: Mucous membranes moist, posterior pharynx without erythema or swelling. Postnasal drip present. Uvula midline. NECK: Neck supple, non-tender without lymphadenopathy, masses or thyromegaly. CARDIOVASCULAR: Regular rate and rhythm without murmurs, gallops, or rubs. RESPIRATORY: Crackles present to the right lower lobe. Left lung sounds are clear to auscultation. Breath sounds equal bilaterally. No wheezes or rhonchi. Respiratory rate normal, respiratory effort nonlabored, no respiratory distress SKIN: warm, Dry, intact with no suspicious lesions or rash, good texture and turgor. NEURO: awake, alert, and oriented to person, place and time. There were no obvious focal neurologic abnormalities. EXTREMITIES: No joint tenderness, effusion, or edema noted. BACK: Nontender without deformity. Course Course Emergency Course: Portions of this record may have been created with voice recognition software Level of Care: Express Care Visit Vital Signs Vital signs: Vital Signs Temperature 98.2 F 07/02/24 11:01 Pulse Rate 83 07/02/24 11:01 Respiratory Rate 18 07/02/24 11:01 Blood Pressure 145/66 H 07/02/24 11:01 Pulse Oximetry 100 07/02/24 11:01 Oxygen Delivery Room Air 07/02/24 11:01 Temperature 98.2 F 07/02/24 11:01 Pulse Rate 83 07/02/24 11:01 Respiratory Rate 18 07/02/24 11:01 Blood Pressure 145/66 H 07/02/24 11:01 Pulse Oximetry 100 07/02/24 11:01 Oxygen Delivery Room Air 07/02/24 11:01 Reviewed MDM - URI/Sore Throat MDM Narrative Medical decision making narrative: Rapid COVID and flu negative. Chest x-ray shows vague opacity in the right perihilar area, cannot exclude pulmonary nodule. Patient's symptoms clinically are consistent with community-acquired pneumonia. Will treat empirically with Augmentin and azithromycin. Advised patient to follow-up with her primary care provider about her possible pulmonary nodule. Discussed physical exam findings. Advised supportive measures and signs/symptoms to go to the ER. Pt is appropriate for outpt treatment and f/u. Differential Diagnosis Differential diagnosis: Likely upper respiratory infection, viral infection and other (Pneumonia) Lab Data Attestation: I reviewed the patient's lab results. Labs: Lab Results 07/02/24 Range/Units 11:05 POC Influenza A Ag Negative (Negative) POC Influenza B Ag Negative (Negative) POC SARS CoV-2 Ag Negative (Negative) Imaging Data Radiologist's impression: ITS Impressions Chest X-Ray 07/02/24 11:32 IMPRESSION: Possible vague opacity in the right perihilar area. Further evaluation advised. Critical Care Time Critical Care Time Critical Care Time: No Discharge Plan Discharge Clinical Impression: Pneumonia Qualifiers: Pneumonia type: due to unspecified organism Laterality: unspecified laterality Lung location: unspecified part of lung Qualified Code(s): J18.9 - Pneumonia, unspecified organism Patient Disposition: Home Condition: Stable Instructions: Antibiotic Form, Community Acquired Pneumonia (ED) Additional Instructions: Your flu and COVID were negative. Your x-ray showed evidence of pneumonia and possible lung nodule. Please follow-up with her primary care provider for further evaluation of your possible lung nodule. Please take the antibiotics as directed and complete the course even if you start to feel better. You may take Zyrtec or Claritin daily for congestion. Take Flonase daily 2 sprays into each nostril daily. You may take Tylenol as needed for pain or fevers. Please follow-up with your primary care provider in 3-5 days. He developed worsening symptoms, fevers, chest pain, shortness of breath please go to the ER immediately. Patient Language: Sri [place]an Prescriptions: New amoxicillin-pot clavulanate 875-125 mg tablet 1 tablet PO Q12H 5 Days Qty: 10 0RF azithromycin 250 mg tablet See Rx Instructions .ROUTE .COMPLEX Qty: 6 0RF Rx Instructions: For 250 mg dose pack: take 500 mg today (day 1), then 250 mg for 4 days (days 2-5) No Action gabapentin 100 mg capsule 100 mg PO TID tramadol 50 mg tablet 50 mg PO QID PRN (Reason: Pain) cyanocobalamin (vitamin B-12) 500 mcg tablet 500 mcg PO DAILY carvedilol 3.125 mg tablet aspirin 81 mg Tablet,Delayed Release (Dr/Ec) 81 mg PO DAILY leflunomide 20 mg Tablet 20 mg PO DAILY hydrochlorothiazide 25 mg Tablet 25 mg PO DAILY (DME) BreatheRite Spacer-Mask,Adult Spacer See Rx Instructions .Route Qty: 1 0RF Rx Instructions: As directed Follow-up/Referrals: UNKNOWN,DOCTOR [Primary Care Provider] - Time of Disposition: 11:49
[2024-07-02 11:26] LABS: EDCOVIDSCREEN Negative (Negative); EDINFLUASCREEN Negative (Negative); EDINFLUBSCREEN Negative (Negative)
--- OUTSIDE RECORDS SUMMARY | 2024-07-02 11:48 | XMS_ITS | Encounter Summary ---
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 Gender Identity Not on file Sexual Orientation Not on file documented as of this encounter Plan of Treatment Not on file documented as of this encounter Visit Diagnoses Not on filedocumented in this encounter Additional Health Concerns Infection Onset Date Last Indicated Resolved Time COVID: Suspected 05/05/2023 05/05/2023 05/05/2023 10:15 PM CHIEF TECHNICIAN documented as of this encounter Care Teams Livestock Inspector Relationship Specialty Start Date End Date Esdras Donovan MD [address] [facility] [address] [place] [address] PCP - General 09/05/16 Ajit Rivero MD [address] [facility] [address] [place] [address] Consulting Physician Cardiovascular Disease 05/18/23 Antwan Keller MD [address] [facility] [address] [place] [address] Consulting Physician Nephrology 05/18/23 Slim Corado MD [address] [facility] [address] [place] [address] Consulting Physician Pulmonary Disease 05/18/23 documented as of this encounter
--- OUTSIDE RECORDS SUMMARY | 2024-07-02 11:48 | XMS_ITS | Encounter Summary ---
Author Organization [facility] Address [address] [facility] [place] [address] Phone Care Team Providers Care Silk Worker Name Role Phone Esdras Donovan MD Primary Care Provider [phone] Murray Saab MD Unavailable Unavailabl e Geronimo Coe MD Unavailable [phone] Ravi Tanner PAC Unavailable [phone] Reason for Visit * Reason Comments Medication Refill Encounter Details Date Type Department Care Team (Late st Contact Info) Description 09/10/2022 Refill [facility] - Family Medicine [facility] [address] [place] [address] Esdras Donovan MD [address] [address] Medication Refill Social History Tobacco Use Types [...] Dept 07/26/22 [facility]dras [facility] MD [facility] 01/09/22 Office Visit Jono Maynard APRN, [facility] 12/22/21 Office Visit Jono Maynard APRN, [facility] 09/14/21 [facility] Showing recent visits within past 365 days and meeting all other requirements Future Appointments No visits were found meeting these conditions. Showing future appointments within next 90 days and meeting all other requirements Passed - Vitamin D dose not greater than 1.25mg documented in this encounter Plan of Treatment Upcoming Encounters Date Type Department Care Team (Late st Contact Info) Description 08/27/2024 10:45 AM CDT Office Visit [facility] - Family Medicine - [place] [address] [place] [address] Esdras Donovan MD [address] [address] documented as of this encounter Visit Diagnoses Not on filedocumented in this encounter Additional Health Concerns Assessment Noted Time PHQ-9 Depression Total Score: 0 04/02/19 20 8:40 AM TRIMMER OPERATOR documented as of this encounter Care Teams Silk Worker Relationship Specialty Start Date End Date Esdras Donovan MD [address] [address] PCP - General Family Medicine 09/06/16 Murray Saab MD [address] [address] Pain Medicine-Pain Management 09/06/16 Geronimo Coe MD [address] [address] Rheumatology 09/06/16 Ravi Tanner PAC [address] [place] [address] Physician Acid Cleaner Physician Acid Cleaner 12/20/23 documented as of this encounter
--- OUTSIDE RECORDS SUMMARY | 2024-07-02 11:48 | XMS_ITS | Referral Summary ---
Author Organization [facility] Address [address] [place] [address] Care Team Providers Care Accident Investigator Name Role Phone Esdras Donovan MD Primary Care Provider Ajit Rivero MD Unavailable [phone] Antwan Keller MD Unavailable [phone] Slim Corado MD Unavailable Encounters Date Type Department Care Team Description 06/19/2024 9:20 AM CDT Lab [facility] [address] [place] [address] 05/15/2024 8:44 AM CDT - 05/15/2024 11:59 PM CDT Hospital Encounter [facility] [address] [place] [address] A, [place] [address] Claritza Vargas NP Hayden, Andrew Michael, MD Sacroiliitis (Primary Dx); Degeneration of intervertebral disc of lumbar region with discogenic back pain Discharge Disposition: Discharge to home or self care 04/23/2024 11:02 AM METAL SPRAYER PRODUCTION - 04/23/2024 11:59 PM METAL SPRAYER PRODUCTION Hospital Encounter [facility] [address] [facility] [address], [place] [address] Keshav Le MD Sacroiliitis Discharge Disposition: Discharge to home or self care 04/10/2024 10:14 AM METAL SPRAYER PRODUCTION - 04/10/2024 11:59 PM METAL SPRAYER PRODUCTION Hospital Encounter [facility] [address] [place] [address] A, [address]. [address] [place] [address] Keshav Le MD Sacroiliitis (Primary Dx); Lumbar radiculopathy; DDD (degenerative disc disease), lumbar Discharge Disposition: Discharge to home or self care from Last 3 Months Allergies No known active allergies Medications aspirin 81 mg enteric coated tablet daily Active cholecalciferol (VITAMIN D-3) 1,000 unit capsule Take 1 capsule (1,000 Units total) by mouth daily 0 Active cyanocobalamin (Vitamin B-12) 500 mcg tablet TAKE 1 TABLET DAILY 0 Active leflunomide (ARAVA) 20 mg tabletIndications :hold at this time, discuss with rheumatology when it will be safe to resume 1 Active hydrOXYchloroQUIN E (PLAQUENIL) 200 mg tabletIndications :hold at this time, discuss with rheumatology when safe to resume 1 Active carvediloL (COREG) 3.125 mg tablet Take 1 tablet (3.125 mg total) by mouth 2 (two) times a day with meals 60 tablet 3 4 Active empagliflozin (JARDIANCE) 10 mg tabletIndications :Heart Failure Take 1 tablet (10 mg total) by mouth daily 30 tablet [address] (PROTONIX) 40 mg EC tabletIndications :Treatment of Non-Bleeding Gastric Disorder Take 1 tablet (40 mg total) by mouth daily 30 tablet 3 4 Active sacubitriL-valsar henry (ENTRESTO) 24-26 mg tabletIndications :chronic heart failure Take 1 tablet by mouth daily 30 tablet 3 4 Active amoxicillin-clavu lanate (AUGMENTIN) 875-125 mg per tablet Take 1 tablet by mouth every 12 (twelve) hours 4 Active fluticasone propionate (FLONASE) 50 mcg/actuation nasal spray Administer 1 spray into affected nostril(s) daily 3 Active albuterol HFA (PROVENTIL HFA,VENTOLIN HFA,PROAIR HFA) 90 mcg/actuation inhaler Inhale 2 puffs every 6 (six) hours as needed 4 Active midodrine (PROAMATINE) 10 mg tabletIndications :Symptomatic Orthostatic Hypotension Take 1 tablet (10 mg total) by mouth as needed (Use as needed) 5 03/13/19 26 Active gabapentin (NEURONTIN) 300 mg capsuleIndication s:Sacroiliitis,DD D (degenerative disc disease), lumbar Take 1 capsule (300 mg total) by mouth 3 (three) times a day 90 capsule 5 5 10/08/19 25 Active traMADoL (ULTRAM) 50 mg tabletIndications :Sacroiliitis,DDD (degenerative disc disease), lumbar Take 1 tablet (50 mg total) by mouth every 6 (six) hours as needed for pain 120 tablet 5 5 10/08/19 25 Active furosemide (LASIX) 40 mg tablet TAKE 1 TABLET(40 MG) BY MOUTH DAILY 30 tablet 3 5 Active Active Problems Problem Noted Date Diagnosed Date H/O aortic valve replacement 05/11/2023 Acute combined systolic and diastolic congestive heart failure 05/11/2023 Atrial fibrillation 05/11/2023 Acute renal failure with acu te tubular necrosis superimposed on stage 3a chronic kidney disease 05/11/2023 Ovarian mass 05/09/2023 Kidney lesion 05/09/2023 Lung mass 05/09/2023 Electrolyte abnormality 05/09/2023 WHITNEY (acute kidney injury) 05/09/2023 Degenerative lumbar spinal stenosis 04/21/2021 DDD (degenerative disc disease), lumbar 04/21/19 22 Rheumatoid arthritis involving multiple sites Lumbar radiculopathy 02/09/2021 Sacroiliitis 07/08/2020 Chronic left-sided [...] materials from doctor or pharmacy Sometimes 06/07/2023 [facility] Utilities Answer Date Recorded In the past 12 months has th e [employer], oil, or water [employer] threatened to shut off services in your [...] often do you attend chur ch or voodoo services? More than 4 times per year 05/10/2023 Do you belong to any clubs o r organizations such as buddhist groups, unions, fraternal or athletic groups, or [...] place to sleep or slept in a nursing home (including now)? No 05/10/2023 PHQ-9 Answer Date Recorded PHQ-9 Total Score 0 04/10/2024 Personal Safety Answer Date Recorded Have you ever been in or are you currently in a harmful physical or emotional relationship or is someone making you feel afraid or unsafe? Denies 05/09/2023 Comments No Sex and Gender Information Value Date Recorded Sex Assigned at Not on file Legal Sex Female 6:40 PM METAL SPRAYER PRODUCTION Gender Identity Not on file Sexual Orientation Not on file Last Filed Vital Signs Vital Sign Reading Time Taken Comments Blood Pressure 159/90 05/15/2024 9:01 AM CDT Pulse 68 05/15/2024 8:58 AM CDT Temperature 36.5 C (97.7 F) 04/23/2024 11:11 AM METAL SPRAYER PRODUCTION Respiratory Rate 18 05/15/2024 8:58 AM CDT Oxygen Saturation 100% 05/15/2024 8:58 AM CDT Inhaled Oxygen Concentration - - Weight 59 kg (130 lb) 03/13/2024 9:58 AM METAL SPRAYER PRODUCTION Height 157.5 cm (5' 2 ) 03/13/2024 9:58 AM METAL SPRAYER PRODUCTION Body Mass Index 23.78 03/13/2024 9:58 AM METAL SPRAYER PRODUCTION Plan of Treatment Not on file Procedures Procedure Name Priority Date/Time Associated Diagnosis Comments EGFR Routine 06/19/2024 9:24 AM CDT DIFFERENTIAL AUTO Routine 06/19/2024 9:2 4 AM CDT ERYTHROCYTE SEDIMENTATION RATE Routine 06/19/2024 9:24 AM CDT CRP (ACUTE PHASE) Routine 06/19/2024 9:2 4 AM CDT COMPREHENSIVE METABOLIC PANEL Routine 06/19/2024 9:24 AM CDT CBC WITH AUTO DIFFERENTIAL Routine 06/19/2024 9:24 AM CDT HEPATITIS PANEL, ACUTE Routine 06/19/2024 9:24 AM CDT PAIN MGMT IMAGING SI JOINT LEFT Schedule Routine, Read Routine (OP Routine) 04/23/2024 11:24 AM METAL SPRAYER PRODUCTION Sacroiliitis from Last 3 Months Results * (ABNORMAL) eGFR (06/19/2024 9:24 AM CDT) eGFR 32(L) >=60 mL/min/1. 73 m2 Comment: Interpretive Data [...] was last reviewed 2020. Testing performed by: [address] [address] Blood 06/19/2024 9:24 AM CDT 06/19/2024 12:54 PM CDT us Evangelina Coe MD LAB BLOOD ORDERABLES Final Resul t [facility] ([place]) 1 [facility] Department [place] [address] * Differential, auto (06/19/2024 9:24 AM CDT) Neutrophil abs 3.49 1.50 - 6.50 K/cumm Comment:Testing performed by : [address], [address] Imm gran abs 0.05 0.00 - 0.10 K/cumm [facility] ([place]) Comment:Testing performed by : [address] [address] Lymphocyte abs 0.93 0.80 - 3.30 K/cumm [facility] ([place]) Comment:Testing performed by : [address] [address] Monocyte abs 0.69 0.20 - 0.80 K/cumm [facility] ([place]) Comment:Testing performed by : [address] [address] Eosinophil abs 0.25 0.00 - 0.50 K/cumm [facility] ([place]) Comment:Testing performed by : [address] [address] Basophil abs 0.03 0.00 - 0.10 K/cumm [facility] ([place]) Comment:Testing performed by : [address] [address] Neutrophil pct 64.1 % [facility] ([place]) Comment: Interpretive Data Percent cell count reference ranges are not reported, since discordance with absolute values may lead to misinterpretation of CBC data. Current Interpretive Data was last revised on 2017. Testing performed by: [facility], [address] [place] [address]., [address] Imm gran pct 0.9 % [facility] ([place]) Comment: Interpretive Data Percent cell count reference ranges are not reported, since discordance with absolute values may lead to misinterpretation of CBC data. Current Interpretive Data was last revised on 2017. Testing performed by: [facility], [address] [place] [address]., [address] Lymphocyte pct 17.1 % [facility] ([place]) Comment: Interpretive Data Percent cell count reference ranges are not reported, since discordance with absolute values may lead to misinterpretation of CBC data. Current Interpretive Data was last revised on 2017. Testing performed by: [facility], [address] [place] [address]., [address] Monocyte pct 12.7 % [facility] ([place]) Comment: Interpretive Data Percent cell count reference ranges are not reported, since discordance with absolute values may lead to misinterpretation of CBC data. Current Interpretive Data was last revised on 2017. Testing performed by: [facility], [address] [place] [address]., [address] Eosinophil pct 4.6 % [facility] ([place]) Comment: Interpretive Data Percent cell count reference ranges are not reported, since discordance with absolute values may lead to misinterpretation of CBC data. Current Interpretive Data was last revised on 2017. Testing performed by: [address] [address] Basophil pct 0.6 % [facility] ([place]) Comment: Interpretive Data Percent cell count reference ranges are not reported, since discordance with absolute values may lead to misinterpretation of CBC data. Current Interpretive Data was last revised on 2017. Testing performed by: [address] [address] Blood 06/19/2024 9:24 AM CDT 06/19/2024 12:44 PM CDT Evangelina Coe MD LAB BLOOD ORDERABLES Final Resul t [facility] ([place]) 1 [facility] Department [place] [address] * (ABNORMAL) CBC with auto differential (06/19/2024 9:24 AM CDT) WBC 5.44 3.80 - 9.90 K/cumm Comment:Testing performed by : [address], [address] Hgb 11.6(L) 11.9 - 15.5 g/dL [facility] ([place]) Comment:Testing performed by : [address], [address] Hct 37.6 35.6 - 45.5 % [facility] ([place]) Comment:Testing performed by : [address], [address] Plt 216 150 - 400 K/cumm [facility] ([place]) Comment:Testing performed by : [address], [address] MPV 10.9 9.1 - 12.3 fL [facility] ([place]) Comment:Testing performed by : [address], [address] RBC 4.14 3.90 - 5.20 M/cumm [facility] ([place]) Comment:Testing performed by : [address], [address] MCV 90.8 81.3 - 96.4 fL [facility] ([place]) Comment:Testing performed by : [address], [address] MCH 28.0 27.1 - 33.3 pg [facility] ([place]) Comment:Testing performed by : [address], [address] MCHC 30.9(L) 32.3 - 35.7 g/dL [facility] ([place]) Comment:Testing performed by : [address], [address] RDW CV 15.6(H) 11.1 - 14.9 % [facility] ([place]) Comment:Testing performed by : [address] [address] RDW SD 51.8(H) 35.7 - 48.1 fL [facility] ([place]) Comment:Testing performed by : [address] [address] NRBC abs 0.00 0.00 - 0.01 K/cumm [facility] ([place]) Comment:Testing performed by : [facility], [address] [place] [address]., [address] Blood 06/19/2024 9:24 AM CDT 06/19/2024 12:44 PM CDT us Evangelina Coe MD LAB BLOOD ORDERABLES Final Resul t [facility] ([place]) 1 [facility] Department [place] [address] * Hepatitis panel, acute Blood (06/19/2024 9:24 AM CDT) Hep A IgM Nonreactive Nonreactive Comment: Interpretive Data: If Hep A IgM Ab is reported as Equivocal, a new sample should be drawn in two weeks for testing. Current interpretive data was last revised on 19. Testing performed by: [address] [address] Hep B core IgM Nonreactive Nonreactive Umang [facility] ([place]IST[place]) Comment: Interpretive Data If HepB Core IgM Ab is reported as Equivocal, a new sample should be drawn in two weeks for testing. Current interpretive data was last revised on 19. Testing performed by: [address] [address] Hep C Ab Nonreactive Nonreactive ABDIEL M[facility]S [...] last revised on 2019. Testing performed by: [facility], [address] [place] [address]., [address] HepBsAg Nonreactive Nonreactive [facility] ([place]) Comment:Testing performed by : [facility], [address] [place] [address]., [address] Blood 06/19/2024 9:24 AM CDT 06/19/2024 12:44 PM CDT Evangelina Coe MD LAB MICROBIOLOGY - GENERAL ORDER JAZMYN Final Result Performing Organization Address City/[facility]/ZIP Co de Phone Number ABDIEL PRASANNA ([place]) 1 [facility] [place] [address] * (ABNORMAL) Erythrocyte sedimentation rate (06/19/2024 9:24 AM CDT) Erythrocyte sedimentation rate 65(H) 1 - 30 mm/hr Blood 06/19/2024 9:24 AM CDT 06/19/2024 12:44 PM CDT us Evangelina Coe MD LAB BLOOD ORDERABLES Final Resul t Performing Organization Address [facility] de Phone Number [facility] ([place]) 1 [facility] [place] [address] * (ABNORMAL) CRP (acute phase) (06/19/2024 9:24 AM CDT) CRP 30.4(H) <=10.0 mg/L Comment:Testing performed by : [facility], [address] [place] [address], [place]., [address] Blood 06/19/2024 9:24 AM CDT 06/19/2024 12:44 PM CDT us Evangelina Coe MD LAB BLOOD ORDERABLES Final Resul t Performing Organization Address City/[facility] Co de Phone Number [facility] ([place]) 1 [facility] [place] [address] * (ABNORMAL) Comprehensive metabolic panel (06/19/2024 9:24 AM CDT) Sodium 137 135 - 145 mmol/L Comment:Testing performed by : [facility], [address] [place] [address]., [address] Potassium, pl 4.1 3.3 - 4.9 mmol/L [facility] ([place]) Comment:Testing performed by : [address], [address] Chloride 97 97 - 110 mmol/L [facility] ([place]) Comment:Testing performed by : [facility], [address] [place] [address], [address] CO2 27 22 - 32 mmol/L [facility] ([place]) Comment:Testing performed by : [address], [address] Anion gap 13 2 - 15 mmol/L [facility] ([place]) Comment:Testing performed by : [address], [address] BUN 36(H) 6 - 25 mg/dL [facility] ([place]) Comment:Testing performed by : [address], [address] Creatinine 1.59(H) 0.60 - 1.10 mg/dL [facility] ([place]) Comment:Testing performed by : [address], [address] Glucose 100 70 - 199 mg/dL [facility] ([place]) [...] was last revised 2022. Testing performed by: [address], [address] Calcium 9.6 8.5 - 10.3 mg/dL [facility] ([place]) Comment:Testing performed by : [facility], [address] [place] [address]., [address] Bilirubin, total 0.4 0.1 - 1.2 mg/dL [facility] ([place]) Comment:Testing performed by : [facility], [address] [place] [address], [address] Protein, pl 7.4 6.5 - 8.5 g/dL [facility] ([place]) Comment:Testing performed by : [facility], [address] [place] [address], [address] Albumin 3.9 3.5 - 5.0 g/dL [facility] ([place]) Comment:Testing performed by : [facility], [address] [place] [address], [address] Alk phos 149(H) 40 - 130 Units/L [facility] ([place]) Comment:Testing performed by : [facility], [address] [place] [address], [address] ALT 16 7 - 45 Units/L [facility] ([place]) Comment:Testing performed by : [facility], [address] [place] [address], [address] AST 31 10 - 45 Units/L [facility] ([place]) Comment:Testing performed by : [facility], [address] [place] [address], [address] Blood 06/19/2024 9:24 AM CDT 06/19/2024 12:44 PM CDT us Evangelina Coe MD LAB BLOOD ORDERABLES Final Resul t Performing Organization Address [facility] Phone Number ABDIEL [facility] 1 [facility] Department [place] [address] * Imaging SI Joint Injection Left ([id number]) (04/23/2024 11:24 AM METAL SPRAYER PRODUCTION) Narrative [facility] - 04/23/2024 11:24 AM METAL SPRAYER PRODUCTION The images from this study are not interpreted by Radiology. Please refer to the physician's procedure / OR operative note. us Keshav Le MD IMG PAIN MGMT PROCEDURE S Final Result Performing Organization Address City/[facility] Co de Phone Number [facility] from Last 3 Months Insurance MEDICARE [facility] MEDICARE [facility] Address: [address] [address] Advance Directives For more information, please contact: [phone] * Full Code (Latest Code Status on File) Date Activated Date Inactivated Comments 05/09/2023 9:56 PM 05/18/2023 12:32 PM Care Teams Accident Investigator Relationship Specialty Start Date End Date Esdras Donovan MD [address] [place] [address] PCP - General 09/05/16 Ajit Rivero MD [address] [place] [address] Consulting Physician Cardiovascular Disease 05/18/23 Antwan Keller MD 2 [facility] [address] [place] [address] Consulting Physician Nephrology 05/18/23 Slim Corado MD 4 [facility] [address] [place] [address] Consulting Physician Pulmonary Disease 05/18/23
--- OUTSIDE RECORDS SUMMARY | 2024-07-02 11:48 | XMS_ITS | Clinical Summary ---
Author Organization [facility] Address [address] [place] [address] Phone Care Team Providers Care Dining Car Conductor Name Role Phone Esdras Donovan MD Primary Care Provider [phone] Murray Saab MD Unavailable Unavailabl e Geronimo Coe MD Unavailable [phone] Ravi Tanner PAC Unavailable [phone] Allergies Active Allergy Reactions Criticality Noted Date [...] Active fluticasone (FLONASE) 50 MCG/ACT Suspension 1 [place] by Nasal route daily. Use in each [...] Active Problems Problem Noted Date Diagnosed Date Neuropathy 04/22/2024 Cardiomyopathy 12/19/2023 Dizziness 12/19/2023 Acute maxillary sinusitis [...] Encounters Date Type Department Care Team Description 04/22/2024 1:00 PM FINISH REPAIR WORKER Office Visit [facility] [place] [address] [place] [address] Esdras Donovan MD URI, acute (Primary Dx); Noncompliance; Neuropathy Discharge Disposition: Discharged to home or Selfcare 04/22/2024 Travel from Last 3 Months Immunizations Immunization Administration Dates Next Due Influenza Vaccine,unspecified Formulation 2011,11/25/2010,12/11/2008 Influenza, Seasonal, Injectable, Undefined 11/26,11/25/2010,12/11/2008 PNEUMONIA ADULT IM PPSV23 11/27/2011 Pneumococcal Vaccine Adult - 23 Valent 2 TD VACCINE 10/04/2012 Td (Adult) 10/04/2012 Td Vaccine (preservative free) 10/04/2012 Social History Tobacco Use Types Packs/Day Years Used Date Smoking Tobacco: Never Smokeless Tobacco: Never Tobacco Cessation:Counseling Given: Yes Alcohol Use Standard Drinks/Week Comments No 0 (1 standard drink = 0.6 oz pur e alcohol) [facility] Utilities Answer Date Recorded In the [...] and Family Not on file 11/08/2023 Attends [employer] Not on file 11/07 Active Member [...] Recorded Total Score - Questions 1-9 0 03/30 [facility] - Occupational Stress [...] Sign Reading Time Taken Comments Blood Pressure 110/70 04/22/2024 1:01 PM FINISH REPAIR WORKER Pulse 77 04/22/2024 1:01 PM FINISH REPAIR WORKER Temperature 36.9 C (98.5 F) 04/22/2024 1:01 PM FINISH REPAIR WORKER Respiratory Rate 16 01/22/2024 10:03 AM FINISH REPAIR WORKER Oxygen Saturation 96% 04/22/2024 1:01 PM FINISH REPAIR WORKER Inhaled Oxygen Concentration - - Weight 56.7 kg (125 lb) 04/22/2024 1:01 PM FINISH REPAIR WORKER Height 157.5 cm (5' 2 ) 04/22/2024 1:01 PM FINISH REPAIR WORKER Body Mass Index 22.86 04/22/2024 1:01 PM FINISH REPAIR WORKER Plan of Treatment Upcoming Encounters Date Type Department Care Team (Late st Contact Info) Description 08/27/2024 10:45 AM CDT [facility] [place] [address] Esdras Donovan MD [address] [address] Health Maintenance Due Date Last Done Comments DEXA Bone Density 1940 TdaP Immunization 1940 Zoster Immunization (1 of 2) 05/30/1989 Pneumococcal Immunization (50+ years) (3 of 3 - PCV) 11/26/2012 11/27/2011, 11/27/2011 Respiratory Syncytial Virus (RSV) Immunization (Adult) (1 - 1-dose 75+ series) 05/30/2014 SARS-COV-2 Immunization ( - 2023- season) 2023 Influenza Immunization (Season Ended) 2024 11/27/2011, 11/27/2011, 11/25/2010, Additional history exists Pneumococcal Immunization Combined Discontinued 11/27/2011, 11/27/2011 Hepatitis [...] Procedure Name Priority Date/Time Associated Diagnosis Comments HEPATITIS PANEL ACUTE (AHP) 03/10/2024 12:00 AM FINISH REPAIR WORKER from Last 3 Months or Most Recently Relevant to Health Maintenance Results * HEPATITIS PANEL ACUTE (AHP) (03/10/2024 12:00 AM FINISH REPAIR WORKER) 03/10/2024 us Provider Scan HEMATOLOGY ORDERABLES Final Resu lt SCAN from Last 3 Months or Most Recently Relevant to Health Maintenance Insurance SHARED chief media officer MEDICARE Care Teams Dining Car Conductor Relationship Specialty Start Date End Date Esdras Donovan MD [address] [address] PCP - General Family Medicine 09/06/16 Murray Saab MD [address] [address] Pain Medicine-Pain Management 09/06/16 Geronimo Coe MD #[address] [address] Rheumatology 09/06/16 Ravi Tanner PAC [address] [place] [address] Physician [place] Gold Attendant Physician [employer] Gold Attendant 12/20/23
--- OUTSIDE RECORDS SUMMARY | 2024-07-02 11:48 | XMS_ITS | Encounter Summary ---
Author Organization [facility] Address [address] [facility] [place] [address] Phone Care Team Providers Care Investigator Welfare Name Role Phone Esdras Donovan MD Primary Care Provider [phone] Murray Saab MD Unavailable Unavailabl e Geronimo Coe MD Unavailable [phone] Ravi Tanner PAC Unavailable [phone] Reason for Visit * Reason Comments Medication Refill Encounter Details Date Type Department Care Team (Late st Contact Info) Description 01/04/2021 [facility]ill [facility] [address] [place] [address] Esdras Donovan MD #[address] [address] Medication Refill Social History Tobacco Use Types [...] [facility] [place] [address] [place] [address] Esdras Donovan MD [address] [address] documented as of this encounter Visit Diagnoses Not on filedocumented in this encounter Additional Health Concerns Assessment Noted Time PHQ-9 Depression Total Score: 0 04/02/19 8:40 AM FARM OR RANCH ANIMAL CARETAKER documented as of this encounter Care Teams Investigator Welfare Relationship Specialty Start Date End Date Esdras Donovan MD [address] [address] PCP - General Family Medicine 09/06/16 Murray Saab MD [address] [place] [address] Pain Medicine-Pain Management 09/06/16 Geronimo Coe MD [address] [place] [address] Rheumatology 09/06/16 Ravi Tanner PAC [address]1 [place] [address] Physician Field Appraiser Physician Field Appraiser 12/20/23 documented as of this encounter
--- OUTSIDE RECORDS SUMMARY | 2024-07-02 11:48 | XMS_ITS | Encounter Summary ---
Author Organization [facility] Address [address] [place] [address] Phone Care Team Providers Care Assistant Shift Supervisor Name Role Phone Esdras Donovan MD Primary Care Provider [phone] Murray Saab MD Unavailable Unavailabl e Geronimo Coe MD Unavailable [phone] Ravi Tanner PAC Unavailable [phone] Reason for Visit * Reason Comments Medication Refill Encounter Details Date Type Department Care Team (Late st Contact Info) Description 09/22/2021 Refill [facility] [address] [place] [address] Esdras Donovan MD [address] [address] Medication Refill Social History Tobacco Use Types [...] Dept 09/14/21 Office Visit Esdras Donovan MD [facility] Crist[place] 12/31/20 Office Visit Esdras Donovan MD [facility] 09/30/20 Office Visit Jono Maynard APRN, CAGE LOADER [facility] Showing recent visits within past 365 days and meeting all other requirements Future Appointments Date Type Provider Dept 12/19/21 Appointment Esdras Donovan MD [facility] Crist[place] Showing future appointments within next 90 days and meeting all other requirements documented in this encounter Plan of Treatment Upcoming Encounters Date Type Department Care Team (Late st Contact Info) Description 08/27/2024 10:45 AM CDT Office Visit [facility] - Family Medicine - [place] [address] [facility] [place] [address] Esdras Donovan MD [address] [place] [address] documented as of this encounter Visit Diagnoses Not on filedocumented in this encounter Additional Health Concerns Assessment Noted Time PHQ-9 Depression Total Score: 0 04/02/19 20 8:40 AM ASW SPECIALIST documented as of this encounter Care Teams Assistant Shift Supervisor Relationship Specialty Start Date End Date Esdras Donovan MD #[address] [address] PCP - General Family Medicine 09/06/16 Murray Saab MD #[address] [address] Pain Medicine-Pain Management 09/06/16 Geronimo Coe MD #[address] [address] Rheumatology 09/06/16 Ravi Tanner PAC #1 [place] [address] Physician Epic Trainer Physician Epic Trainer 12/20/23 documented as of this encounter
--- OUTSIDE RECORDS SUMMARY | 2024-07-02 11:48 | XMS_ITS | Encounter Summary ---
Author Organization [facility] Address [address] [place] [address] Phone Care Team Providers Care Biomed Tech Name Role Phone Esdras Donovan MD Primary Care Provider [phone] Murray Saab MD Unavailable Unavailabl e Geronimo Coe MD Unavailable [phone] Ravi Tanner PAC Unavailable Reason for Visit * Reason Comments Medication Refill Encounter Details Date Type Department Care Team (Late st Contact Info) Description 03/13/2021 Refill [facility] [address] [place] [address] Esdras Donovan MD #[address] [address] Medication Refill Social History Tobacco Use Types [...] Dept 12/31/20 Office Visit Esdras Donovan MD [facility] 09/30/20 Office Visit Jono Maynard APRN, CNP [facility] 04/02/20 Office Visit Jono Maynard APRN, CNP [facility] Showing recent visits within past 365 days and meeting all other requirements Future Appointments No visits were found meeting these conditions. Showing future appointments within next 90 days and meeting all other requirements F THERAPIST documented in this encounter Plan of Treatment Upcoming Encounters Date Type Department Care Team (Late st Contact Info) Description 08/27/2024 10:45 AM CDT Office Visit [facility] - [place] [address] [place] [address] Esdras Donovan MD #[address] [address] documented as of this encounter Visit Diagnoses Not on filedocumented in this encounter Additional Health Concerns Assessment Noted Time PHQ-9 Depression Total Score: 0 04/02/19 20 8:40 AM STAFF THERAPIST documented as of this encounter Care Teams Biomed Tech Relationship Specialty Start Date End Date Esdras Donovan MD #[address] [address] PCP - General Family Medicine 09/06/16 Murray Saab MD #[address] [address] Pain Medicine-Pain Management 09/06/16 Geronimo Coe MD #[address] [address] Rheumatology 09/06/16 Ravi Tanner PAC [address] [place] [address] Physician C Architect Physician C Architect 12/20/23 documented as of this encounter
--- OUTSIDE RECORDS SUMMARY | 2024-07-02 11:48 | XMS_ITS | Encounter Summary ---
Author Organization [facility] Address [address] [facility] [place] [address] Phone Care Team Providers Care Cigarette Inspector Name Role Phone Esdras Donovan MD Primary Care Provider [phone] Murray Saab MD Unavailable Unavailabl e Geronimo Coe MD Unavailable [phone] Ravi Tanner PAC Unavailable Reason for Visit * Reason Comments Medication Refill Encounter Details Date Type Department Care Team (Late st Contact Info) Description 03/01/2023 Refill [facility] - Family Medicine [facility] [address]2 [place] [address] Esdras Donovan MD #[address] [address] Medication Refill Social History Tobacco Use Types [...] 90 days and meeting all other requirements CTOR PRISON documented in this encounter Plan of Treatment Upcoming Encounters Date Type Department Care Team (Late st Contact Info) Description 08/27/2024 10:45 AM CDT Office Visit [facility] - Family Medicine - [place] [address] [place] [address] Esdras Donovan MD #[address] [address] documented as of this encounter Visit Diagnoses Not on filedocumented in this encounter Additional Health Concerns Assessment Noted Time PHQ-9 Depression Total Score: 0 04/02/19 20 8:40 AM DIRECTOR PRISON documented as of this encounter Care Teams Cigarette Inspector Relationship Specialty Start Date End Date Esdras Donovan MD #[address] [address] PCP - General Family Medicine 09/06/16 Murray Saab MD #[address] [address] Pain Medicine-Pain Management 09/06/16 Geronimo Coe MD #[address] [address] Rheumatology 09/06/16 Ravi Tanner PAC [address]1 [place] [address] Physician Drum Dyeing Machine Operator Physician Drum Dyeing Machine Operator 12/20/23 documented as of this encounter
--- OUTSIDE RECORDS SUMMARY | 2024-07-02 11:48 | XMS_ITS | Encounter Summary ---
Author Organization [facility] Address [address] [facility] [place] [address] Phone Care Team Providers Care Pyrotechnic Mixer Name Role Phone Esdras Donovan MD Primary Care Provider [phone] Murray Saab MD Unavailable Unavailabl e Geronimo Coe MD Unavailable [phone] Ravi Tanner PAC Unavailable [phone] Reason for Visit * Reason Comments Medication Refill Encounter Details Date Type Department Care Team (Late st Contact Info) Description 03/16/2020 Refill [facility] [address]2 [place] [address] Esdras Donovan MD #[address] [address] Medication Refill Social History Tobacco Use Types [...] 5 months ago Hyperlipidemia, unspecified [facility] B12 deficiency [facility] Esdras Blackburn MD 1 year ago Vitamin D insufficiency [facility] Esdras Minor MD 1 year ago Vitamin D insufficiency [facility] Esdras Blackburn MD 2 years ago Hyperlipidemia, unspecified hyperlipidemia [facility] Upcoming Appointments Future Appointments In 2 weeks Jono Maynard APN, TAILOR GARMENT FITTER [facility] Vic Nash, [facility] RUBBER INSULATOR - Recent and Past Visits Recent Visits Date Type Provider Dept 10/01/19 Office Visit Esdras Donovan MD [facility] 04/02/19 Office Visit Esdras Donovan MD [facility] 12/24/18 Office Visit Esdras Donovan MD [facility] Showing recent visits within past 460 days with a meds authorizing provider and meeting all other requirements Future Appointments Date Type Provider Dept 04/02/20 Appointment Jono Maynard APN, TAILOR GARMENT FITTER [facility] Showing future appointments within next 90 days with a meds authorizing provider and meeting all other requirements BREAKER AND WIRE PULLER documented in this encounter Plan of Treatment Upcoming Encounters Date Type Department Care Team (Late st Contact Info) Description 08/27/2024 10:45 AM CDT [facility] [place] [address] Esdras Donovan MD #[address] [address] documented as of this encounter Visit Diagnoses Not on filedocumented in this encounter Additional Health Concerns Assessment Noted Time PHQ-9 Depression Total Score: 0 04/02/19 20 8:40 AM LUG BREAKER AND WIRE PULLER documented as of this encounter Care Teams Pyrotechnic Mixer Relationship Specialty Start Date End Date Esdras Donovan MD #[address] [address] PCP - General Family Medicine 09/06/16 Murray Saab MD #[address] [place] [address] Pain Medicine-Pain Management 09/06/16 Geronimo Coe MD #[address] [address] Rheumatology 09/06/16 Ravi Tanner PAC [address]1 [place] [address] Physician Plastic Jig And Fixture Builder Physician Plastic Jig And Fixture Builder 12/20/23 documented as of this encounter
--- OUTSIDE RECORDS SUMMARY | 2024-07-02 11:48 | XMS_ITS | Clinical Summary ---
Author Organization [facility] Address [address] [place] [address] Care Team Providers Care Permit Agent Name Role Phone Esdras Donovan MD Primary Care Provider [phone] Ajit Rivero MD Unavailable [phone] Antwan Keller MD Unavailable [phone] Slim Corado MD Unavailable Allergies No [...] lumbar 04/21/19 Rheumatoid arthritis involving multiple sites Lumbar radiculopathy 02/09/2021 Sacroiliitis 07/08/2020 Chronic left-sided low back pain without sciatic a 07/08/2020 Chronic rhinitis 07/12/2013 Overview (06/02/2016): CHRONIC RHINITIS Hyperlipidemia 07/12/2013 Overview (06/02/2016): HYPERLIPIDEMIA NEC/NOS Aortic valve disorder 07/12/2013 Overview (06/02/2016): AORTIC VALVE DISORDER Encounters Date Type Department Care Team Description 06/19/2024 9:20 AM CDT Lab [facility] [address] [place] [address] 05/15/2024 8:44 AM CDT - 05/15/2024 11:59 PM CDT Hospital Encounter [facility] [address] [place] [address], [place]. [address] [place] [address] Claritza Vargas, Keshav Muse MD Sacroiliitis (Primary Dx); Degeneration of intervertebral disc of lumbar region with discogenic back pain Discharge Disposition: Discharge to home or self care 04/23/2024 11:02 AM MANAGER OF DRILLING - 04/23/2024 11:59 PM MANAGER OF DRILLING Hospital Encounter [facility] [address] [place] [address], [place]. [address] [place] [address] Keshav Le MD Sacroiliitis Discharge Disposition: Discharge to home or self care 04/10/2024 10:14 AM MANAGER OF DRILLING - 04/10/2024 11:59 PM MANAGER OF DRILLING Hospital Encounter [facility] [address] [place] [address], [place]. [address] [place] [address] Keshav Le MD Sacroiliitis (Primary Dx); Lumbar radiculopathy; DDD (degenerative disc disease), lumbar Discharge Disposition: Discharge to home or self care from Last 3 Months Immunizations Immunization Administration Dates Next Due Influenza, Trivalent, IM (MDV) 11/27/2011,2010,12/11/2008 Pneumococcal Polysaccharide PPV23 11/27/2011 TD Preservative Free 10/04/2012 Surgical History Surgery Date Site/Laterality Comments OTHER SURGICAL HISTORY 02 - cards: Dr Elizabeth OTHER SURGICAL HISTORY Left Hearing Loss: Aid OTHER SURGICAL HISTORY Porcine Aortic valve replacement 2008: declined cardiology, echo f/u; dr cook OTHER SURGICAL HISTORY Heart valve IR INJECTION [...] materials from doctor or pharmacy Sometimes 06/07/2023 [facility] Utilities Answer Date Recorded In the past 12 months has th e [employer], gas, oil, or water [employer] threatened to shut off services in your [...] often do you attend chur ch or pentecostalism services? More than 4 times per year 05/10/2023 Do you belong to any clubs o r organizations such as holiness groups, unions, fraternal or athletic groups, or [...] place to sleep or slept in a halfway (including now)? No 05/10/2023 PHQ-9 Answer Date [...] on file Legal Sex Female 6:40 PM MANAGER OF DRILLING Gender Identity Not on file Sexual Orientation Not on file Obstetrics History Last Filed Vital Signs Vital Sign Reading Time Taken Comments Blood Pressure 159/90 05/15/2024 9:01 AM CDT Pulse 68 05/15/2024 8:58 AM CDT Temperature 36.5 C (97.7 F) 04/23/2024 11:11 AM MANAGER OF DRILLING Respiratory Rate 18 05/15/2024 8:58 AM CDT Oxygen Saturation 100% 05/15/2024 8:58 AM CDT Inhaled Oxygen Concentration - - Weight 59 kg (130 lb) 03/13/2024 9:58 AM MANAGER OF DRILLING Height 157.5 cm (5' 2 ) 03/13/2024 9:58 AM MANAGER OF DRILLING Body Mass Index 23.78 03/13/2024 9:58 AM MANAGER OF DRILLING Plan of Treatment Health Maintenance Due Date Last Done Comments Osteoporosis Screening-Bone Density Scan 1940 Hepatitis B Screening 05/30/1957 Zoster Vaccine (1 of 2) 05/30/1958 Well Visit 65+ 05/30/2004 DTaP/Tdap/Td Vaccine (1 - Tdap) 10/05/2012 3 Pneumococcal vaccine 65+ (2 of 2 - PCV) 11/26/2012 11/27/2011 Fall Risk Assessment 05/17/2024 05/18/2023 Influenza Vaccine (Season Ended) 2024 11/27/2011, 11/25/2010, 12/11/2008 Depression Screening 04/10/2025 04/10/2024, 04/10/2024, 10/23/2023, Additional [...] Read Routine (OP Routine) 04/23/2024 11:24 AM MANAGER OF DRILLING Sacroiliitis from Last 3 Months Results * [...] was last reviewed 2020. Testing performed by: [facility], [address] [place] [address], [place]., [address] Blood 06/19/2024 9:24 AM CDT 06/19/2024 12:54 PM CDT us Evangelina Coe MD LAB BLOOD ORDERABLES Final Resul t ABDIEL MIMS (CRISTIANO) 1 [facility] [place] [address] * Differential, auto (06/19/2024 9:24 AM CDT) Neutrophil abs 3.49 1.50 - 6.50 K/cumm Comment:Testing performed by : [facility], [address] [place] [address]., [address] Imm gran abs 0.05 0.00 - 0.10 K/cumm [facility] (CRISTIANO) Comment:Testing performed by : [facility], [address] [place] [address]., [address] Lymphocyte abs 0.93 0.80 - 3.30 K/cumm [facility] (CRISTIANO) Comment:Testing performed by : [facility], [address] [place] [address], [address] Monocyte abs 0.69 0.20 - 0.80 K/cumm [facility] (CRISTIANO) Comment:Testing performed by : [facility], [address] [place] [address]., [address] Eosinophil abs 0.25 0.00 - 0.50 K/cumm [facility] (CRISTIANO) Comment:Testing performed by : [address] [address] Basophil abs 0.03 0.00 - 0.10 K/cumm [facility] (CRISTIANO) Comment:Testing performed by : [address], [address] Neutrophil pct 64.1 % [facility] R [facility] (CASSEL) Comment: Interpretive Data Percent cell count reference ranges are not reported, since discordance with absolute values may lead to misinterpretation of CBC data. Current Interpretive Data was last revised on 2017. Testing performed by: [address], [address] Imm gran pct 0.9 % [facility] (CRISTIANO) Comment: Interpretive Data Percent cell count reference ranges are not reported, since discordance with absolute values may lead to misinterpretation of CBC data. Current Interpretive Data was last revised on 2017. Testing performed by: [address], [address] Lymphocyte pct 17.1 % [facility] (CRISTIANO) Comment: Interpretive Data Percent cell count reference ranges are not reported, since discordance with absolute values may lead to misinterpretation of CBC data. Current Interpretive Data was last revised on 2017. Testing performed by: [facility], [address] [place] [address]., [address] Monocyte pct 12.7 % ABDIEL MIMS (CRISTIANO) Comment: Interpretive Data Percent cell count reference ranges are not reported, since discordance with absolute values may lead to misinterpretation of CBC data. Current Interpretive Data was last revised on 2017. Testing performed by: [address] [address] Eosinophil pct 4.6 % JOHNNE Aldair [facility] (CRISTIANO) Comment: Interpretive Data Percent cell count reference ranges are not reported, since discordance with absolute values may lead to misinterpretation of CBC data. Current Interpretive Data was last revised on 2017. Testing performed by: [address] [address] Basophil pct 0.6 % ABDIEL M[facility]S (CRISTIANO) Comment: Interpretive Data Percent cell count reference ranges are not reported, since discordance with absolute values may lead to misinterpretation of CBC data. Current Interpretive Data was last revised on 2017. Testing performed by: [address] [address] Blood 06/19/2024 9:24 AM CDT 06/19/2024 12:44 PM CDT us Evangelina Coe MD LAB BLOOD ORDERABLES Final Resul t ABDIEL MIMS (CRISTIANO) 1 [facility] Department [place] [address] * (ABNORMAL) CBC with auto differential (06/19/2024 9:24 AM CDT) WBC 5.44 3.80 - 9.90 K/cumm Comment:Testing performed by : [address] [address] Hgb 11.6(L) 11.9 - 15.5 g/dL [facility] (CRISTIANO) Comment:Testing performed by : [facility], [address] [place] [address], [address] Hct 37.6 35.6 - 45.5 % [facility] (CRISTIANO) Comment:Testing performed by : [facility], [address] [place] [address], [address] Plt 216 150 - 400 K/cumm [facility] (CRISTIANO) Comment:Testing performed by : [facility], [address] [place] [address], [address] MPV 10.9 9.1 - 12.3 fL [facility] ([facility]IST[facility]) Comment:Testing performed by : [address], [address] RBC 4.14 3.90 - 5.20 M/cumm [facility] (CRISTIANO) Comment:Testing performed by : [address], [address] MCV 90.8 81.3 - 96.4 fL [facility] ([facility]IST[facility]O) Comment:Testing performed by : [address], [address] MCH 28.0 27.1 - 33.3 pg [facility] (CRISTIANO) Comment:Testing performed by : [address], [address] MCHC 30.9(L) 32.3 - 35.7 g/dL [facility] (CRIST[facility]O) Comment:Testing performed by : [address], [address] RDW CV 15.6(H) 11.1 - 14.9 % [facility] (CRISTIANO) Comment:Testing performed by : [address], [address] RDW SD 51.8(H) 35.7 - 48.1 fL [facility] ([facility]IST[facility]) Comment:Testing performed by : [address], [address] NRBC abs 0.00 0.00 - 0.01 K/cumm [facility] ([facility]IST[facility]) Comment:Testing performed by : [address], [address] Blood 06/19/2024 9:24 AM CDT 06/19/2024 12:44 PM CDT us Evangelina Coe MD LAB BLOOD ORDERABLES Final Resul t JOHNJOSE MARIA MIMS (CRISTIANO) 1 [facility] [place] [address] * Hepatitis panel, acute Blood (06/19/2024 9:24 AM CDT) Hep A IgM Nonreactive Nonreactive Comment: Interpretive Data: If Hep A IgM Ab is reported as Equivocal, a new sample should be drawn in two weeks for testing. Current interpretive data was last revised on 19. Testing performed by: [address] [address] Hep B core IgM Nonreactive Nonreactive Umang [facility] (CRISTIANO) Comment: Interpretive Data If HepB Core IgM Ab is reported as Equivocal, a new sample should be drawn in two weeks for testing. Current interpretive data was last revised on 19. Testing performed by: [facility], [address] [place] [address]., [address] Hep C Ab Nonreactive Nonreactive ABDIEL MIMS [...] last revised on 2019. Testing performed by: [facility], [address] [place] [address]., [address] HepBsAg Nonreactive Nonreactive ABDIEL MIMS (CRISTIANO) Comment:Testing performed by : [address] [address] Blood 06/19/2024 9:24 AM CDT 06/19/2024 12:44 PM CDT us Evangelina Coe MD LAB MICROBIOLOGY - GENERAL ORDER JAZMYN Final Result Performing Organization Address [facility] Co de Phone Number ABDIEL MIMS (CASSEL) [address] [place] [address] * (ABNORMAL) Erythrocyte sedimentation rate (06/19/2024 9:24 AM CDT) Erythrocyte sedimentation rate 65(H) 1 - 30 mm/hr Blood 06/19/2024 9:24 AM CDT 06/19/2024 12:44 PM CDT Evangelina Coe MD LAB BLOOD ORDERABLES Final Resul t Performing Organization Address [facility] de Phone Number ABDIEL MIMS (CASSEL) [address] [place] [address] * (ABNORMAL) CRP (acute phase) (06/19/2024 9:24 AM CDT) Pathologist [facility] CRP 30.4(H) <=10.0 mg/L Comment:Testing performed by : [address] [address] Blood 06/19/2024 9:24 AM CDT 06/19/2024 12:44 PM CDT Evangelina Coe MD LAB BLOOD ORDERABLES Final Resul t Performing Organization Address [facility] Co de Phone Number ABDIEL MIMS (CASSEL) [address] [place] [address] * (ABNORMAL) Comprehensive metabolic panel (06/19/2024 9:24 AM CDT) Pathologist [facility] Sodium 137 135 - 145 mmol/L Comment:Testing performed by : [address] [address] Potassium, pl 4.1 3.3 - 4.9 mmol/L ABDIEL MIMS (CRISTIANO) Comment:Testing performed by : [address] [address] Chloride 97 97 - 110 mmol/L ABDIEL M[facility]S (CRISTIANO) Comment:Testing performed by : [facility] [address] [place] [address]., [address] CO2 27 22 - 32 mmol/L [facility] (CRIST[facility]O) Comment:Testing performed by : [address] [address] Anion gap 13 2 - 15 mmol/L [facility] (CRIST[facility]O) Comment:Testing performed by : [address], [address] BUN 36(H) 6 - 25 mg/dL [facility] (CRIST[facility]) Comment:Testing performed by : [address], [address] Creatinine 1.59(H) 0.60 - 1.10 mg/dL [facility] (CRISTIANO) Comment:Testing performed by : [address], [address] Glucose 100 70 - 199 mg/dL CERNER [...] was last revised 2022. Testing performed by: [address], [address] Calcium 9.6 8.5 - 10.3 mg/dL [facility] ([facility]IST[facility]) Comment:Testing performed by : [address] [address] Bilirubin, total 0.4 0.1 - 1.2 mg/dL [facility] (CRIST[facility]) Comment:Testing performed by : [address] [address] Protein, pl 7.4 6.5 - 8.5 g/dL [facility] (CRIST[facility]) Comment:Testing performed by : [address], [address] Albumin 3.9 3.5 - 5.0 g/dL [facility] (CRIST[facility]O) Comment:Testing performed by : [facility], [address] [place] [address]., [address] Alk phos 149(H) 40 - 130 Units/L [facility] (CRISTIANO) Comment:Testing performed by : [facility], [address] [place] [address]., [address] ALT 16 7 - 45 Units/L [facility] (CRISTIANO) Comment:Testing performed by : [facility], [address] [place] [address], [address] AST 31 10 - 45 Units/L [facility] (CRISTIANO) Comment:Testing performed by : [facility], [address] [place] [address], [address] Blood 06/19/2024 9:24 AM CDT 06/19/2024 12:44 PM CDT us Evangelina Coe MD LAB BLOOD ORDERABLES Final Resul t Performing Organization Address [facility]/ZIP Co de Phone Number [facility] ([place]ISTIANO) [address] [place] [address] [place] [address] * Imaging SI Joint Injection Left (86215) (04/23/2024 11:24 AM MANAGER OF DRILLING) Narrative [facility] - 04/23/2024 11:24 AM MANAGER OF DRILLING The images from this study are not interpreted by Radiology. Please refer to the physician's procedure / OR operative note. us Keshav Le MD IMG PAIN MGMT PROCEDURE S Final Result Performing Organization Address City/[facility]/ZIP Co de Phone Number [facility] from Last 3 Months Insurance MEDICARE [facility] [id number] [place] [address] MEDICARE Advance Directives For more information, please contact: [phone] * Full Code (Latest Code Status on File) Date Activated Date Inactivated Comments 05/09/2023 9:56 PM 05/18/2023 12:32 PM Care Teams Permit Agent Relationship Specialty Start Date End Date Esdras Donovan MD [address] [address] PCP - General 09/05/16 Ajit Rivero MD 2 [place] [address] [address] Consulting Physician Cardiovascular Disease 05/18/23 Antwan Keller MD [address] [facility] [address] [place] [address] Consulting Physician Nephrology 05/18/23 Slim Corado MD [address] [facility] [address] [place] [address] Consulting Physician Pulmonary Disease 05/18/23
--- OUTSIDE RECORDS SUMMARY | 2024-07-02 11:48 | XMS_ITS | Encounter Summary ---
Author Organization [facility] Address [address] [place] [address] Phone Care Team Providers Care Power Plant Mechanic Name Role Phone Esdras Donovan MD Primary Care Provider [phone] Murray Saab MD Unavailable Unavailabl e Geronimo Coe MD Unavailable [phone] Ravi Tanner PAC Unavailable [phone] Encounter Details Date Type Department Care Team (Late Contact Info) Description 06/07/2023 Telephone [facility] [address] [place] [address] Esdras Donovan MD #[address] [address] Social History Tobacco Use Types Packs/Day Years [...] Department Care Team (Late Contact Info) Description 08/27/2024 10:45 AM CDT Office Visit [facility] - Family Medicine - [place] [address] [place] [address] Esdras Donovan MD [address] [place] [address] documented as of this encounter Visit Diagnoses Not on filedocumented in this encounter Additional Health Concerns Assessment Noted Time PHQ-9 Depression Total Score: 0 04/02/19 20 8:40 AM TAPPING MACHINE OPERATOR documented as of this encounter Care Teams Power Plant Mechanic Relationship Specialty Start Date End Date Esdras Donovan MD [address] [address] PCP - General Family Medicine 09/06/16 Murray Saab MD #[address] [place] [address] Pain Medicine-Pain Management 09/06/16 Geronimo Coe MD #[address] [address] Rheumatology 09/06/16 Ravi Tanner PAC [address] [place] [address] Physician Neurophysiological Technician Physician Neurophysiological Technician 12/20/23 documented as of this encounter
--- OUTSIDE RECORDS SUMMARY | 2024-07-02 11:48 | XMS_ITS | Clinical Summary ---
Author Organization [facility] Address [address] [place] [address] Care Team Providers Care Lay Out Inspector Name Role Phone Esdras Donovan MD MPH Primary Care Provider [phone] Allergies No known active allergies Medications aspirin (ST DENZEL) 81 MG EC tablet Take 81 mg by mouth 1 (one) time each day Active cholecalciferol (VITAMIN D-3) 25 MCG (1000 UT) tablet Take 1,000 Units by mouth in the morning. 9 Active cyanocobalamin 500 MCG tablet Take 1 tablet by mouth 1 (one) time each day 0 Active fluticasone (FLONASE) 50 MCG/ACT nasal spray Administer 1 spray into affected nostril(s) in the morning. 3 Active furosemide (LASIX) 40 MG tablet Take 40 mg by mouth in the morning. 4 Active gabapentin (NEURONTIN) 100 MG capsule Take 100 mg by mouth in the morning and 100 mg at noon and 100 mg in the evening. 3 Active leflunomide (ARAVA) 20 MG tablet 1 Active Active Problems Problem Noted Date Diagnosed Date Acute nontraumatic kidney injury 05/09/2023 Serum creatinine above reference range 7 Aortic valve disorder 07/12/2013 Overview (05/30/2023): AORTIC VALVE DISORDER Overview: AORTIC VALVE DISORDER Chronic rhinitis Encounters Date Type Department Care Team Description 04/04/2024 Orders Only [facility] [address] [place] [id number] Antwan Keller MD Stage 3b chronic kidney disease (HCC); Hypertension; Anemia in chronic kidney disease; Secondary hyperparathyroidism of renal origin (HCC); Hypertensive chronic kidney disease, unspecified, with chronic kidney disease stage I through stage IV, or unspecified; Type 2 diabetes mellitus with diabetic chronic kidney disease (HCC) from Last 3 Months Immunizations Immunization Administration Dates Next Due Influenza, Unspecified 11/27/2011,11/25/2010, [...] Comments Blood Pressure 143/71 04/01/2024 12:35 PM SHAPE CARVER Pulse 67 04/01/2024 12:35 PM SHAPE CARVER Temperature 36.7 C (98 F) 04/01/2024 12:35 PM SHAPE CARVER Respiratory Rate - - Oxygen Saturation 97% 04/01/2024 12:35 PM SHAPE CARVER Inhaled Oxygen Concentration - - Weight 60.1 kg (132 lb 8 oz) 04/01/2024 12:35 PM SHAPE CARVER Height 157.5 cm (5' 2 ) 04/01/2024 12:35 PM SHAPE CARVER Body Mass Index 24.23 04/01/2024 12:35 PM SHAPE CARVER Plan of Treatment Upcoming Encounters Date Type Department Care Team (Late st Contact Info) Description 09/23/2024 1:15 PM CDT Office Visit [facility] [address] [facility] [place] [address] Antwan Keller MD [address] [facility] [place] [address] Health Maintenance Due Date Last Done Comments Pneumococcal Vaccine: 50+ Years (2 of 2 - PCV) 11/26/2012 11/27/2011 Diabetes: Hemoglobin A1C 04/01/2024 Diabetes: Ophthalmology Exam 04/01/2024 Diabetes: Pedal Pulse Checked 04/01/2024 Diabetes: Sensory Foot Exam 04/01/2024 Diabetes: Visual Foot Exam 04/01/2024 Influenza Vaccine (Season Ended) 2024 11/27/2011, 11/25/2010, 12/11/2008 Hepatitis B Vaccine Aged Out No longe r eligible based on patient's age to complete this topic Insurance Medicare [facility] Benefit Administrative Systems Medicare Care Teams Lay Out Inspector Relationship Specialty Start Date End Date Esdras Donovan MD MPH [address] [address] PCP - General Family Medicine 05/14/23
--- OUTSIDE RECORDS SUMMARY | 2024-07-02 11:48 | XMS_ITS | Encounter Summary ---
Author Organization [facility] Address [address] [place] [address] Phone Care Team Providers Care Jaw Skinner Name Role Phone Esdras Donovan MD Primary Care Provider [phone] Murray Saab MD Unavailable Unavailabl e Geronimo Coe MD Unavailable [phone] Ravi Tanner PAC Unavailable [phone] Reason for Visit * Reason Comments Medication Refill Encounter Details Date Type Department Care Team (Late st Contact Info) Description 09/27/2020 Refill [facility] [address] [place] [address] Esdras Donovan MD #[address] [address] Medication Refill Social History Tobacco Use Types [...] Nash 10/01/19 Office Visit Esdras Donovan MD [facility] Showing recent visits within past 365 [...] Description 08/27/2024 10:45 AM CDT Office Visit [facility] - Family Medicine - [place] [address] [place] [address] Esdras Donovan MD [address] [address] documented as of this encounter Visit Diagnoses Not on filedocumented in this encounter Additional Health Concerns Assessment Noted Time PHQ-9 Depression Total Score: 0 04/02/19 20 8:40 AM ICER AIR CONDITIONING documented as of this encounter Care Teams Jaw Skinner Relationship Specialty Start Date End Date Esdras Donovan MD #[address] [address] PCP - General Family Medicine 09/06/16 Murrya Saab MD #[address] [address] Pain Medicine-Pain Management 09/06/16 Geronimo Coe MD #[address] [address] Rheumatology 09/06/16 Ravi Tanner PAC [address]1 [place] [address] Physician Escort Service Attendant Physician Escort Service Attendant 12/20/23 documented as of this encounter
--- OUTSIDE RECORDS SUMMARY | 2024-07-02 11:48 | XMS_ITS | Encounter Summary ---
Author Organization [facility] Address [address] [place] [address] Care Team Providers Care Polysomnography Tech Name Role Phone Evangelina Coe MD Unavailable Juan Miguel Monique MD Unavailable [phone] Esdras Donovan MD Primary Care Provider [phone] Encounter Details Date Type Department Care Team (Late Contact Info) Description 07/02/2017 [facility] [address] [place] [address] [place] [address] [facility] [address] [place] [address] Social History Tobacco Use Types Packs/Day Years Used Date Smoking Tobacco: Former Cigarettes Q uit: 04/26/2005 Smokeless Tobacco: Never Alcohol Use Standard Drinks/Week Comments No 0 (1 standard drink = 0.6 oz pur e alcohol) Comments Unknown Sex and Gender Information Value Date Recorded Sex Assigned at Not on file Legal Sex Female 6:34 AM CHIEF DEVELOPMENT OFFICER Gender Identity Not on file Sexual Orientation Not on file Occupation Industry Job Start Date Job End Date retired Not on file Not on file Not on file documented as of this encounter Plan of Treatment Upcoming Encounters Date Type Department Care Team (Late Contact Info) Description 11/18/2024 10:00 AM CDT Office Visit [facility] - Rheumatology [address] [facility] [address] [place] [address] [place] [address] [facility] [address] [place] [address] documented as of this encounter Visit Diagnoses Not on filedocumented in this encounter Care Teams Polysomnography Tech Relationship Specialty Start Date End Date Esdras Donovan MD [address] [address] PCP - General Family Medicine 08/28/16 [place] [address] [address] Consulting Physician Internal Medicine 04/27/15 Juan Miguel Monique MD [address] [address] Ophthalmology 09/13/15 documented as of this encounter
--- OUTSIDE RECORDS SUMMARY | 2024-07-02 11:48 | XMS_ITS | Encounter Summary ---
Author Organization [facility] Address [address] [place] [address] Phone Care Team Providers Care Fabrication Lead Name Role Phone Esdras Donovan MD Primary Care Provider [phone] Murray Saab MD Unavailable Unavailabl e Geronimo Coe MD Unavailable [phone] Ravi Tanner PAC Unavailable [phone] Reason for Visit * Reason Comments Medication Refill Encounter Details Date Type Department Care Team (Late st Contact Info) Description 09/17/2020 Refill [facility] [address] [place] [address] Esdras Donovan MD [address] [address] Medication Refill Social History Tobacco Use Types [...] Outpatient Visits 5 months ago [facility] 11 months ago Hyperlipidemia, unspecified hyperlipidemia [facility] 1 year ago B12 deficiency [facility] 1 year ago Vitamin D insufficiency [facility] 2 years ago Vitamin D insufficiency [facility] MD Upcoming Appointments Future Appointments In 1 week Jono Maynard APN, HENNY [facility] Saad, [facility] CUSTODIAN [employer]THLET[employer] EQUIPMENT - Recent and Past Visits Recent Visits Date Type Provider Dept 04/02/20 Office Visit Jono Maynard APN, HENNY [place] 10/01/19 Office Visit Esdras Donovan MD [facility] Saad Showing recent visits within past 460 [...] Description 08/27/2024 10:45 AM CDT Office Visit [facility] [address] [place] [address] Esdras Donovan MD #[address] [address] documented as of this encounter Visit Diagnoses Not on filedocumented in this encounter Additional Health Concerns Assessment Noted Time PHQ-9 Depression Total Score: 0 04/02/19 20 8:40 AM SUPERVISOR ALTERATION WORKROOM documented as of this encounter Care Teams Fabrication Lead Relationship Specialty Start Date End Date Esdras Donovan MD #[address] [address] PCP - General Family Medicine 09/06/16 Murray Saab MD #[address] [address] Pain Medicine-Pain Management 09/06/16 Geronimo Coe MD #[address] [address] Rheumatology 09/06/16 Ravi Tanner PAC #1 [place] [address] Physician County Demonstrator Physician County Demonstrator 12/20/23 documented as of this encounter
--- OUTSIDE RECORDS SUMMARY | 2024-07-02 11:48 | XMS_ITS | Clinical Summary ---
Author Organization [facility] Address [address] [place] [address] Care Team Providers Care Mangle Catcher Name Role Phone Evangelina Coe MD Unavailable Juan Miguel Monique MD Unavailable [phone] Esdras Donovan MD Primary Care Provider [phone] Source Comments [facility] [employer],non-owned Affiliates and Associated Physician Practices is amultiple site organization consisting of ambulatory clinics and hospital sitesin [place], [place], [place] and [place]. This disclosure is being madepursuant to the Care Everywhere program and may not contain all information available regarding this patient. Last updated 17.[facility] [employer] Allergies No known active allergies Medications * Be aware that medications may not be up to date on this document. Alwaysverify current medications with the patient. hydroCHLOROthi azide (HYDRODIURIL) 25 MG tabletIndicati ons:Rheumatoid arthritis involving multiple sites with positive rheumatoid factor (HCC) Take 1 (one) tablet by mouth once daily 8 Active aspirin EC (ECOTRIN) 81 MG tablet Take 1 (one) tablet by mouth once daily Active vitamin D, cholecalcifero l, 2000 units tablet Take 0.5 (one-half) tablet by mouth once daily Active fluticasone propionate (FLONASE) 50 MCG/ACT nasal spray Pearson 2 sprays into each nostril once daily 1 bottles 9 Active D 1000 25 MCG (1000 UT) capsule Take 1 (one) capsule by mouth once daily 0 Active cyanocobalamin (VITAMIN B-12) 500 MCG tablet 0 Active predniSONE (Deltasone) 10 MG tablet 1 tab po qday for 10 days 10 tablet 3 Active Additional Information Patient not taking.Reported on 12/20/2023 gabapentin (Neurontin) 100 MG capsule Take 1 (one) capsule by mouth 3 Active traMADol (Ultram) 50 MG tablet Take 1 (one) tablet by mouth every 6 hours as needed 3 Active hydroxychloroq uine (Plaquenil) 200 MG tablet Take 1 (one) tablet by mouth 2 times daily 180 tablet 4 Active albuterol HFA (Proventil; Ventolin; Proair) 108 (90 Base) MCG/ACT inhaler Inhale 2 (two) puffs by mouth every 6 hours as needed 4 Active carvedilol (Coreg) 3.125 MG tablet Take 1 (one) tablet by mouth 2 times daily 4 Active empagliflozin (Jardiance) 10 MG tablet Take 1 (one) tablet by mouth once daily 4 Active furosemide (Lasix) 40 MG tablet Take 1 (one) tablet by mouth once daily 4 Active pantoprazole EC (Protonix) 40 MG tablet Take 1 (one) tablet by mouth once daily 4 Active sacubitril-eric sartan (Entresto) 24-26 MG tablet Take 1 (one) tablet by mouth every morning 4 Active predniSONE (Deltasone) 10 MG tablet 1 tab po q day as needed 60 tablet 1 4 Active Additional Information Patient not taking.Reported on 12/20/2023 midodrine (Proamatine) 10 MG tablet Take 1 (one) tablet by mouth as needed 5 03/13/19 26 Active predniSONE (Deltasone) 10 MG tablet Take 1 (one) tablet by mouth once daily as needed 60 tablet 1 5 Active leflunomide (Arava) 20 MG tablet Take 1 (one) tablet by mouth once daily 90 tablet 5 Active leflunomide (Arava) 20 MG tablet Take 1 (one) tablet by mouth once daily 90 tablet 4 06/06/19 25 Discontin ued(List Clean-Up) leflunomide (Arava) 20 MG tablet Take 1 (one) tablet by mouth once daily 90 tablet 4 06/06/19 25 Discontin ued(List Clean-Up) Active Problems Problem Noted Date Diagnosed Date [...] Hyperlipidemia 07/12/2013 Overview (10/11/2017): Overview: HYPERLIPIDEMIA NEC/NOS Encounters Date Type Department Care Team Description 06/05/2024 10:00 AM CDT Office Visit [facility] - Rheumatology [address] [place] [id number] Evangelina Coe MD Rheumatoid arthritis involving multiple sites with positive rheumatoid factor (HCC) (Primary Dx); Malaise and fatigue 06/05/2024 Refill [facility] Rheumatology [address] [place] [phone] Evangelina Coe MD Refill Request from Last 3 Months Immunizations Immunization Administration Dates Next Due INFLUENZA VACCINE, TRIV. [...] Recorded Patient Health Questionnaire-2 Score 0 10/09/2023 Comments No Sex and Gender Information Value Date Recorded Sex Assigned at Not on file Legal Sex Female 6:34 AM PERSONNEL GENERALIST MANAGER Gender Identity Not on file Sexual Orientation Not on file Occupation Industry Job Start Date Job End Date retired Not on file Not on file Not on file Last Filed Vital Signs Vital Sign Reading Time Taken Comments Blood Pressure 132/82 06/05/2024 10:19 AM CDT Pulse 64 06/05/2024 10:19 AM CDT Temperature 36.2 C (97.2 F) 03/01/2021 8:51 AM PERSONNEL GENERALIST MANAGER Respiratory Rate 18 12/20/2023 10:49 AM CDT Oxygen Saturation 98% 12/20/2023 10:49 AM CDT Inhaled Oxygen Concentration - - Weight 58.1 kg (128 lb) 06/05/2024 10:19 AM CDT Height 157.5 cm (5' 2.01 ) 06/05/2024 10:19 AM C DT Body Mass Index 23.41 06/05/2024 10:19 AM CDT Plan of Treatment Upcoming Encounters Date Type Department Care Team (Late st Contact Info) Description 11/18/2024 10:00 AM CDT Office Visit [facility] - Rheumatology [address] [facility] [address] [place] [address] [place] [address] [facility] [address] [place] [phone] Health Maintenance Due Date Last Done [...] 10/04/2012 COVID-19 VACCINE (2023-2 5 season) 2023 DEPRESSION SCREENING 02/27/2024 10/09/2023 INFLUENZA VACCINE (Season Ended) 2024 11/27/2011, 11/25/2010, 12/11/2008 HEPATITIS B VACCINE Aged Out No longe r eligible based on patient's age to complete this topic HIB VACCINE Aged Out No longer eligi ble based on patient's age to complete this topic HPV VACCINE Aged Out No longer eligi ble based on patient's age to complete this topic MENINGOCOCCAL (Group B) VACCINE SHARED DECISION-MAKING Aged Out No longer eligible based on patient's age to complete this topic MENINGOCOCCAL GROUPS A/C/Y/W VACCINE Aged Out No longer eligible b ased on patient's age to complete this topic Insurance MEDICARE [facility] Care Teams Mangle Catcher Relationship Specialty Start Date End Date Esdras Donovan MD [address] [place] [address] PCP - General Family Medicine 08/28/16 [place] [address] [place] [phone] Consulting Physician Internal Medicine 04/27/15 Juan Miguel Monique MD [address] [address] Ophthalmology 09/13/15
--- OUTSIDE RECORDS SUMMARY | 2024-07-02 11:48 | XMS_ITS | Encounter Summary ---
Author Organization [facility] Address [address] [address] Phone Care Team Providers Care Director Of Agriculture Name Role Phone Esdras Donovan MD Primary Care Provider [phone] Murray Saab MD Unavailable Unavailabl e Geronimo Coe MD Unavailable [phone] Ravi Tanner PAC Unavailable [phone] Reason for Visit * Reason Comments Medication Refill Encounter Details Date Type Department Care Team (Late st Contact Info) Description 03/06/2022 [facility]ill [facility] - [place] [address]2 [place] [address] Esdras Donovan MD #[address] [address] Medication Refill Social History Tobacco Use Types [...] Ольга Cameron RN - 03/07/2022 8:49 AM BORING MILL OPERATOR Medication failed the protocol, provider to review [...] 01/09/22 Office Visit Jono Maynard APRN, HENNY [facility] 12/22/21 Office Visit Jono Maynard APRN, HENNY [facility] 09/14/21 Office Visit Esdras Donovan MD [facility] Showing recent visits within past 365 days and meeting all other requirements Future Appointments Date Type Provider Dept 03/23/22 Appointment Esdras Donovan MD [facility] Showing future appointments within next 90 days and meeting all other requirements NG MILL OPERATOR documented in this encounter Plan of Treatment Upcoming Encounters Date Type Department Care Team (Late st Contact Info) Description 08/27/2024 10:45 AM CDT Office Visit [facility] - Family Medicine [facility] #2 [place] [address] Esdras Donovan MD #[address] [address] documented as of this encounter Visit Diagnoses Not on filedocumented in this encounter Additional Health Concerns Assessment Noted Time PHQ-9 Depression Total Score: 0 04/02/19 8:40 AM BORING MILL OPERATOR documented as of this encounter Care Teams Director Of Agriculture Relationship Specialty Start Date End Date Esdras Donovan MD #[address] [address] PCP - General Family Medicine 09/06/16 Murray Saab MD #[address] [address] Pain Medicine-Pain Management 09/06/16 Geronimo Coe MD #[address] [address] Rheumatology 09/06/16 Ravi Tanner PAC #1 [place] [address] Physician Exhibitions And Collections Manager Physician Exhibitions And Collections Manager 12/20/23 documented as of this encounter
--- OUTSIDE RECORDS SUMMARY | 2024-07-02 11:48 | XMS_ITS | Encounter Summary ---
Author Organization [facility] Address [address] [place] [address] Phone Care Team Providers Care Jigger Machine Operator Name Role Phone Esdras Donovan MD Primary Care Provider [phone] Murray Saab MD Unavailable Unavailabl e Geronimo Coe MD Unavailable [phone] Ravi Tanner PAC Unavailable [phone] Reason for Visit * Reason Comments Medication Refill Encounter Details Date Type Department Care Team (Late st Contact Info) Description 09/17/2022 Refill [facility] #2 [place] [address] Esdras Donovan MD #[address] [address] Medication Refill Social History Tobacco Use Types [...] Dept 07/26/22 Office Visit Esdras Donovan MD [facility] Saad 03/23/22 [facility]/09/22 Office Visit Jono Maynard APRN, CNP [facility] Saad 12/22/21 Office Visit Jono Maynard APRN, HENNY [facility] Showing recent visits within past 365 days and meeting all other requirements Future Appointments No visits were found meeting these conditions. Showing future appointments within next 90 days and meeting all other requirements documented in this encounter Plan of Treatment Upcoming Encounters Date Type Department Care Team (Late st Contact Info) Description 08/27/2024 10:45 AM CDT Office Visit [facility] - Family Medicine - [place] [address] [place] [address] Esdras Donovan MD [address] [address] documented as of this encounter Visit Diagnoses Not on filedocumented in this encounter Additional Health Concerns Assessment Noted Time PHQ-9 Depression Total Score: 0 04/02/19 20 8:40 AM PROCESS SAFETY ENGINEERING TECHNOLOGIST documented as of this encounter Care Teams Jigger Machine Operator Relationship Specialty Start Date End Date Esdras Donovan MD #[address] [address] PCP - General Family Medicine 09/06/16 Murray Saab MD #[address] [address] Pain Medicine-Pain Management 09/06/16 Geronimo Coe MD #[address] [address] Rheumatology 09/06/16 Ravi Tanner PAC #1 [place] [address] Physician Rehab Services Aide Physician Rehab Services Aide 12/20/23 documented as of this encounter
--- OUTSIDE RECORDS SUMMARY | 2024-07-02 11:48 | XMS_ITS | Encounter Summary ---
Author Organization [facility] Health Address [address] [place] [address] Care Team Providers Care Baking Assistant Name Role Phone Unknown, Provider Primary Care Provider Unavaila Evangelina Lin MD Unavailable Esdras Donovan MD Primary Care Provider [phone] Juan Miguel Monique MD Unavailable [phone] Esdras Donovan MD Primary Care Provider [phone] Encounter Details Date Type Department Care Team (Late st Contact Info) Description 11/25/2014 [facility] Outpatient Visit [facility] [address] [place] [address] [place] [address] [facility] [address] Social History Tobacco Use Types Packs/Day Years Used Date Smoking Tobacco: Never Assessed Comments Unknown Sex and Gender Information Value Date Recorded Sex Assigned at Not on file Legal Sex Female 6:34 AM LOCKSTITCH WAISTBAND SETTER Gender Identity Not on file Sexual Orientation Not on file documented as of this encounter Plan of Treatment Upcoming Encounters Date Type Department Care Team (Late Contact Info) Description 11/18/2024 10:00 AM CDT Office Visit [facility] - Rheumatology [id number] [place] [address] [place] [address] [place] [address] [facility] [address] [place] [phone] documented as of this encounter Visit Diagnoses Not on filedocumented in this encounter Care Teams Baking Assistant Relationship Specialty Start Date End Date Unknown, Provider PCP - General 04/27/15 04/29/15 [place] [address] [place] [address] PCP - General Family Medicine 05/04/15 08/27/16 Esdras Donovan MD [address] [address] PCP - General Family Medicine 08/28/16 [place] [address] [place] [phone] Consulting Physician Internal Medicine 04/27/15 Juan Miguel Monique MD [address] [address] Ophthalmology 09/13/15 documented as of this encounter
== END 2024-07-02 11:57 | disposition home or self-care (01) ==
DX: J18.9 Pneumonia, unspecified organism (principal); Z20.822 Contact with and (suspected) exposure to COVID-19; I10 Essential (primary) hypertension; M06.9 Rheumatoid arthritis, unspecified; Z79.82 Long term (current) use of aspirin; Z87.891 Personal history of nicotine dependence
CPT/HCPCS: 71046; 87426; 87804; 99213; G0463